=== PATIENT | female | born 2005 | race Caucasian/White ===

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

== ENCOUNTER 2024-09-05 18:15 | Outpatient (CLI) | payer BC, SELFPAY ==
[2024-09-05] VITALS (17 sets, daily range): BP systolic 106–119; BP diastolic 60–66; PULSE 81–102; TEMP 37.1; O2SAT 98–100; BMI 41.6
--- NOTE | 2024-09-05 18:15 | PC.NURSE ---
Pt arrives to unit with blurry vision, back pain, and cramping.
--- OUTSIDE RECORDS SUMMARY | 2024-09-05 18:22 | XMS_ITS | Data Portability ---
Author Organization [facility] Address [address] [place] [address] Care Team Providers Care Comic Writer Name Role Phone GISELLE GORE Primary Care Provider Assessment Encounter Date Assessment Date Assessment LastModified by Organization Details LastModified Time 08/31/2024 08/31/2024 Patient is _35__weeks . Discussed plan. Not available 08/31/2024 16:18:29 Plan of Treatment Reminders Order Date Submit Date Provider Last Modified By Organization Details Last Modified Time Details Appointments U/S OB BPP 2024 02:30P M ULTRASOUND Not available Not available Not available NST 2024 03:00P M NST SCHEDULE Not available Not available Not available OB ROUTINE 2024 03:30P M Aaron Falcon CNM Not available Not available Not available U/S OB BPP 2024 02:00P M ULTRASOUND Not available Not available Not available NST 2024 02:30P M NST SCHEDULE Not available Not available Not available OB ROUTINE 2024 03:00P M Aaron Falcon CNM Not available Not available Not available U/S OB BPP 2024 02:00P M ULTRASOUND Not available Not available Not available NST 2024 02:30P M NST SCHEDULE Not available Not available Not available OB ROUTINE 2024 03:00P M Aaron Falcon CNM Not available Not available Not available U/S OB BPP 2024 02:00P M ULTRASOUND Not available Not available Not available NST 2024 02:30P M NST SCHEDULE Not available Not available Not available OB ROUTINE 2024 03:00P M Aaron MederosgleROLANDO Not available Not available Not available Lab None recorde d. Referral None recorde d. Procedures None recorde d. Surgeries None recorde d. Imaging US, obstetr ic, biophys ical profile + non-str ess test [email or web address] [facility] [address], [place], [address], 08/26/2024 22:38:13 non-str ess test 2024 025 [email or web address] [address], [place], [address], 08/27/2024 16:22:09 non-str ess test 2024 025 [email or web address] [address], [place], [address], 09/04/2024 07:32:35 US, obstetr ic, biophys ical profile + non-str ess test 2024 025 [email or web address] [address], [place], [address], 09/01/2024 11:03:17 Medication Orders Valtrex 500 mg tablet [address]/[facility][id number], [address] [place] [address], [address], 08/31/2024 16:18:55 Patient TargetsNo targets recorded. Patient InstructionsNo instructions recorded. Reason for Referral None Reported. Results Created Date Observation Date Name Description Value Unit Range Abnormal Flag Note LastModifiedBy Organization Detail LastModifiedTime 08/08/19 25 08/08/2024 TSH TSH 1.31 uIU/m L 0.30-5 .33 Not Available [facility] (Lab) [address], [place], [address], 08/09/2024 07:53:36 08/08/1908/08/2024 T4 FREE T4, free 0.65 NG/dL 0.60-1 .40 This assay is susce ptibl e to inter feren ce from high level s of bioti n which may false ly eleva te resul ts. Pleas e corre late with clini anurag findi ngs. Not Available [facility] (Lab) [address], [place], [address], 08/09/2024 07:53:37 08/31/1908/31/2024 CULTU RE: GROUP B STREP SCREE N, REFLE X SUSCE PTIBI LITY result report SEE RESULT S BELOW Test: Cultu re: Group B Strep , Refle x Susce ptibi lity ([facility] ) Speci men Sourc e: Vagin a/Rec bassem Speci men Type: Vagin al/Re ctal Speci men Date: 025 1537 Resul t Date: 2024 1431 Resul t Statu s: Final resul t Abnor mal: No Resul ting Lab: [facility] [address] [facility] [address] Tel: CULTU RE ----- ----- ----- --- No Group B strep isola paulino at 2 days (ian ctive broth enhan cemen t) Not Available [facility] (Lab) [address], [place], [address], 09/03/2024 15:35:18 08/08/19 25 08/08/2024 US, jett tric, bioph ysica l profi le + non-s tress test No observ ation record ed. [email or web address] [place] [address], [place], [address], 08/08/2024 14:36:41 08/08/19 25 08/08/2024 US, obste tric, bioph ysica l profi le + non-s tress test No observ ation record ed. [email or web address] [address], [place], [address], 08/08/2024 20:15:22 08/13/19 25 08/13/2024 US, obste tric, follo w-up No observ ation record ed. [facility] [address] [place], [address], 08/14/2024 07:35:24 08/13/19 25 08/08/2024 non-s tress test No observ ation record ed. [email or web address] [address] [address], [place], [address], 08/13/2024 20:35:50 08/14/19 25 08/13/2024 US, obste tric, follo w-up No observ ation record ed. [email or web address] [facility] [address] [place], [address], 08/16/2024 18:33:53 08/24/19 25 08/24/2024 US, obste tric, bioph ysica l profi le + non-s tress test No observ ation record ed. [email or web address] [address] [address], [place], [address], 08/24/2024 17:38:30 08/24/19 25 08/24/2024 US, obste tric, bioph ysica l profi le + non-s tress test No observ ation record ed. [email or web address] [address], [place], [address], 08/28/2024 09:48:46 08/24/19 25 08/24/2024 non-s tress test No observ ation record ed. [email or web address] [address] [address], [place], [address], 08/24/2024 15:54:18 08/27/19 25 08/27/2024 non-s tress test No observ ation record ed. [email or web address] [address] [address], [place], [address], 08/27/2024 15:50:28 08/29/19 25 08/08/2024 US, obste tric, bioph ysica l profi le + non-s tress test No observ ation record ed. [email or web address] [address] [address], [place], [address], 08/29/2024 18:53:27 08/31/19 25 08/31/2024 US, obste tric, bioph ysica l profi le + non-s tress test No observ ation record ed. [email or web address] [place] [address], [place], [address], 08/31/2024 18:34:23 08/31/19 25 08/31/2024 US, obste tric, follo w-up No observ ation record ed. [email or web address] [address] [facility], [place], [address], 09/01/2024 13:13:42 08/31/19 25 08/31/2024 non-s tress test No observ ation record ed. [email or web address] [address] [address], [place], [address], 08/31/2024 18:39:24 08/31/19 25 08/31/2024 non-s tress test No observ ation record ed. [address], [place], [address], 08/31/2024 18:41:41 Result Notes None recorded. Problems Name Problem SNOMED Code Status Onset Date Resolution Date Notes Provider Name and Address Organization Details Recorded Time Herpes simplex 67691559 Active 2023 Maria Esther gil [facility] 4 11:55:25 Hypothyro idism 50209676 Active 2023 Maria Esther gil [facility] 4 11:55:43 Daniel thyroidit is 13329221 Active levothyrox ine 25 mcg - Per MFM, labs every 4-6 weeks until 20wks or until stable, the every 2-3 months testing to start @ 32wks Gabi gil, [facility] 4 10:09:49 Irritable bowel syndrome 04270274 Active 2023 Maria Esther gil [facility] 4 11:55:59 Bipolar disorder 54036765 Active lamotrigin e 100mg daily - MFM 05/18/24 1pm u/s & telemed MFM consult Renuka martines [facility], [facility] 4 15:26:56 83671475 Active 2023 Maria Esther gil, [facility] 4 12:01:33 Bipolar disorder 74035649 Active lamotrigin e 100mg daily - MFM 05/18/24 1pm u/s & telemed MFM consult Renuka martines [facility], [facility] 4 15:26:55 Genital herpes simplex 60079780 Active valtrex 500 gm bid Aaron Falcon CNM [address], [place], [address], [facility] 5 16:18:26 Daniel thyroidit is 62702428 Active levothyrox ine 25 mcg - Per MFM, labs every 4-6 weeks until 20wks or until stable, the every 2-3 months testing to start @ 32wks Gabi gil [facility] 10:09:49 Notes:ADHD Problem Notes None recorded. Procedures Surgical History Date Name Laterality Status Provider Name and Address Organization Details Recorded Time 02/29/2024 Date of Last Pap Smear completed Maria Esther Escobar [facility] 02/29/2024 10:15:59 Imaging Results Imaging Date Name Status LastModified by Organiz ation Details LastModified Time 08/08/2024 US, obstetric, biophysical profile + non-stress test completed [email or web address] [place] [address], [place], [address], 08/08/2024 14:36:41 08/08/2024 US, obstetric, biophysical profile + non-stress test completed [email or web address] [address], [place], [address], 08/08/2024 20:15:22 08/13/2024 US, obstetric, follow-up completed [email or web address] [facility] [address] [place] [address], [address], 08/14/2024 07:35:24 08/08/2024 non-stress test completed [email or web address] [place] [address], [place], [address], 08/13/2024 20:35:50 08/13/2024 US, obstetric, follow-up completed [email or web address] [facility] [address] [place], [address], 08/16/2024 18:33:53 08/24/2024 US, obstetric, biophysical profile + non-stress test completed [email or web address] [place] [address], [place], [address], 08/24/2024 17:38:30 08/24/2024 US, obstetric, biophysical profile + non-stress test completed [email or web address] [address], [place], [address], 08/28/2024 09:48:46 08/24/2024 non-stress test completed [email or web address] [place] [facility] [address], [place], [address], 08/24/2024 15:54:18 08/27/2024 non-stress test completed [email or web address] [place] [facility] [address], [place], [address], 08/27/2024 15:50:28 08/08/2024 US, obstetric, biophysical profile + non-stress test completed [email or web address] [place] [address] [address], [place], [address], 08/29/2024 18:53:27 08/31/2024 US, obstetric, biophysical profile + non-stress test completed [email or web address] [address] [address], [place], [address], 08/31/2024 18:34:23 08/31/2024 US, obstetric, follow-up completed [email or web address] [address], [place], [address], 09/01/2024 13:13:42 08/31/2024 non-stress test completed [place] [address], [place], [address], 08/31/2024 18:39:24 08/31/2024 non-stress test completed [email or web address] [place] [facility] [address], [place], [address], 08/31/2024 18:41:41 Procedure Notes None recorded. Medical Equipment None Reported. Allergies Allergen ID Allergen Name Allergen Category Reaction Reaction Severity Criticality Documentation Date Start Date Code Code System Note Provider Name and Address Organization Details Recorded Time 84259 sulfameth oxazole / trimethop rim medicatio n Not available Not available Not available 11/27/2020 [address] [facility] 11:36:51 Medications Name Sig Start Date Stop Date Status Note LastModified by Organization Details LastModified Time amoxicillin 500 mg capsule 12/30 completed Not Available Not Available Not Available venlafaxine ER 37.5 mg capsule,ext ended release 24 hr TAKE 1 CAPSULE BY MOUTH DAILY FOR 7 DAYS THEN STOP 04/29 completed Not Available Not Available Not Available venlafaxine ER 75 mg capsule,ext ended release 24 hr TAKE 1 CAPSULE(S ) BY MOUTH EVERY DAY BEGIN THIS DOSE IN TWO WEEKS AFTER COMPLETIN G 37.5MG 04/29 completed Not Available Not Available Not Available doxycycline hyclate 100 mg capsule TAKE 1 CAPSULE BY MOUTH TWICE A DAY FOR 7 DAYS 09/09 completed Not Available Not Available Not Available paroxetine 10 mg tablet 11/27 completed Not Available Not Available Not Available azithromyci n 250 mg tablet 12/30 completed Not Available Not Available Not Available fluconazole 150 mg tablet TAKE 1 TABLET BY MOUTH FOR 1 DOSE TODAY,THE N ONE TAB IN 3 DAYS 09/24 completed Not Available Not Available Not Available valacyclovi r 1 gram tablet Take 1 tablet every 12 hours by oral route. 07/27 completed Not Available Not Available Not Available ranitidine 300 mg tablet 12/30 completed Not Available Not Available Not Available fluconazole 200 mg tablet TAKE 1 TABLET BY MOUTH EVERY OTHER DAY X 3 DOSES. 07/27 completed Not Available Not Available Not Available metronidazo le 0.75 % (37.5 mg/5 gram) vaginal gel INSERT 1 APPLICATO RFUL EVERY DAY BY VAGINAL ROUTE WITH MEALS FOR 5 DAYS. 07/27 completed Not Available Not Available Not Available famotidine 40 mg tablet TAKE 1 TABLET BY MOUTH TWICE A DAY 07/27 completed Not Available Not Available Not Available clonazepam 0.5 mg tablet TAKE 1 TABLET(S) ORAL EVERY 12 HOURS NEEDED FOR ANXIETY 02/22 completed Not Available Not Available Not Available dexamethaso ne 6 mg tablet TAKE 1 TABLET BY MOUTH EVERY DAY 04/29 completed Not Available Not Available Not Available hydroxyzine pamoate 50 mg capsule TAKE 1 CAPSULE BY MOUTH 1 TO 2 TIMES DAILY NEEDED FOR ANXIETY 02/22 completed Not Available Not Available Not Available metronidazo le 500 mg tablet TAKE 1 TABLET BY MOUTH 3 TIMES A DAY FOR 7 DAYS, DO NOT DRINK ALCOHOL WITH THIS MEDICATIO N 07/27 completed Not Available Not Available Not Available levothyroxi ne 25 mcg tablet TAKE 1 TABLET BY MOUTH EVERY DAY DIRECTED active Not Available Not Available No t Available lamotrigine 25 mg tablet TAKE 1 TABLET BY MOUTH EVERY DAY 02/22 completed Not Available Not Available Not Available levothyroxi ne 88 mcg tablet 12/30 completed Not Available Not Available Not Available ciprofloxac in 0.3 % eye drops 05/21 completed Not Available Not Available Not Available phenazopyri dine 100 mg tablet TAKE 1 TABLET BY MOUTH 3 TIMES DAILY NEEDED FOR PAIN. 04/29 completed Not Available Not Available Not Available hyoscyamine 0.125 mg disintegrat ing tablet TAKE 1 TABLET EVERY 4 HOURS NEEDED 07/27 completed Not Available Not Available Not Available cephalexin 500 mg capsule TAKE 1 CAPSULE BY MOUTH TWICE A DAY FOR 7 DAYS 04/29 completed Not Available Not Available Not Available paroxetine 20 mg tablet 11/27 completed Not Available Not Available Not Available pantoprazol e 40 mg tablet,robel yed release TAKE 1 TABLET BY MOUTH EVERY DAY 09/09 completed Not Available Not Available Not Available buspirone 30 mg tablet TAKE 1 TABLET BY MOUTH 3 TIMES A DAY NEEDED ANXIETY 04/29 completed Not Available Not Available Not Available dexamethaso ne 4 mg tablet 12/30 completed Not Available Not Available Not Available fluoxetine 10 mg capsule TAKE 1 CAPSULE BY MOUTH EVERY DAY 09/24 completed Not Available Not Available Not Available hydrocortis one 2.5 % topical cream 12/30 completed Not Available Not Available Not Available hydroxyzine HCl 25 mg tablet TAKE 1 TABLET BY MOUTH EVERY 8 HOURS NEEDED ANXIETY, MAX 3 DAY 07/27 completed Not Available Not Available Not Available Valtrex 500 mg tablet Take 1 tablet twice a day by oral route. 2024 active Not Available Not Available Not Avai lable mupirocin 2 % topical ointment 12/30 completed Not Available Not Available Not Available methylpredn isolone 4 mg tablets in a dose pack 04/28 completed Not Available Not Available Not Available albuterol sulfate HFA 90 mcg/actuati on aerosol inhaler active Not Available Not Available Not Available ondansetron 4 mg disintegrat ing tablet TAKE 1-2 TABLET(S) BY MOUTH EVERY 6-8 HOURS NEEDED FOR NAUSEA/VO MITING 04/29 completed Not Available Not Available Not Available cefdinir 300 mg capsule TAKE 1 CAPSULE BY MOUTH EVERY 12 HOURS 04/29 completed Not Available Not Available Not Available fluoxetine 20 mg capsule TAKE 1 CAPSULE BY MOUTH EVERY DAY 07/27 completed Not Available Not Available Not Available dicyclomine 10 mg capsule 05/21 completed Not Available Not Available Not Available lamotrigine 100 mg tablet TAKE 1 TABLET BY MOUTH EVERY DAY IN THE EVENING active Not Available Not Available No t Available naproxen 500 mg tablet TAKE 1 TABLET BY MOUTH TWICE A DAY NEEDED FOR PAIN 02/28 completed Not Available Not Available Not Available amoxicillin 500 mg-potassiu m clavulanate 125 mg tablet 07/13 completed Not Available Not Available Not Available buspirone 15 mg tablet TAKE 1 TABLET(S) TWO TIMES A DAY NEEDED FOR ANXIETY 04/29 completed Not Available Not Available Not Available hydroxyzine pamoate 25 mg capsule TAKE 1 CAPSULE BY MOUTH TWICE DAILY NEEDED FOR ANXIETY 02/28 completed Not Available Not Available Not Available escitalopra m 20 mg tablet 12/30 completed Not Available Not Available Not Available cyclobenzap rine 5 mg tablet Take 1 tablet 3 times a day by oral route as needed. 07/27 completed Not Available Not Available Not Available nitrofurant oin monohydrate /macrocryst als 100 mg capsule TAKE 1 CAPSULE BY MOUTH TWICE A DAY FOR 5 DAYS 11/27 completed Not Available Not Available Not Available levothyroxi ne 25mcg 11/27 completed Not Available Not Available Not Available Vitamin D 04/28 completed Not Available Not Available Not Available pantoprazol e 11/27 completed Not Available Not Available Not Available Lo Loestrin Fe 1 mg-10 mcg (24)/10 mcg (2) tablet TAKE 1 TABLET BY MOUTH EVERY DAY 02/22 completed Not Available Not Available Not Available Afluria Qd 2018- (36 mos up)(PF)60 mcg (15 mcg x4)/0.5 mL IM syringe 12/30 completed Not Available Not Available Not Available ID NOW COVID-19 Test Kit TEST DIRECTED 05/21 completed Not Available Not Available Not Available Vitals Date Recorded Body weight Body mass index (BMI) Body height Systolic blood pressure Diastolic blood pressure Provider Name and Address Organization Details Last Updated DateTime 08/24/2024 64769.13 666 g 39.9 kg/m2 157.48 cm 123 mm[Hg] 80 mm[Hg] Maria Esther Escobar [facility] 15:53:51 Date Recorded Body height Body mass index (BMI) Body height Body mass index (BMI) Body weight Systolic blood pressure Diastolic blood pressure Systolic blood pressure Diastolic blood pressure Provider Name and Address Organization Details Last Updated DateTime 157.48 cm 40.1 kg/m2 157.48 cm 40.1 kg/m2 84587.7 3 g 114 mm[Hg] 74 mm[Hg] 114 mm[Hg] 74 mm[Hg] Maria Esther Escobar [facility] 18:37:55 Date Recorded Body weight Provider Name an d Address Organization Details Last Updated DateTime 08/31/2024 98266.09306 g Aaron Falcon CNM [address], [place], [address], [facility] 08/31/2024 16:21:07 Social History Question Answer Notes LastModified by Organizat ion Details LastModified Time Tobacco Smoking Status Never Smoker Linn gil, [facility] 12/31/2019 12:41:43 What Is Your Level Of Alcohol Consumption? None Information not available 12/31/2019 If You Are , What Was Your Level Of Alcohol Consumption Prior To ? Occasional [email or web address] Information not available 02/29/2024 Are You Blind Or Do You Have Difficulty Seeing? No Information not available 04/29/2022 What Is Your Level Of Caffeine Consumption? Occasional [email or web address] Information not available 03/21/2024 In The 14 Days Before Symptom Onset, Have You Had Close Contact With A Laboratory-confir med COVID-19 While That Case Was Ill? No [email or web address] Information not available 02/29/2024 In The 14 Days Before Symptom Onset, Have You Had Close Contact With A Person Who Is Under Investigation For COVID-19 While That Person Was Ill? No [email or web address] Information not available 02/29/2024 Have You Been To An Area Known To Be High Risk For COVID-19? No [email or web address] Information not available 02/29/2024 Are You Deaf Or Do You Have Serious Difficulty Hearing? No Information not available 04/29/2022 What Type Of Diet Are You Following? REGULAR Information not available 04/29/2022 Which Illicit Or Recreational Drugs Have You Used? Marijuana Information not available 12/31/2019 Do You Or Have You Ever Used E-cigarettes Or Vape? Current User Of Electronic Cigarettes Information not available 07/27/2022 What Is The Highest Grade Or Level Of School You Have Completed Or The Highest Degree You Have Received? 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 Yes [email or web address] Information not available 03/21/2024 Do You Use Protection During Sex? No [email or web address] Information not available 03/21/2024 Do You Use Your Seat Belt Or Car Seat Routinely? Yes Information not available 04/29/2022 Do You Have Smoke And Carbon Monoxide Detectors In Your Home? Yes Information not available 04/29/2022 Do You Or Have You Ever Used Smokeless Tobacco? Never Used Smokeless Tobacco Information not available 07/27/2022 Do You Feel Stressed (tense, Restless, Nervous, Or Anxious, Or Unable To Sleep At Night)? [id number] Information not available 04/29/2022 Do You Use Any Illicit Or Recreational Drugs? No [email or web address] Information not available 03/21/2024 Do You Use Sunscreen Routinely? No [email or web address] Information not available 03/21/2024 Have You Used IV Drugs? No [email or web address] Information not available 03/21/2024 Do You Or Have You Ever Used Any Other Forms Of Tobacco Or Nicotine? Yes Information not available 07/27/2022 Sex: Unknown Functional Status Question Answer Note LastModified by Organizat ion Details LastModified Time Do you have difficulty walking or climbing stairs? No Information not available 04/29/2022 Are you able to walk? [email or web address] Information not available 04/29/2022 Are you able to care for yourself? Yes Information not available 04/29/2022 Do you have difficulty dressing or bathing? No Information not available 04/29/2022 What is your exercise level? Occasional Information not available 12/31/2019 Mental Status None recorded. Family History Relationship Description Onset Age of this Age Resolved Age Notes LastModified by Organization Details LastModified Time Mother Anemia [email or web address] Not available 13:15:13 Mother Cyst of ovary [email or web address] Not available 2023 09:24:50 Mother Polycystic ovary syndrome [email or web address] Not available 2023 09:24:50 Mother Arthritis [email or web address] Not availab le 06/13/2024 09:24:50 Mother Sj gren's syndrome [email or web address] Not available 2023 09:24:50 Father Diabetes mellitus [email or web address] Not available 2019 13:16:08 Father Hypercholest erolemia jgumber Not available 2019 13:16:34 Father Hypertensive disorder [email or web address] Not available 2019 13:16:58 Paternal Grandmother Diabetes mellitus [email or web address] Not available 2019 13:16:08 Paternal Grandmother Family history of breast cancer [email or web address] Not available 2023 09:24:50 Paternal Grandfather Diabetes mellitus [email or web address] Not available 2019 13:16:08 Paternal Grandfather Hypercholest erolemia jgumber Not available 2019 13:16:34 Paternal Grandfather Hypertensive disorder [email or web address] Not available 2019 13:16:58 Paternal Grandfather Disorder of cardiovascul ar system [email or web address] Not available 2023 09:24:50 Maternal Grandfather Malignant tumor of lung [email or web address] Not available 2019 13:17:17 Medical History Condition Response Allergies (Food, seasonal, environmental ) N Other Y Breast Cancer N Drug/Latex Allergies/Reactions Y Blood Transfusion N Dermatologic Disorders N Lung Disease N Defects or Inherited Disease N Breast Problem N Gestational Diabetes N Hematologic disorders N Anesthesia Complications N History of STI Y Deep Vein Thrombosis N Polycystic ovary syndrome N Anxiety Disorder Y Autoimmune disease N Arthritis N Infertility N Polyps N Acid Reflux (GERD) N History of abnormal pap N Cancer N Stroke N Varicosities N Neurologic/Epilepsy Y Endometriosis N High Cholesterol N Headaches N Fibromyalgia N Kidney Disease N Heart Problems N Kidney or Bladder Problems N Thyroid Problems Y GI Problems Y Eating Disorder N Anemia N Art (IVF or FET) N Psychiatric Illness Y Ovarian Cancer N Diabetes N Pulmonary (TB, Asthma) N Hepatitis/Liver Disease N No Past Medical History N Eczema N Urinary Tract Infection Y Abuse/Domestic Violence N Asthma N Trauma/Violence N Depression/ depression Y Heart Disease N Pre-Eclampsia N Hypertension N Osteoporosis N Thrombophilias N Gynecological History Statement/Question Response Abnormal Pap N Date of Last Mammogram Date of LMP 12/27/2023 On BCP's at Conception? N N Was last menstrual period normal Y STIs/STDs Y HPV Vaccine N Duration of Flow (days) 7 Current Control Method Are cycles usually normal N Frequency of Cycle (Q days) 26 Sexually Active? Y Menses Monthly N Date of DEXA bone scan Age of first menstrual cycle 9 Date of Last Pap Smear 02/29/2024 Sexual Problems? N Desired Control Method Condoms LMP Approximate N Obstetrics History GPAL:G 1 P 0 0 0 0 Type Value Living 0 Total 1 Past Encounters Encounter ID Performer Location Encounter Start Date Encounter Closed Date Diagnosis/Indication Diagnosis SNOMED-CT Code Diagnosis ICD10 Code Diagnosis Note [id number] Mary Wright [place] [address] [address] 12/31/2019 12:28:21 12/31/2019 18:14:07 Well child visit 568026070 Z00.129 Take Calcium with Vitamin D 1200mg daily if not receiving in daily diet. It is strongly advised to have an annual flu shot and up can obtain at most pharmacies . If you have not had a TDap shot in the last 10 years you should obtain one as well. Discussed with patient & provided with informatio n regarding Gardisil vaccine to prevent the 4 strains for HPV that cause cervical cancer. Encourage safe sexual practices, to use condoms and limit partners if not already in a monogamous relationsh ip. Do monthly self breast exams. BRCA testing is now available for patients with strong genetic history of female cancer. If interested contact the office. Engage in daily exercise of low impact aerobic exercise 45-60 minutes 4-5 times weekly. Avoid tobacco, illicit drugs, and alcohol. This lifestyle behavior pattern will lead to less health conditions and longer life span. If BMI greater than 25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
--- OUTSIDE RECORDS SUMMARY | 2024-09-05 18:22 | XMS_ITS | Clinical Summary ---
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 2 04/11/2019 Active FLUoxetine 10 MG capsule Take 10 mg by mouth daily. Active levothyroxine 25 MCG tablet Take 25 mcg by mouth every morning. Active Social History Tobacco Use Types Packs/Day Years Used Date Smoking Tobacco: Never Smokeless Tobacco: Never Alcohol Use Standard Drinks/Week Comments No 0 (1 standard drink = 0.6 oz pur e alcohol) AUDIT-C Answer Date Recorded Frequency of Alcohol Consumption Never 04/23/2019 Average Number of Drinks Not on file 019 Frequency of Binge Drinking Not on file 03/27 Comments No Sex and Gender Information Value Date Recorded Sex Assigned at Not on file Legal Sex Female 9:07 PM CDT Gender Identity Not on file Sexual Orientation Not on file Last Filed Vital Signs Vital Sign Reading Time Taken Comments Blood Pressure 121/83 10/05/2022 12:49 AM CDT Pulse 98 10/05/2022 12:49 AM CDT Temperature 36.2 C (97.2 F) 10/05/2022 12:49 AM CDT Respiratory Rate 16 10/05/2022 12:49 AM CDT Oxygen Saturation 100% 10/05/2022 12:49 AM CDT Inhaled Oxygen Concentration - - Weight 72.6 kg (160 lb) 10/05/2022 12:49 AM CDT Height 154.9 cm (5' 1 ) 10/05/2022 12:49 AM CDT Body Mass Index 30.23 10/05/2022 12:49 AM CDT Plan of Treatment Health Maintenance Due Date Last Done Comments Annual Physical 2006 HPV Vaccines (2 - 2-dose series) 09/14/2017 03/14/2017 Meningococcal B Vaccine (1 of 2 - Standard) 2019 Hepatitis C 2021 DTaP, Tdap and Td Vaccines (7 - Td or Tdap) 01/25/2024 01/24/2014, 02/02/2008, 10/09/2004, Additional history exists COVID-19 Vaccine ( season) 2024 04/13/2021, 03/02/2021 Influenza Adult (#1) 2024 06/17/2019 Cervical Cancer Screening Pap Smear (Age 21 to 29) Every 3 Years 04/29/2025 04/29/2022 Cervical Cancer Screening 04/29/2025 Hepatitis B Vaccines Completed 2003, 2003, 2003 Pneumococcal Vaccine: Pediatrics (0 to 5 Years) and At-Risk Patients (6 to 64 Years) Aged Out 2003, 2003, 2003 No longer eligible based on patient's age to complete this topic Meningococcal Vaccine Completed 02/05/2020, 014 RSV Immunizations Under 20 Months Aged Out No longer eligible based on patient's age to complete this topic Insurance Care Teams Balling Head Tender Relationship Specialty Start Date End Date Princess Mancilla NP [address] [place] [address] PCP - General NURSE PRACTITIONER 11/27/21 Cheri Manzanares MD [address] [place] [address] FAMILY PRACTICE 11/27/21
--- OUTSIDE RECORDS SUMMARY | 2024-09-05 18:23 | XMS_ITS | Clinical Summary ---
Author Organization [facility] [employer] Address [address] [place] [address] Care Team Providers Care Claims Service Representative Name Role Phone Katelynn Zheng MD Unavailable Suki Romeo Primary Care Provider [phone] Source Comments [facility],non-owned Affiliates and Associated Physician Practices is amultiple site organization consisting of ambulatory clinics and hospital sitesin [place], [place], [place] and [place]. This disclosure is being madepursuant to the Care Everywhere program and may not contain all information available regarding this patient. Last updated 18.[facility] [employer] Allergies Active Allergy Reactions Criticality Noted Date Comments Sulfa Antibiotics Unknown 05/26/2015 Sulfamethoxazole W-Trimethoprim Other,Urticaria Medium 05/26/2015 Medications * Be aware that medications may not be up to date on this document. Alwaysverify current medications with the patient. Medication Sig Dispensed Refills Start Date End Date Status hydrOXYzine pamoate (Vistaril) 25 MG capsule TAKE 1 CAPSULE BY MOUTH 4 TIMES A DAY NEEDED FOR ANXIETY 07/26/2023 Active lamoTRIgine (LaMICtal) 100 MG tablet Take 1 (one) tablet by mouth every evening 07/13/2023 Active levothyroxine (Synthroid) 25 MCG tablet Take 1 (one) tablet by mouth once daily 08/11/2022 Active naproxen (Naprosyn) 500 MG tabletIndications:P olyarthritis,Psoria sis Take 1 (one) tablet by mouth 2 times daily as needed for Pain 60 tablet 08/02/2023 Active Additional Information Patient not taking.Reason: Patient adjusted, Reported on 04/18/2024 valACYclovir (Valtrex) 1 GM tablet Take 0.5 (one-half) tablet by mouth 2 times daily Active Vit-Fe Fumarate-FA ( vitamin) 28-0.8 MG tabletIndications:P regnancy Take 1 (one) tablet by mouth once daily Reasons: Active Active Problems Problem Noted Date Diagnosed Date BMI 39.0-39.9,adult 08/10/2024 Thyroid disease affecting 08/10/2024 Obesity affecting 08/10/2024 Bipolar disease during , antepartum Estimated Date of Delivery Comme nts Yes 10/02/2024 Based on last me nstrual period of 12/27/2023 Resolved Problems Problem Noted Date Diagnosed Date Resolved Date Constipation 08/08/2014 12/04/2014 Urinary tract infection 12/09/200905/26 Overview (06/01/2015): Encounters Date Type Department Care Team Description 08/13/2024 1:45 PM FORKLIFT TECHNICIAN - 08/13/2024 11:59 PM FORKLIFT TECHNICIAN Hospital Encounter [facility] [address] [place] [id number] Head, Trini Traore MD Discharge Disposition: Home or Self Care 07/13/2024 1:45 PM FORKLIFT TECHNICIAN - 07/13/2024 11:59 PM FORKLIFT TECHNICIAN Hospital Encounter [facility] [address] [place] [id number] Rony Velez MD Discharge Disposition: Home or Self Care 06/26/2024 2:20 PM FORKLIFT TECHNICIAN Office Visit [facility] - Rheumatology [address] [place] [address] Katelynn Zheng MD Polyarthritis (Primary Dx) 06/26/2024 Travel 06/15/2024 12:56 PM FORKLIFT TECHNICIAN - 06/15/2024 11:59 PM FORKLIFT TECHNICIAN Hospital Encounter [facility] [address] [place] [id number] Kaitlin Tolbert MD BOBBIN HAULER Discharge Disposition: Home or Self Care 06/15/2024 Orders Only [facility] - Rheumatology [address] [place] [address] Katelynn Zheng MD from Last 3 Months Family History Medical History Relation Name Comments Diabetes - Type 2 Father High Cholesterol Father Hypertension Father Cancer - Lung Maternal Grandfather Cholelithiasis Maternal Grandmother IBS Maternal Grandmother Ulcerative Colitis Maternal Grandmother Cholelithiasis Mother GERD - Gastroesophageal Reflux Disease Mother IBS Mother Stomach ulcers Mother Psoriasis Other 2 possible rheuma toid Cancer - Breast Paternal Grandmother Celiac Disease Neg Hx Maternal cous in Relation Name Status Comments Father Maternal Grandfather Maternal Grandmother Mother Other 1 Other 2 Paternal Grandmother Social History Tobacco Use Types Packs/Day Years Used Date Smoking Tobacco: Never Passive Smoke Exposure: Past Smokeless Tobacco: Never Tobacco Cessation:Counseling Given: Not Answered Alcohol Use Standard Drinks/Week Comments No 0 (1 standard drink = 0.6 oz pur e alcohol) PHQ-2 Answer Date Recorded Patient Health Questionnaire-2 Score 0 06/26/2024 Estimated Date of Delivery Comme nts Yes 10/02/2024 Based on last me nstrual period of 12/27/2023 Sex and Gender Information Value Date Recorded Sex Assigned at Not on file Gender Identity Not on file Sexual Orientation Not on file Last Filed Vital Signs Vital Sign Reading Time Taken Comments Blood Pressure 130/81 08/13/2024 2:56 PM FORKLIFT TECHNICIAN Pulse 113 08/13/2024 2:56 PM FORKLIFT TECHNICIAN Temperature 36.1 C (97 F) 06/26/2024 2:27 PM FORKLIFT TECHNICIAN Respiratory Rate 20 06/06/2015 12:3 0 PM FORKLIFT TECHNICIAN Oxygen Saturation 97% 06/26/2024 2:27 PM FORKLIFT TECHNICIAN Inhaled Oxygen Concentration 100% 12:00 PM FORKLIFT TECHNICIAN Weight 94.3 kg (207 lb 12.8 oz) 06/26/2024 2:27 PM FORKLIFT TECHNICIAN Height 154.9 cm (5' 1 ) 04/18/2024 1:13 PM CDT Body Mass Index 39.26 04/18/2024 1:13 PM CDT Plan of Treatment Upcoming Encounters Date Type Department Care Team (Late st Contact Info) Description 12/26/2024 2:40 PM CDT Office Visit [facility] - Rheumatology [address] [place] [address] Katelynn Zheng MD [address] [place] [id number] Health Maintenance Due Date Last Done Comments HIV SCREENING 2018 HPV VACCINE (1 - 3-dose series) 2018 CHLAMYDIA/GONORRHEA SCREENING 2019 MENINGOCOCCAL (Group B) VACCINE (1 of 2 - Standard) 2019 HEPATITIS C SCREENING 01/13/2021 DTAP/TDAP/TD VACCINES (1 - Tdap) 2022 HEPATITIS B VACCINE (1 of 3 - 19+ 3-dose series) 2022 COVID-19 VACCINE (3 - 2023-2 5 season) 2024 04/13/2021, 03/02/2021 INFLUENZA VACCINE (#1) 2024 06/17/2019 OB-ONE HOUR GLUCOSE 06/26/2024 OB-TDAP CURRENT 07/03/2024 OB-RHOGAM INJECTION 07/10/2024 OB-GROUP B STREP SCREEN 08/28/2024 PAP SMEAR 02/28/2027 02/29/2024, 02/29/2024, 09/01/2021 ZOSTER VACCINE (1 of 2) 2053 HIB VACCINE Aged Out No longer eligi ble based on patient's age to complete this topic MENINGOCOCCAL VACCINE Aged Out No anaid huy eligible based on patient's age to complete this topic PNEUMOCOCCAL VACCINE Aged Out No long er eligible based on patient's age to complete this topic Respiratory Syncytial Virus (RSV) Vaccine Pt: or over 60 yrs (No Doses Required) Completed Procedures Procedure Name Priority Date/Time Associated Diagnosis Comments SONOGRAM - COMPLETE Routine 08/13/2024 1 :59 PM FORKLIFT TECHNICIAN Encounter for supervision of normal first in second trimester (HCC) Medication exposure during first trimester of (HCC) History of Daniel thyroiditis 28 weeks gestation of (HCC) Encounter for follow-up ultrasound of anatomy (HCC) Encounter for ultrasound to assess growth (HCC) SONOGRAM - COMPLETE Routine 07/13/2024 1 :51 PM FORKLIFT TECHNICIAN Encounter for supervision of normal first in second trimester ([facility]) Medication exposure during first trimester of (HCC) History of Daniel thyroiditis 28 weeks gestation of ([facility]) Encounter for follow-up ultrasound of anatomy ([facility]) Encounter for ultrasound to assess growth ([facility]) C-REACTIVE PROTEIN 06/15/2024 2: 32 PM FORKLIFT TECHNICIAN CBC W AUTO DIFFERENTIAL 06/15/2024 2:32 PM FORKLIFT TECHNICIAN ERYTHROCYTE SEDIMENTATION RATE 06/15/2024 2:32 PM FORKLIFT TECHNICIAN HEPATIC FUNCTION PANEL 2:32 PM FORKLIFT TECHNICIAN BUN/CREATININE RATIO W/EGFR 06/15/2024 2:32 PM FORKLIFT TECHNICIAN SONOGRAM - COMPLETE Routine 06/15/2024 1 2:58 PM FORKLIFT TECHNICIAN Medication exposure during first trimester of ([facility]) History of Daniel thyroiditis Encounter for supervision of normal first in second trimester ([facility]) 24 weeks gestation of ([facility]) from Last 3 Months Results * SONOGRAM - COMPLETE (08/13/2024 1:59 PM FORKLIFT TECHNICIAN) Only the most recent of3 resultswithin the time period is included. Linked Results Indication ======== Lamotrigine exposure Obesity, Class I RF + Daniel's Disease History ====== OB History 1 Lab Tests Test Date Result NIPT Low risk Maternal Assessment = Physical Exam Height 155 cm, 5 ft 1 in. Weight 98 kg, 216 lb. Initial weight 86 kg, 189 lb. BMI 40.81 kg/m . Initial BMI 35.71 kg/m . Weight gain 12 kg, 27 lb Method ====== Transabdominal ultrasound examination. View: Sufficient ========= Stein . Number of fetuses: 1 Dating ====== Date Details Gest. age LUKE LMP 12/27/2023 32 w + 6 d 10/02/2024 Stated LUKE 32 w + 6 d 10/02/2024 Assigned dating based on the LMP, selected on 06/15/2024 32 w + 6 d 10/02/2024 General Evaluation Cardiac activity present. FHR 134 bpm. Presentation: cephalic Placenta: Placental site: anterior Amniotic Fluid Assessment ===== Amount of AF: normal MVP 4.3 cm. JOSEPH 13.7 cm. Q1 3.9 cm, Q2 1.4 cm, Q3 4.1 cm, Q4 4.3 cm Biophysical Profile 2: breathing movements 2: Gross body movements 2: tone 2: Amniotic fluid volume NST: reactive 05/03 Biophysical profile score Non Stress Test NST interpretation: reactive. Baseline FHR 130 bpm. Baseline variability: moderate. Accelerations: present Biometry BPD 80.2 mm 32w 1d 24% Hadlock HC 293.8 mm 32w 3d 9% Hadlock AC 305.8 mm 34w 4d 90% Hadlock Femur 62.1 mm 32w 1d 21% Hadlock Humerus 57.6 mm 33w 3d 76% Princess HC / AC 0.96 Weight Calculation: EFW 2,195 g 59% Hadlock EFW (lb,oz) 4 lb 13 oz EFW by Hadlock (EDR-VI-WO-FL) overall normal range, but the AC is at the 90th% Growth Overview = Exam date GA BPD (mm) HC (mm) AC (mm) FL (mm) HL (mm) EFW (g) 06/15/2024 24w 3d 61.6 65% 222 24% 204.1 60% 42.8 24% 40.9 51% 710 46% 07/13/2024 28w 3d 70.5 34% 255.4 7% 244.3 51% 52.6 23% 47.4 27% 1211 34% 08/13/2024 32w 6d 80.2 24% 293.8 9% 305.8 90% 62.1 21% 57.6 76% 2195 59% Anatomy The following structures appear normal: Abdomen Stomach. Kidneys. Bladder. Impression ========= Single, live, intrauterine at 32w 6d growth appears overall normal range, but the AC is at the 90th% Amniotic fluid volume: normal Biophysical profile: 05/03 Follow-up ======== Follow up ultrasound in 4 weeks for growth assessment is recommended Continue weekly BPP/NST at primary OB office, as scheduled Coding ====== Procedures 70013: [place] [address]: Biophysical Profile W NST L PETROLEUM PACS Anatomical Region Laterality Modality Other 08/13/2024 1:59 PM FORKLIFT TECHNICIAN Desiree Connell MD [facility] ORDERABLES * (ABNORMAL) BUN/CREATININE RATIO W/EGFR (06/15/2024 2:32 PM FORKLIFT TECHNICIAN) Pathologist [facility] BUN 9 7 - 25 mg/dL [facility] Creatinine 0.48(L) 0.50 - 0.96 mg/dL [facility] eGFR by Cystatin C 138 > OR = 60 mL/min/1.7 3m2 [facility] BUN/Creatinine Ratio 19 6 - 22 (calc) [facility] Comment: Test Performed at: [facility] [id number] [place] [address] NOHEMI BLAKELY MD 06/15/2024 2:32 PM FORKLIFT TECHNICIAN 06/15/2024 2:34 PM FORKLIFT TECHNICIAN Katelynn Zheng MD LAB - CHEMISTRY [place] [facility] [address] [place] [address] * (ABNORMAL) C-REACTIVE PROTEIN (06/15/2024 2:32 PM FORKLIFT TECHNICIAN) C-Reactive Protein 18.0(H) <8.0 mg/L [facility] Comment: Test Performed at: [facility] [id number] [place] [address] NOHEMI BLAKELY MD 06/15/2024 2:32 PM FORKLIFT TECHNICIAN 06/15/2024 2:34 PM FORKLIFT TECHNICIAN Katelynn Zheng MD LAB - CHEMISTRY ORDE RABLES Performing Organization Address [facility] de Phone Number [facility] [address] [place] [address] * (ABNORMAL) ERYTHROCYTE SEDIMENTATION RATE (06/15/2024 2:32 PM FORKLIFT TECHNICIAN) [facility] Erythrocyte Sedimentation Rate Westergren 28(H) < OR = 20 mm/h [facility] Comment: Test Performed at: [facility]) [id number] [place] [address] NOHEMI BLAKELY MD 06/15/2024 2:32 PM FORKLIFT TECHNICIAN 06/15/2024 2:34 PM FORKLIFT TECHNICIAN Katelynn Zheng MD LAB - HEMATOLOGY ORD ERABLES Performing Organization Address [facility] de Phone Number [facility] [id number] [place] [address] * CBC WITH DIFFERENTIAL (06/15/2024 2:32 PM FORKLIFT TECHNICIAN) Pathologist [facility] White Blood Cell Count 8.8 3.8 - 10.8 Thousand/u L [facility] RBC 4.22 3.80 - 5.10 Million/uL [facility] Hemoglobin 12.1 11.7 - 15.5 g/dL [facility] Hematocrit 36.1 35.0 - 45.0 % [facility] MCV 85.5 80.0 - 100.0 fL [facility] MCH 28.7 27.0 - 33.0 pg [facility] MCHC 33.5 32.0 - 36.0 g/dL [facility] Comment: For adults, a slight decrease in the calculated MCHC value (in the range of 30 to 32 g/dL) is most likely not clinically significant; however, it should be interpreted with caution in correlation with other red cell parameters and the patient's clinical condition. RDW 12.1 11.0 - 15.0 % [facility] Platelet Count 325 140 - 400 Thousand/u L [facility] MPV 9.0 7.5 - 12.5 fL [facility] Neutrophil Absolute 6996 1500 - 7800 cells/uL [facility] Lymphocytes Absolute 1241 850 - 3900 cells/uL [facility] Absolute Monocytes 475 200 - 950 cells/uL [facility] Eosinophils Absolute 70 15 - 500 cells/uL [facility] Basophils Absolute 18 0 - 200 cells/uL [facility] Granulocytes % 79.5 % [facility] Lymphocytes % 14.1 % [facility] Monocytes % 5.4 % [facility] Eosinophils % 0.8 % [facility] Basophils % 0.2 % [facility] Comment: Test Performed at: [facility] ([facility]) [id number] [place] [address] NOHEMI BLAKELY MD 06/15/2024 2:32 PM FORKLIFT TECHNICIAN 06/15/2024 2:34 PM FORKLIFT TECHNICIAN Katelynn Zheng MD LAB - HEMATOLOGY ORD ERABLES Performing Organization Address [facility] Co de Phone Number [facility] [address] [place] [address] * HEPATIC FUNCTION PANEL (06/15/2024 2:32 PM FORKLIFT TECHNICIAN) Pathologist [facility] Protein Total 6.1 6.1 - 8.1 g/dL [facility] Albumin 3.8 3.6 - 5.1 g/dL [facility] Globulin Total 2.3 1.9 - 3.7 g/dL (calc) [facility] Albumin/Globulin Ratio 1.7 1.0 - 2.5 (calc) [facility] Bilirubin Total 0.3 0.2 - 1.2 mg/dL [facility] Bilirubin Direct 0.1 < OR = 0.2 mg/dL [facility] Bilirubin Indirect 0.2 0.2 - 1.2 mg/dL (calc) [facility] Alkaline Phosphatase 80 31 - 125 U/L [facility] AST 11 10 - 30 U/L [facility] ALT 9 6 - 29 U/L [facility] Comment: Test Performed at: [facility]) [id number] [facility] [place] [address] NOHEMI BLAKELY MD 06/15/2024 2:32 PM FORKLIFT TECHNICIAN 06/15/2024 2:34 PM FORKLIFT TECHNICIAN Katelynn Zheng MD LAB - CHEMISTRY ORDE RABBLADIMIR Performing Organization Address [facility] Co de Phone Number [facility] [phone] [place] [address] from Last 3 Months Care Teams Claims Service Representative Relationship Specialty Start Date End Date Suki Romeo PA [address] [place] [address] PCP - General Physician Circular Knife Cutter Machine 06/26/24 Katelynn Zheng MD [address] [place] [address] Rheumatology 08/02/23
--- OUTSIDE RECORDS SUMMARY | 2024-09-05 18:23 | XMS_ITS | Patient Health Summary ---
Author Organization [facility] Address [address] [place] [address] Care Team Providers Care Feeder Catcher Name Role Phone Katelynn Zheng MD Unavailable Suki Romeo Primary Care Provider [phone] Note from [facility],non-owned Affiliates and Associated Physician Practices is amultiple site organization consisting of ambulatory clinics and hospital sitesin [place], [place] and [place]. This disclosure is being madepursuant to the Care Everywhere program and may not contain all information available regarding this patient. Last updated 18.[facility] Allergies * Sulfa Antibiotics(Unknown) * Sulfamethoxazole W-Trimethoprim(Other,Urticaria) -Medium Criticality Medications * Be aware that medications may not be up to date on this document. Alwaysverify current medications with the patient. * hydrOXYzine pamoate (Vistaril) 25 MG capsule(Started 07/26/2023) TAKE 1 CAPSULE BY MOUTH 4 TIMES A DAY NEEDED FOR ANXIETY * lamoTRIgine (LaMICtal) 100 MG tablet(Started 07/13/2023) Take 1 (one) tablet by mouth every evening * levothyroxine (Synthroid) 25 MCG tablet(Started 08/11/2022) Take 1 (one) tablet by mouth once daily * naproxen (Naprosyn) 500 MG tablet(Started 08/02/2023) Take 1 (one) tablet by mouth 2 times daily as needed for Pain * valACYclovir (Valtrex) 1 GM tablet Take 0.5 (one-half) tablet by mouth 2 times daily * Vit-Fe Fumarate-FA ( vitamin) 28-0.8 MG tablet Take 1 (one) tablet by mouth once daily Reasons: Active Problems Problem Noted Date Diagnosed Date BMI 39.0-39.9,adult 08/10/2024 Thyroid disease affecting 08/10/2024 Obesity affecting 08/10/2024 Bipolar disease during , antepartum Resolved Problems Problem Noted Date Diagnosed Date Resolved Date Constipation 08/08/2014 12/04/2014 Urinary tract infection 12/09/200905/26 Social History Tobacco Use Types Packs/Day Years [...] Comments Blood Pressure 130/81 08/13/2024 2:56 PM WHOLESALE LOAN PROCESSOR Pulse 113 08/13/2024 2:56 PM WHOLESALE LOAN PROCESSOR Temperature 36.1 C (97 F) 06/26/2024 2:27 PM WHOLESALE LOAN PROCESSOR Respiratory Rate 20 06/06/2015 12:3 0 PM WHOLESALE LOAN PROCESSOR Oxygen Saturation 97% 06/26/2024 2:27 PM WHOLESALE LOAN PROCESSOR Inhaled Oxygen Concentration 100% 12:00 PM WHOLESALE LOAN PROCESSOR Weight 94.3 kg (207 lb 12.8 oz) 06/26/2024 2:27 PM WHOLESALE LOAN PROCESSOR Height 154.9 cm (5' 1 ) 04/18/2024 1:13 PM CDT Body Mass Index 39.26 04/18/2024 1:13 PM CDT Procedures * SONOGRAM - COMPLETE(Performed 08/13/2024) Performed for Encounter for supervision of normal first in second trimester ([facility]), Medication exposure during first trimester of ([facility]), History of Daniel thyroiditis, 28 weeks gestation of ([facility]), Encounter for follow-up ultrasound of anatomy ([facility]), Encounter for ultrasound to assess growth ([facility]) * SONOGRAM - COMPLETE(Performed 07/13/2024) Performed for Encounter for supervision of normal first in second trimester ([facility]), Medication exposure during first trimester of ([facility]), History of Daniel thyroiditis, 28 weeks gestation of ([facility]), Encounter for follow-up ultrasound of anatomy ([facility]), Encounter for ultrasound to assess growth ([facility]) * C-REACTIVE PROTEIN(Performed 06/15/2024) * CBC W AUTO DIFFERENTIAL(Performed 06/15/2024) * ERYTHROCYTE SEDIMENTATION RATE(Performed 06/15/2024) * HEPATIC FUNCTION PANEL(Performed 06/15/2024) * BUN/CREATININE RATIO W/EGFR(Performed 06/15/2024) * SONOGRAM - COMPLETE(Performed 06/15/2024) Performed for Medication exposure during first trimester of ([facility]), History of Daniel thyroiditis, Encounter for supervision of normal first in second trimester ([facility]), 24 weeks gestation of ([facility]) * SONOGRAM - COMPLETE(Performed 05/18/2024) Performed for Medication exposure during first trimester of ([facility]), Encounter for supervision of normal first in second trimester ([facility]), History of Daniel thyroiditis, 20 weeks gestation of ([facility]), Encounter for anatomic survey ([facility]) * HERPES SIMPLEX 1+2 AB IGG SPEC(Performed 04/18/2024) * SONOGRAM - COMPLETE(Performed 04/18/2024) Performed for Medication exposure during first trimester of ([facility]), Encounter for supervision of normal first in second trimester ([facility]), History of Daniel thyroiditis, Bipolar affective disorder, remission status unspecified ([facility]), Cyst of ovary, unspecified laterality, Encounter for ultrasound ([facility]) * RHEUMATOID FACTOR BLOOD QUANTITATIVE(Performed 08/02/2023) Performed for Polyarthritis, Psoriasis * ERYTHROCYTE SEDIMENTATION RATE(Performed 08/02/2023) Performed for Polyarthritis, Psoriasis * CYCLIC CITRUL PEPTIDE ANTIBODY IGG/IGA (CCP)(Performed 08/02/2023) Performed for Polyarthritis, Psoriasis * C-REACTIVE PROTEIN(Performed 08/02/2023) Performed for Polyarthritis, Psoriasis * RHEUMATOID ARTHRITIS 14-3-3 ETA(Performed 08/02/2023) Performed for Polyarthritis, Psoriasis * HLA TYPING B27(Performed 08/02/2023) Performed for Polyarthritis, Psoriasis * COMPREHENSIVE METABOLIC PANEL(Performed 08/02/2023) Performed for Polyarthritis, Psoriasis * COMPLEMENT C3 C4 PANEL(Performed 08/02/2023) Performed for Polyarthritis, Psoriasis * CBC W AUTO DIFFERENTIAL(Performed 08/02/2023) Performed for Polyarthritis, Psoriasis * BOBBY COMPREHENSIVE PLUS PROFILE(Performed 08/02/2023) Performed for Polyarthritis, Psoriasis * BOBBY BLOOD SCREEN W/REFLEX TITER(Performed 08/02/2023) Performed for Polyarthritis, Psoriasis * SKIN TEST PPD - POINT OF CARE(Performed 08/06/2019) Performed for PPD screening test * EEG AWAKE AND ASLEEP(Performed 2017) Performed for Syncope, convulsive * LAB RESULTS ORDER(Performed 06/27/2015) * HELICOBACTER PYLORI UREASE (STL)(Performed 06/06/2015) Performed for Abdominal pain, generalized * ESOPHAGOGASTRODUODENOSCOPY (EGD) BIOPSY(Performed 06/06/2015) Performed for Abdominal pain, unspecified abdominal location * COLONOSCOPY BIOPSY (ANY METHOD)(Performed 06/06/2015) Performed for Abdominal pain, unspecified abdominal location * PATHOLOGY TISSUE EXAM (STL)(Performed 06/06/2015) Performed for Abdominal pain, unspecified abdominal location * HCG URINE QUALITATIVE - POCT (IP) BEAKER(Performed 06/06/2015) * ENDOSCOPY, COLON, DIAGNOSTIC(Performed 06/06/2015) Performed for Abdominal pain, generalized, Diarrhea * EGD(Performed 06/06/2015) Performed for Abdominal pain, generalized, Diarrhea * US PELVIS W DOPPLER OVARIES(Performed 06/02/2015) Performed for Abdominal pain, generalized * US ABDOMEN COMPLETE(Performed 06/02/2015) Performed for Abdominal pain, generalized * LAB RESULTS ORDER(Performed 08/19/2014) * URINALYSIS REFLEX TO MICROSCOPIC NO CULTURE(Performed 09/26/2009) Performed for Urinary Tract Infection, Site Not Specified * CULTURE URINE(Performed 09/26/2009) Performed for Urinary Tract Infection, Site Not Specified Results * SONOGRAM - COMPLETE (08/13/2024 1:59 PM WHOLESALE LOAN PROCESSOR) Only the most recent of5 resultswithin the time period is included. Linked [...] tone 2: Amniotic fluid volume NST: reactive /10 Biophysical profile score Non Stress Test NST [...] 4 lb 13 oz EFW by Hadlock ([id number]) overall normal range, but the AC is [...] OB office, as scheduled Coding ====== Procedures 92704: [place] [address]: Biophysical Profile W NST [employer] PACS Anatomical Region Laterality Modality Other 08/13/2024 1:59 PM WHOLESALE LOAN PROCESSOR R Drew Connell MD [facility] ORDERABLES * (ABNORMAL) BUN/CREATININE RATIO W/EGFR (06/15/2024 2:32 PM WHOLESALE LOAN PROCESSOR) BUN 9 7 - 25 mg/dL [facility] Creatinine 0.48(L) 0.50 - 0.96 mg/dL [facility] eGFR by Cystatin C 138 > OR = 60 mL/min/1.7 3m2 [facility] BUN/Creatinine Ratio 19 6 - 22 (calc) [facility] Comment: Test Performed at: [facility] [address] [employer], [place] [id number] NOHEMI BLAKELY MD 06/15/2024 2:32 PM WHOLESALE LOAN PROCESSOR 06/15/2024 2:34 PM WHOLESALE LOAN PROCESSOR Katelynn Zheng MD LAB - CHEMISTRY ORDAshutosh TINSLEY Performing Organization Address [facility] [place] [address] * (ABNORMAL) C-REACTIVE PROTEIN (06/15/2024 2:32 PM WHOLESALE LOAN PROCESSOR) Only the most recent of2 resultswithin the time period is included. C-Reactive Protein 18.0(H) <8.0 mg/L [facility] Comment: Test Performed at: [employer], [place] [address] NOHEMI BLAKELY MD 06/15/2024 2:32 PM WHOLESALE LOAN PROCESSOR 06/15/2024 2:34 PM WHOLESALE LOAN PROCESSOR Kaetlynn Zheng MD LAB - CHEMISTRY TANG TINSLEY Performing Organization Address [facility] [place] [address] * (ABNORMAL) ERYTHROCYTE SEDIMENTATION RATE (06/15/2024 2:32 PM WHOLESALE LOAN PROCESSOR) Only the most recent of2 resultswithin the time period is included. Erythrocyte Sedimentation Rate Westergren 28(H) < OR = 20 mm/h [facility] Comment: Test Performed at: [employer], [place] [phone] NOHEMI BLAKELY MD 06/15/2024 2:32 PM WHOLESALE LOAN PROCESSOR 06/15/2024 2:34 PM WHOLESALE LOAN PROCESSOR Katelynn Zheng MD LAB - HEMATOLOGY ORD ERABLES Performing Organization Address [facility] Co de Phone Number [address] [address] * CBC WITH DIFFERENTIAL (06/15/2024 2:32 PM WHOLESALE LOAN PROCESSOR) Only the most recent of2 resultswithin the time period is included. Pathologist [facility] White Blood Cell Count 8.8 3.8 - [...] 0.2 % [facility] Comment: Test Performed at: [employer] [facility] [address] [place] [address] NOHEMI BLAKELY MD 06/15/2024 2:32 PM WHOLESALE LOAN PROCESSOR 06/15/2024 2:34 PM WHOLESALE LOAN PROCESSOR Katelynn Zheng MD LAB - HEMATOLOGY ORD ERABLES [facility] [address] [place] [address] * HEPATIC FUNCTION PANEL (06/15/2024 2:32 PM WHOLESALE LOAN PROCESSOR) Pathologist [facility] Protein Total 6.1 6.1 - 8.1 g/dL [...] 29 U/L [facility] Comment: Test Performed at: [place] [address] NOHEMI BLAKELY MD 06/15/2024 2:32 PM WHOLESALE LOAN PROCESSOR 06/15/2024 2:34 PM WHOLESALE LOAN PROCESSOR Katelynn Zheng MD LAB - CHEMISTRY TANG TINSLEY [facility] [address] [place] [address] * (ABNORMAL) HERPES SIMPLEX 1+2 AB IGG SPEC (04/18/2024 2:39 PM CDT) Pathologist [facility] Herpes Simplex Virus Type 1 52.20(H) index [facility] Herpes Simplex Virus Type 2 <0.90 index [facility] Comment: Index Interpretation ----- <0.90 Negative 0.90-1.09 Equivocal >1.09 Positive This assay utilizes recombinant type-specific antigens to differentiate HSV-1 from HSV-2 infections. A positive result cannot distinguish between recent and past infection. If recent HSV infection is suspected but the results are negative or equivocal, the assay should be repeated in 4-6 weeks. The performance characteristics of the assay have not been established for pediatric populations, immunocompromised patients, or screening. For additional information, please refer to http://education.[employer].AllTrails/faq/FWS490 (This link is being provided for informational/ educational purposes only.) Test Performed at: [employer] [facility] [place] [address] NOHEMI BLAKELY MD 04/18/2024 2:39 PM CDT 04/18/2024 2:40 PM CDT Alla Edward MD LAB - SEROLOGY ORDER CHEYANNE [facility] [address] [place] [address] * RHEUMATOID ARTHRITIS 14-3-3 ETA (08/02/2023 2:28 PM WHOLESALE LOAN PROCESSOR) 14.3.3 eta Protein <0.20 ng/mL [facility] INSURANCE BILL Comment: Reference Range: < 0.20 Comments: 14-3-3 eta protein is a joint-derived, proinflammatory project manager senior that is implicated in the joint erosion process and pathogenesis of RA. Serum 14-3-3 eta is elevated in both early and established RA. - Diagnostic value: 14-3-3 eta is highly specific for RA. Serum 14-3-3 eta may be especially helpful in identifying patients with early RA where it provides a 15% incremental benefit to the diagnostic sensitivity of markers, Rheumatoid Arthritis (RA) Factor and Cyclic Citrullinated Peptide (CCP) Antibodies, i.e. An additional 15% of early RA patients may be detected by 14-3-3 eta (1). - Correlation with radiographic evidence of joint damage. Positive serum 14-3-3 eta levels are associated with higher rates of joint damage as measured by radiographic assessments (Sharp/van griffin Heijde Score) (2). - Serum 14-3-3 eta levels above a threshold of 0.50 ng/ml identify RA patients who will have more rapid radiographic progression, even those who may be in SDAI remission (1). References: 1. Louis N, et al. Serum levels of 14-3-3 eta protein supplement C-reactive protein and rheumatoid arthritis- associated antibodies to predict clinical and radiographic outcomes in a prospective cohort of patients with recent-onset inflammatory polyarthritis. Arthritis Res Ther 2016;18:37 2. Karthik DALAL, et al. 14-3-3 eta is a novel project manager senior associated with the pathogenesis of rheumatoid arthritis and joint damage. Arthritis Res Ther 2014;16:R99. This test was developed and its performance characteristics determined by [facility]. It has not been cleared or approved by the Food and Drug Administration. Blood BLOOD SPECIMEN / Unknown 08/02/2023 2:28 PM WHOLESALE LOAN PROCESSOR 08/02/2023 Narrative Resulting Agency Comment Lab Testing performed at: [facility] [address] [place] [phone] Katelynn Zheng MD LAB - CHEMISTRY TANG TINSLEY [facility] INSURANCE BILL [address] [place] [address] * BOBBY COMPREHENSIVE PLUS PROFILE (08/02/2023 2:28 PM WHOLESALE LOAN PROCESSOR) Anti-dsDNA Quantitative <1 0 - 9 IU/mL [facility] INSURANCE BILL Comment: Negative <5 Equivocal 5 - 9 Positive >9 SURVEYOR CHAIN HELPER Antibody <0.2 0.0 - 0.9 AI [facility] INSURANCE BILL Brody (LISE) Antibody <0.2 0.0 - 0.9 AI [facility] INSURANCE BILL Brody/SURVEYOR CHAIN HELPER Antibodies <0.2 0.0 - 0.9 AI [facility] INSURANCE BILL Antiscleroderma-70 Antibody <0.2 0.0 - 0.9 AI [facility] INSURANCE BILL Sjogren's Antibodies (SSA) <0.2 0.0 - 0.9 AI [facility] INSURANCE BILL Sjogren's Antibodies (SSB) <0.2 0.0 - 0.9 AI [facility] INSURANCE BILL Antichromatin Antibodies <0.2 0.0 - 0.9 AI [facility] INSURANCE BILL Antiribosomal P Antibody <0.2 0.0 - 0.9 AI [facility] INSURANCE BILL Marianne-1 Antibody <0.2 0.0 - 0.9 AI [facility] INSURANCE BILL Centromere B Antibody <0.2 0.0 - 0.9 AI [facility] INSURANCE BILL See Below [facility] INSURANCE BILL Comment: Autoantibody Disease Association Condition Frequency Antinuclear Antibody, SLE, mixed connective Direct (BOBBY-D) tissue diseases dsDNA SLE 40 - 60% Chromatin Drug induced SLE 90% SLE 48 - 97% SSA (Ro) SLE 25 - 35% Sjogren's Syndrome 40 - 70% Lupus 100% SSB (La) SLE 10% Sjogren's Syndrome 30% Sm (anti-Brody) SLE 15 - 30% SURVEYOR CHAIN HELPER Mixed Connective Tissue Disease 95% (U1 nRNP, SLE 30 - 50% anti-ribonucleoprotein) Polymyositis and/or Dermatomyositis 20% Scl-70 (antiDNA Scleroderma (diffuse) 20 - 35% topoisomerase) Crest 13% Marianne-1 Polymyositis and/or Dermatomyositis 20 - 40% Centromere B Scleroderma - Crest variant 80% Ribosomal P SLE 10 - 20% Blood BLOOD SPECIMEN / Unknown 08/02/2023 2:28 PM WHOLESALE LOAN PROCESSOR 08/02/2023 Narrative Resulting Agency Comment Lab Testing performed at: [employer] [place] [employer] [facility] [phone] Katelynn Zheng MD LAB - CHEMISTRY ORDE RABLES Performing Organization Address City/[facility]/ZIP Co de Phone Number [facility] INSURANCE BILL [address] [place] [address] * CYCLIC CITRUL PEPTIDE ANTIBODY IGG/IGA (CCP) (08/02/2023 2:28 PM WHOLESALE LOAN PROCESSOR) CCP Antibodies IgG/IgA 4 0 - 19 units [facility] INSURANCE BILL Comment: Negative <20 Weak positive 20 - 39 Moderate positive 40 - 59 Strong positive >59 Blood BLOOD SPECIMEN / Unknown 08/02/2023 2:28 PM WHOLESALE LOAN PROCESSOR 08/02/2023 Narrative Resulting Agency Comment Lab Testing performed at: [employer] [place] [address] [facility] [phone] Katelynn Zheng MD LAB - SEROLOGY ORDER CHEYANNE [facility] INSURANCE BILL [address] [place] [address] * (ABNORMAL) RHEUMATOID FACTOR BLOOD QUANTITATIVE (08/02/2023 2:28 PM WHOLESALE LOAN PROCESSOR) Rheumatoid Factor 27.2(H) <14.0 IU/mL [facility] INSURANCE BILL Blood BLOOD SPECIMEN / Unknown 08/02/2023 2:28 PM WHOLESALE LOAN PROCESSOR 08/02/2023 Narrative Resulting Agency Comment Lab Testing performed at: [facility] [address] [facility] [phone] Katelynn Zheng MD LAB - CHEMISTRY TANG TINSLEY Performing Organization Address [facility] de Phone Number [facility] INSURANCE BILL [address] [place] [address] * BOBBY BLOOD SCREEN W/REFLEX TITER (08/02/2023 2:28 PM WHOLESALE LOAN PROCESSOR) BOBBY Negative [facility] INSURANCE BILL Comment: Negative <1:80 Borderline 1:80 Positive >1:80 ICAP nomenclature: AC-0 For more information about Hep-2 cell patterns use ANApatterns.org, the official website for the International Consensus on Antinuclear Antibody (BOBBY) Patterns (ICAP). Blood BLOOD SPECIMEN / Unknown 08/02/2023 2:28 PM WHOLESALE LOAN PROCESSOR 08/02/2023 Narrative Resulting Agency Comment Lab Testing performed at: [address] [phone] Katelynn Zheng MD LAB - CHEMISTRY TANG TINSLEY Performing Organization Address [facility] de Phone Number [facility] INSURANCE BILL [address] [place] [address] * HLA TYPING B27 (08/02/2023 2:28 PM WHOLESALE LOAN PROCESSOR) HLA-B27 Negative [facility] INSURANCE BILL Comment: HLA-B*27 Negative B27 allele interpretation for all loci based on IMGT/HLA database version 3.51.0 This test was developed and its performance characteristics determined by [facility]. It has not been cleared or approved by the Food and Drug Administration. [facility] CLIA ID Number [id number] THis test was performed using Polymerase Chain Reaction (PCR) and Sequence Specific Oligonucleotide Probes (SSOP) technique. Sequence Based Typing (SBT) may be used as a supplemental method when necessary. If you have questions, please call [facility] customer service at or email at [email or web address]. Blood BLOOD SPECIMEN / Unknown 08/02/2023 2:28 PM WHOLESALE LOAN PROCESSOR 08/02/2023 Narrative Resulting Agency Comment Lab Testing performed at: [facility] [address] [facility] [phone] Katelynn Zheng MD LAB - CHEMISTRY TANG TINSLEY [facility] INSURANCE BILL [address] [place] [address] * COMPREHENSIVE METABOLIC PANEL (08/02/2023 2:28 PM WHOLESALE LOAN PROCESSOR) Glucose 86 70 - 99 mg/dL [facility] INSURANCE BILL BUN 7 6 - 20 mg/dL [facility] INSURANCE BILL Creatinine 0.71 0.57 - 1.00 mg/dL [facility] INSURANCE BILL eGFR by CKD-EPI 125 >59 mL/min/1.7 3 [facility] INSURANCE BILL BUN/Creatinine Ratio 10 9 - 23 [facility] INSURANCE BILL Sodium 139 134 - 144 mmol/L [facility] INSURANCE BILL Potassium 4.0 3.5 - 5.2 mmol/L [facility] INSURANCE BILL Chloride 99 96 - 106 mmol/L [facility] INSURANCE BILL CO2 24 20 - 29 mmol/L [facility] INSURANCE BILL Calcium 9.7 8.7 - 10.2 mg/dL [facility] INSURANCE BILL Protein Total 6.9 6.0 - 8.5 g/dL [facility] INSURANCE BILL Albumin 4.5 4.0 - 5.0 g/dL [facility] INSURANCE BILL Globulin Total 2.4 1.5 - 4.5 g/dL [facility] INSURANCE BILL Albumin/Globulin Ratio 1.9 1.2 - 2.2 [facility] INSURANCE BILL Bilirubin Total 0.3 0.0 - 1.2 mg/dL [facility] INSURANCE BILL Alkaline Phosphatase 97 42 - 106 IU/L [facility] INSURANCE BILL AST 17 0 - 40 IU/L [facility] INSURANCE BILL ALT 11 0 - 32 IU/L [facility] INSURANCE BILL Blood BLOOD SPECIMEN / Unknown 08/02/2023 2:28 PM WHOLESALE LOAN PROCESSOR 08/02/2023 Narrative Resulting Agency Comment [facility] performed [facility]: [facility] [address] [facility] [phone] Katelynn Zheng MD LAB - CHEMISTRY TANG TINSLEY [facility] INSURANCE BILL [address] [place] [address] * COMPLEMENT C3 C4 PANEL (08/02/2023 2:28 PM WHOLESALE LOAN PROCESSOR) Complement C3 131 82 - 167 mg/dL [facility] INSURANCE BILL Complement C4 20 12 - 38 mg/dL [facility] INSURANCE BILL Blood BLOOD SPECIMEN / Unknown 08/02/2023 2:28 PM WHOLESALE LOAN PROCESSOR 08/02/2023 Narrative Resulting Agency Comment Lab Testing performed at: [facility] [address] [facility] [phone] Katelynn Zheng MD LAB - CHEMISTRY TANG TINSLEY Performing Organization Address [facility]/ZIP Co de Phone Number [facility] INSURANCE BILL [address] [place] [address] * (ABNORMAL) SKIN TEST PPD - POINT OF CARE (08/06/2019) PPD 0mm(Negati ve) Comment:negative pdd read Other MISCELLANEOUS SAMPLE S / Unknown 08/06/2019 Simon Burns APRN-OIL FIELD PIPELINE SUPERVISOR LAB - POINT OF CA RE ORDERABLES * EEG AWAKE AND ASLEEP (2017 11:39 AM CDT) Narrative [facility] - 2017 11:39 AM CDT Elizabeth Mcdonnell MD 2017 11:[address] [address] CLINICAL NEUROPHYSIOLOGY NAME: Hector Traore Olafjohnny :2005 AD[address]ESS:[address] [place] [id number] [facility] #: [id number] DATE OF TEST:01/17/2017 Requesting Physician :Gretta Alan MD DIRECTOR ACUTE: Elizabeth Mcdonnell MD MEDICAL HISTORY: 12 years old female with spell concerning for seizures Vs syncope MEDICATIONS: Zoloft EEG DESCRIPTION: A routine EEG with scalp electrodes was performed during clinical wakefulness and drowsiness using 51edj monitoring system to record EEG data digitally on this 12 y.o. 0 m.o. patient. The standard 10/20 electrode placement system was used. A variety of referential and bipolar montages were utilized to analyze the data. The duration of study was 42 minutes. The study began at 1.55 PM on 01/17/2017 and ended at 2.37 PM on the same day. EEG FINDINGS: During awake state with eyes closed background activity included evidence of posterior dominant rhythm of 10 Hzs. No significant asymmetry of background activity occurred. During periods of drowsiness posterior dominant rhythm waxed and weaned and there were periods of slowing. No stage 2 sleep noted during this study. Hyperventilation was performed and did not show any epileptiform activity.Photic stimulation using stepwise progression of photic frequency did not elicit any epileptiform abnormality. There were no focal abnormalities, no interictal epileptiform abnormalities occurred. No clinical or electrographic seizures were seen. INTERPRETATION: This routine extended awake and drowsy EEG is normal for patient's age. No pattern with specific correlation with seizure occurred. No focal abnormalities were present. Elizabeth Mcdonnell MD 2017 11:19 AM Lauri Osborne MD NEUROLOGY ORDERABLES [facility] * LAB RESULTS ORDER (06/27/2015 10:50 PM WHOLESALE LOAN PROCESSOR) Only the most recent of2 resultswithin the time period is included. Narrative 06/27/2015 10:50 PM WHOLESALE LOAN PROCESSOR Ordered by an unspecified provider. Scanned Document LAB - THERAPEUTIC DR PAL MONITORING ORDERABLES * HELICOBACTER PYLORI UREASE (STL) (06/06/2015 11:30 AM WHOLESALE LOAN PROCESSOR) Helicobacter pylori Urease Initial Negative Negative 06/07/2015 1:27 PM WHOLESALE LOAN PROCESSOR [facility] Helicobacter pylori Urease Final Negative Negative 06/07/2015 1:27 PM WHOLESALE LOAN PROCESSOR [facility] Microbiology GASTRIC ANTRAL BIOPSY SPECIMEN / Unknown 06/06/2015 11:30 AM WHOLESALE LOAN PROCESSOR 06/06/2015 11:55 AM WHOLESALE LOAN PROCESSOR Edwige Velez MD LAB - MICROBIOLOGY O RDERABLES [place] [facility] [place] [address] * GROSS + MICRO EXAM (STL) (06/06/2015 11:00 AM WHOLESALE LOAN PROCESSOR) Case Report Surgical Pathology Report Case: [id number] Authorizing Provider: Edwige Velez MD Collected: 06/06/2015 11:00 AM Ordering Location: ENDOSCOPY SERVICES Received: 06/06/2015 12:52 PM Pathologist: Brent Lennon MD Specimens: A) - Duodenal Biopsy B) - Stomach Biopsy C) - Esophageal Biopsy, DISTAL D) - Esophageal Biopsy, MID E) - Ileum Terminal F) - Colon Biopsy 06/10/2015 8:46 AM [facility] Final Diagnosis A. DUODENUM, BIOPSY: -NO PATHOLOGIC DIAGNOSIS. B. STOMACH, BIOPSY: -NO PATHOLOGIC DIAGNOSIS. C. DISTAL ESOPHAGUS, BIOPSY: -MILD REACTIVE ALTERATIONS. D. MID ESOPHAGUS, BIOPSY: -NO PATHOLOGIC DIAGNOSIS. E. TERMINAL ILEUM, BIOPSY: -NO PATHOLOGIC DIAGNOSIS. F. COLON, BIOPSY: -NO PATHOLOGIC DIAGNOSIS. 06/10/2015 8:46 AM [facility] Clinical History The patient is a 10-year-old girl who underwent upper endoscopy and colonscopy which were found to be normal. 06/10/2015 8:46 AM [facility] Gross Description The specimens are received fixed in formalin in six containers for gross and microscopic examination. All containers are labeled with the patient's name, Hector Sainz. Specimen A, duodenal biopsy, consists of two soft, yellow-robles tissue fragments, each measuring 0.2 cm in greatest dimension. The specimen is submitted in toto as A1. Specimen B, stomach biopsy, consists of one soft, yellow-robles tissue fragment, 0.4 cm in greatest dimension. The specimen is submitted in toto as B1. Specimen C, distal esophageal biopsy, consists of one 0.3 cm soft, butler-pink tissue fragment submitted in toto as C1. Specimen D, mid esophageal biopsy, consists of two soft, butler-pink tissue fragments, each measuring 0.3 cm in greatest dimension. The specimen is submitted in toto as D1. Specimen E, terminal ileum, consists of one 0.5 cm soft, yellow tissue fragment submitted in toto as E1. Specimen F, colon biopsy, consists of five soft, yellow-robles tissue fragments, 0.2 cm to 0.4 cm in greatest dimension. The specimen is submitted in toto as F1. (/arm) 06/10/2015 8:46 AM [facility] Microscopic Description A. Duodenum, biopsy: Three sections H&E. Pieces of duodenal mucosa are well oriented. The villi are preserved and there is no inflammation. No organisms are seen. B. Stomach, biopsy: Three H&E. Fundic type gastric mucosa contains an appropriate complement of lymphocytes and plasma cells. No acute inflammation is present. C. Distal esophagus, biopsy: Three H&E. A scant squamous mucosa shows mild reactive alterations including increased thickness of the basal layer and spongiosis. No eosinophils or inflammation is identified. D. Mid esophagus, biopsy: Three sections H&E. Sections contain two pieces of normal squamous mucosa and one piece of superficial gastric mucosa without abnormality. E. Terminal ileum, biopsy: Three H&E. Pieces of small intestinal mucosa are normal. F. Colon, biopsy: Three H&E. Pieces of colonic mucosa are normal. (HR/scs) 06/10/2015 8:46 AM [facility] Pathology/Cytology DUODENAL BIOPSY SPECIMEN / Unknown 06/06/2015 11:00 AM WHOLESALE LOAN PROCESSOR 06/06/2015 12:52 PM WHOLESALE LOAN PROCESSOR Miscellaneous samples (specimen) BIOPSY OF STOMACH / Unknown 06/06/2015 11:00 AM [facility] 06/06/2015 12:52 PM WHOLESALE LOAN PROCESSOR Miscellaneous samples (specimen) ESOPHAGEAL BIOPSY SPECIMEN / Unknown 06/06/2015 11:00 AM WHOLESALE LOAN PROCESSOR 06/06/2015 12:52 PM WHOLESALE LOAN PROCESSOR Miscellaneous samples (specimen) ESOPHAGEAL BIOPSY SPECIMEN / Unknown 06/06/2015 11:34 AM WHOLESALE LOAN PROCESSOR 06/06/2015 12:52 PM WHOLESALE LOAN PROCESSOR Miscellaneous samples (specimen) TERMINAL ILEUM RESECTION SPECIMEN / Unknown 06/06/2015 11:37 AM WHOLESALE LOAN PROCESSOR 06/06/2015 12:52 PM WHOLESALE LOAN PROCESSOR Miscellaneous samples (specimen) COLONIC BIOPSY SPECIMEN / Unknown 06/06/2015 11:48 AM WHOLESALE LOAN PROCESSOR 06/06/2015 12:52 PM WHOLESALE LOAN PROCESSOR Edwige Velez MD LAB - PATHOLOGY/CYTO LOGY ORDERABLES Performing Organization Address [facility] Co de Phone Number [facility] [address] [place] [address] * HCG URINE QUALITATIVE - POCT (IP) BEAKER (06/06/2015 9:02 AM WHOLESALE LOAN PROCESSOR) HCG Qual Urine Negative Negative [facility] POCT TESTING QC Verified Yes Yes [facility] PO CT TESTING Urine specimen (specimen) URINE / Unknown 06/06/2015 9:02 AM WHOLESALE LOAN PROCESSOR Edwige Velez MD LAB - POINT OF CARE ORDERABLES Performing Organization Address [facility] de Phone Number [facility] POCT TESTING [address] [phone] * ENDOSCOPY, COLON, DIAGNOSTIC (06/06/2015 5:59 AM WHOLESALE LOAN PROCESSOR) Report Endoscopy POC _ Patient Name: Hector Sainz Gender: Female Date of : 2005 Age: 10 Admit Type: Outpatient Attending MD: Edwige Velez, Order #: [id number] _ Procedure: Colonoscopy Indications: Generalized abdominal pain, Chronic diarrhea Providers: Edwige Velez Referring MD: Gretta Hernandez MD Medicines: General Anesthesia Complications: No immediate complications. _ Procedure: After I obtained informed consent, the scope was passed under direct vision. Throughout the procedure, the patient's blood pressure, pulse, and oxygen saturations were monitored continuously. The Colonoscope was introduced through the anus and advanced to the terminal ileum. The colonoscopy was performed without difficulty. The patient tolerated the procedure well. The quality of the bowel preparation was fair. Findings: The perianal and digital rectal examinations were normal. Normal mucosa was found in the entire colon. Biopsies were taken with a cold forceps for histology. Estimated blood loss was minimal. The terminal ileum appeared normal. Biopsies were taken with a cold forceps for histology. Estimated blood loss was minimal. Impression: - Normal mucosa in the entire examined colon. Biopsied. - The examined portion of the ileum was normal. Biopsied. Recommendation: - Discharge patient to home (with parent). Procedure Code(s): --- Professional --- 39752, Colonoscopy, flexible; with biopsy, single or multiple --- Technical --- 45264, Colonoscopy, flexible; with biopsy, single or multiple Diagnosis Code(s): --- Professional --- R10.84, Generalized abdominal pain K52.9, Noninfective gastroenteritis and colitis, unspecified --- Technical --- R10.84, Generalized abdominal pain K52.9, Noninfective gastroenteritis and colitis, unspecified CPT copyright 2014 [employer]. All rights reserved. The codes documented in this report are preliminary and upon door furring installer review may be revised to meet current compliance requirements. Dr. Edwieg Velez Edwige Velez, 06/06/2015 11:57 AM This report has been signed electronically. Number of Addenda: 0 Note Initiated On: 06/06/2015 5:59 AM Procedure Date: 06/06/2015 5:59:06 AM This report has been signed electronically. [facility] 06/06/2015 5:59 AM WHOLESALE LOAN PROCESSOR Edwige Velez MD GI PROCEDURE ORDERAB LES [facility] [address] [facility] [place] [address] * EGD (06/06/2015 5:58 AM WHOLESALE LOAN PROCESSOR) Report Endoscopy POC _ Patient Name: Hector Sainz Gender: Female Date of : 2005 Age: 10 Admit Type: Outpatient Attending MD: Edwige Velez, Order #: [id number] _ Procedure: Upper GI endoscopy Indications: Generalized abdominal pain, Diarrhea Providers: Edwige Velez Referring MD: Gretta Hernandez MD Medicines: General Anesthesia Complications: No immediate complications. _ Procedure: After obtaining informed consent, the endoscope was passed under direct vision. Throughout the procedure, the patient's blood pressure, pulse, and oxygen saturations were monitored continuously. The scope was introduced through the mouth, and advanced to the second part of duodenum. The upper GI endoscopy was accomplished without difficulty. The patient tolerated the procedure well. Findings: No gross lesions were noted in the entire esophagus. Biopsies were taken with a cold forceps for histology. Estimated blood loss was minimal. No gross lesions were noted in the entire examined stomach. Biopsies were taken with a cold forceps for histology. Estimated blood loss was minimal. No gross lesions were noted in the entire examined duodenum. Biopsies were taken with a cold forceps for histology. Estimated blood loss was minimal. Impression: - No gross lesions in esophagus. Biopsied. - No gross lesions in the stomach. Biopsied. - No gross lesions in duodenum. Biopsied. Recommendation: - Discharge patient to home (with parent). - Await pathology results. Procedure Code(s): --- Professional --- 23954, Esophagogastrodu odenoscopy, flexible, transoral; with biopsy, single or multiple --- Technical --- 70922, Esophagogastrodu odenoscopy, flexible, transoral; with biopsy, single or multiple Diagnosis Code(s): --- Professional --- R10.84, Generalized abdominal pain R19.7, Diarrhea, unspecified --- Technical --- R10.84, Generalized abdominal pain R19.7, Diarrhea, unspecified CPT copyright 2014 [employer]. All rights reserved. The codes documented in this report are preliminary and upon door furring installer review may be revised to meet current compliance requirements. Dr. Edwige Velez Edwige Velez, 06/06/2015 11:37 AM This report has been signed electronically. Number of Addenda: 0 Note Initiated On: 06/06/2015 5:58 AM Procedure Date: 06/06/2015 5:58:29 AM This report has been signed electronically. [facility] 06/06/2015 5:58 AM WHOLESALE LOAN PROCESSOR Edwige Velez MD GI PROCEDURE ORDERAB LES [facility] [address] [facility] [place] [address] * US PELVIS W DOPPLER UTERUS OVARIES (06/02/2015 10:36 AM WHOLESALE LOAN PROCESSOR) Anatomical Region Laterality Modality Ultrasound 06/02/2015 10:5 6 AM WHOLESALE LOAN PROCESSOR Impressions 06/02/2015 10:57 AM WHOLESALE LOAN PROCESSOR Normal pelvic sonogram. Normal pelvic Doppler. Narrative 06/02/2015 10:57 AM WHOLESALE LOAN PROCESSOR Pelvic sonogram transabdominal with Doppler History: Abdominal pain. Right ovary: 3.8 x 1.7 x 1.2 cm = 3.9 mL Left ovary: 2.4 x 1.9 x 1.4 cm = 3.2 mL Uterus: 7.4 x 3.4 x 3.8 cm A small amount of fluid is present in the cul-de-sac. The uterus and ovaries are normal. No masses are present in the adnexa. The endometrial stripe is 1.0 cm. Color Doppler and spectral analysis were performed and show arterial and venous flow in each ovary. Procedure Note Shannon Peters MD - 06/02/2015 Pelvic sonogram transabdominal with Doppler History: Abdominal pain. Right ovary: 3.8 x 1.7 x 1.2 cm = 3.9 mL Left ovary: 2.4 x 1.9 x 1.4 cm = 3.2 mL Uterus: 7.4 x 3.4 x 3.8 cm A small amount of fluid is present in the cul-de-sac. The uterus and ovaries are normal. No masses are present in the adnexa. The endometrial stripe is 1.0 cm. Color Doppler and spectral analysis were performed and show arterial and venous flow in each ovary. IMPRESSION Normal pelvic sonogram. Normal pelvic Doppler. Edwige Velez MD US ORDERABLES * US ABDOMEN COMPLETE (06/02/2015 9:35 AM WHOLESALE LOAN PROCESSOR) Anatomical Region Laterality Modality Abdomen Ultrasound 06/02/2015 9:53 AM WHOLESALE LOAN PROCESSOR Impressions 06/02/2015 9:54 AM WHOLESALE LOAN PROCESSOR Normal abdominal sonogram. Narrative 06/02/2015 9:54 AM WHOLESALE LOAN PROCESSOR Abdominal sonogram History: Abdominal pain. The hepatobiliary system, spleen, kidneys, pancreas, and visible retroperitoneal great vessels are normal. Procedure Note Shannon Peters MD - 06/02/2015 Abdominal sonogram History: Abdominal pain. The hepatobiliary system, spleen, kidneys, pancreas, and visible retroperitoneal great vessels are normal. IMPRESSION Normal abdominal sonogram. Edwige Velez MD US ORDERABLES * URINALYSIS ROUTINE AUTO (09/26/2009 3:20 PM WHOLESALE LOAN PROCESSOR) Color UA YELLOW [facility] Character UA CLEAR [facility] Specific [place] UA 1.010 1.003 - 1.030 [facility] pH UA 6.5 5.0 - 8.0 [facility] Protein UA NEGATIVE Negative [facility] Glucose UA NEGATIVE Negative gm/dl [facility] Ketone UA NEGATIVE Negative [facility] Blood UA TRACE-INTACT Negative [facility] Bilirubin UA NEGATIVE Negative [facility] Reducing Substances UA NEGATIVE Negative % [facility] Epithelial Cell UA rare /HPF [facility] Crystals UA Small Amorphous [facility] Leukocyte UA NEGATIVE [facility] Nitrite UA NEGATIVE [facility] Urobilinogen UA 0.2 <=1.0 EU/dl [facility] URINE / Unknown 09/26/2009 3 :20 PM WHOLESALE LOAN PROCESSOR Sandro Heaton MD LAB - URINALYSIS OR DERABLES [facility] * CULTURE URINE (09/26/2009 3:20 PM WHOLESALE LOAN PROCESSOR) Report [facility] Comment: Final - GRAM STAIN No organisms seen CULTURE NO GROWTH (<1000 CFU/ml) URINE SPECIMEN OBTAINED BY CLEAN CATCH PROCEDURE / Unknown 09/26/2009 3:20 PM WHOLESALE LOAN PROCESSOR Sandro Heaton MD LAB - MICROBIOLOGY ORDERABLES [facility] Care Teams Feeder Catcher Relationship Specialty Start Date End Date Suki Romeo PA [address] [place] [address] PCP - General Physician Project Controls Scheduler 06/26/24 Katelynn Zheng MD [address] [place] [id number] Rheumatology 08/02/23
--- OUTSIDE RECORDS SUMMARY | 2024-09-05 18:23 | XMS_ITS | Referral Summary ---
Author Organization [facility] Address [address] [place] [address] Care Team Providers Care Radiological Engineer Name Role Phone Katelynn Zheng MD Unavailable Suki Romeo Primary Care Provider Source Comments [facility],non-owned Affiliates and Associated Physician Practices is amultiple site organization consisting of ambulatory clinics and hospital sitesin [place], [place], [place] and [place]. This disclosure is being madepursuant to the Care Everywhere program and may not contain all information available regarding this patient. Last updated 18.[facility] Encounters Date Type Department Care Team Description 08/13/2024 1:45 PM LUBE TECHNICIAN - 08/13/2024 11:59 PM LUBE TECHNICIAN Hospital Encounter [facility] [address] [place] [id number] Head, Trini Traore MD Discharge Disposition: Home or Self Care 07/13/2024 1:45 PM LUBE TECHNICIAN - 07/13/2024 11:59 PM LUBE TECHNICIAN Hospital Encounter [facility] [address] [place] [address] Rony Velez MD Discharge Disposition: Home or Self Care 06/26/2024 Travel 06/26/2024 2:20 PM LUBE TECHNICIAN Office Visit [facility] Medical [facility] - Rheumatology [address] [facility] [address] [place] [address] Katelynn Zheng MD Polyarthritis (Primary Dx) 06/15/2024 Orders Only [facility] - Rheumatology [address] [facility] [address] [place] [address] Katelynn Zheng MD 06/15/2024 12:56 PM LUBE TECHNICIAN - 06/15/2024 11:59 PM LUBE TECHNICIAN Hospital Encounter [facility]'s [facility] Maternal & Care [address] [place], [place] [id number] Kaitlin Tolbert MD SUPERVISOR COOK ROOM Discharge Disposition: Home or Self Care from Last 3 Months Allergies Active Allergy Reactions Criticality Noted Date [...] 12/04/2014 Urinary tract infection 12/09/200905/26 Overview (06/01/2015): Social History Tobacco Use Types Packs/Day Years [...] Comments Blood Pressure 130/81 08/13/2024 2:56 PM LUBE TECHNICIAN Pulse 113 08/13/2024 2:56 PM LUBE TECHNICIAN Temperature 36.1 C (97 F) 06/26/2024 2:27 PM LUBE TECHNICIAN Respiratory Rate 20 06/06/2015 12:3 0 PM LUBE TECHNICIAN Oxygen Saturation 97% 06/26/2024 2:27 PM LUBE TECHNICIAN Inhaled Oxygen Concentration 100% 12:00 PM LUBE TECHNICIAN Weight 94.3 kg (207 lb 12.8 oz) 06/26/2024 2:27 PM LUBE TECHNICIAN Height 154.9 cm (5' 1 ) 04/18/2024 1:13 PM CDT Body Mass Index 39.26 04/18/2024 1:13 PM CDT Functional Status Functional Status Response Date of Assess ment Is person deaf or have serious hearing difficult y? No 06/06/2015 Is person blind or have serious difficulty seein g? No 06/06/2015 Does person have serious dif ficulty walking/climbing stairs? No 06/06/2015 Does person have difficulty dressing/bathing? No 06/06/2015 Does person have difficulty doing errands alone? No 06/06/2015 Cognitive Status Response Date of Assessm ent Does person have difficulty concentrating/remembering/making decisions? No 06/06/2015 Plan of Treatment Upcoming Encounters Date Type Department Care Team (Late st Contact Info) Description 12/26/2024 2:40 PM CDT Office Visit [facility] - Rheumatology [address] [place] [address] Katelynn Zheng MD [address] [place] [phone] Procedures Procedure Name Priority Date/Time Associated Diagnosis Comments SONOGRAM - COMPLETE Routine 08/13/2024 1 :59 PM LUBE TECHNICIAN Encounter for supervision of normal first in second trimester (HCC) Medication exposure during first trimester of (HCC) History of Daniel thyroiditis 28 weeks gestation of (HCC) Encounter for follow-up ultrasound of anatomy (HCC) Encounter for ultrasound to assess growth (HCC) SONOGRAM - COMPLETE Routine 07/13/2024 1 :51 PM LUBE TECHNICIAN Encounter for supervision of normal first in second trimester (HCC) Medication exposure during first trimester of (HCC) History of Daniel thyroiditis 28 weeks gestation of (HCC) Encounter for follow-up ultrasound of anatomy (HCC) Encounter for ultrasound to assess growth (HCC) C-REACTIVE PROTEIN 06/15/2024 2: 32 PM LUBE TECHNICIAN CBC W AUTO DIFFERENTIAL 06/15/2024 2:32 PM LUBE TECHNICIAN ERYTHROCYTE SEDIMENTATION RATE 06/15/2024 2:32 PM LUBE TECHNICIAN HEPATIC FUNCTION PANEL 2:32 PM LUBE TECHNICIAN BUN/CREATININE RATIO W/EGFR 06/15/2024 2:32 PM LUBE TECHNICIAN SONOGRAM - COMPLETE Routine 06/15/2024 1 2:58 PM LUBE TECHNICIAN Medication exposure during first trimester of (HCC) History of Daniel thyroiditis Encounter for supervision of normal first in second trimester (HCC) 24 weeks gestation of (HCC) from Last 3 Months Results * SONOGRAM - COMPLETE (08/13/2024 1:59 PM LUBE TECHNICIAN) Only the most recent of3 resultswithin [...] ====== Transabdominal ultrasound examination. View: Sufficient ========= Steni . Number of fetuses: 1 Dating ====== [...] 4 lb 13 oz EFW by Hadlock ([id number]) overall normal range, but the AC is [...] OB office, as scheduled Coding ====== Procedures 81710: [place] [address]: Biophysical Profile W NST [employer] PACS Anatomical Region Laterality Modality Other 08/13/2024 1:59 PM LUBE TECHNICIAN R Drew Connell MD [facility] ORDERABLES * (ABNORMAL) BUN/CREATININE RATIO W/EGFR (06/15/2024 2:32 PM LUBE TECHNICIAN) BUN 9 7 - 25 mg/dL [facility] Creatinine 0.48(L) 0.50 - 0.96 mg/dL [facility] eGFR by Cystatin C 138 > OR = 60 mL/min/1.7 3m2 [facility] BUN/Creatinine Ratio 19 6 - 22 (calc) [facility] Comment: Test Performed at: [place] [address] NOHEMI BLAKELY MD 06/15/2024 2:32 PM LUBE TECHNICIAN 06/15/2024 2:34 PM LUBE TECHNICIAN Katelynn Zheng MD LAB - CHEMISTRY ORDAshutosh TINSLEY Performing Organization Address [facility] Co de Phone Number [facility] [phone] [place] [address] * (ABNORMAL) C-REACTIVE PROTEIN (06/15/2024 2:32 PM LUBE TECHNICIAN) C-Reactive Protein 18.0(H) <8.0 mg/L [facility] Comment: Test Performed at: [place] [address] NOHEMI BLAKELY MD 06/15/2024 2:32 PM LUBE TECHNICIAN 06/15/2024 2:34 PM LUBE TECHNICIAN Katelynn Zheng MD LAB - CHEMISTRY TANG TINSLEY Performing Organization Address [facility] Co de Phone Number [facility] [address] [place] [address] * (ABNORMAL) ERYTHROCYTE SEDIMENTATION RATE (06/15/2024 2:32 PM LUBE TECHNICIAN) Erythrocyte Sedimentation Rate Westergren 28(H) < OR = 20 mm/h [facility] Comment: Test Performed at: [employer] [place] [address] NOHEMI BLAKELY MD 06/15/2024 2:32 PM LUBE TECHNICIAN 06/15/2024 2:34 PM LUBE TECHNICIAN Katelynn Zheng MD LAB - HEMATOLOGY ORD ERAKWAN Performing Organization Address [facility] Co de Phone Number [facility] [address] [place] [address] * CBC WITH DIFFERENTIAL (06/15/2024 2:32 PM LUBE TECHNICIAN) [facility] White Blood Cell Count 8.8 3.8 - [...] 0.2 % [facility] Comment: Test Performed at: [facility] [address] [place] [address] NOHEMI BLAKELY MD 06/15/2024 2:32 PM LUBE TECHNICIAN 06/15/2024 2:34 PM LUBE TECHNICIAN Katelynn Zheng MD LAB - HEMATOLOGY ORD ERABLES [facility] [address] [place] [address] * HEPATIC FUNCTION PANEL (06/15/2024 2:32 PM LUBE TECHNICIAN) [facility] Protein Total 6.1 6.1 - 8.1 g/dL [...] 29 U/L [facility] Comment: Test Performed at: [employer] [place] [address] [place] [address] NOHEMI BLAKELY MD 06/15/2024 2:32 PM LUBE TECHNICIAN 06/15/2024 2:34 PM LUBE TECHNICIAN Katelynn Zheng MD LAB - CHEMISTRY TANG TINSLEY [facility] ([place], [place]) Organization Address City/State/ZIP Co de Phone Number [facility] [address] [place] [address] from Last 3 Months Administered Medications Care Teams Radiological Engineer Relationship Specialty Start Date End Date Suki Romeo PA [address] [place] [address] PCP - General Physician Nutrition Professor 06/26/24 Katelynn Zheng MD [address] [place] [phone] Rheumatology 08/02/23
[2024-09-05 19:08] LABS: Basophils Percent Auto 0.4 % (0.2-1.2); Eosinophils Absolute Auto 0.1 K/mm3 (0-0.3); Eosinophils Percent Auto 1.1 % (0-4.4); Hematocrit 33.6 % (37.0-47.0); Hemoglobin 11.2 g/dL (12.0-15.0); Immature Granulocyte Absolute 0.04 K/mm3 (0.00-0.031); Immature Granulocyte Percent A 0.5 % (0-0.5); Lymphocytes Percent Auto 17.9 % (18.3-44.2); Mean Corpuscular HGB Conc 33.3 g/dl (32-36); Mean Corpuscular Hemoglobin 26.4 pg (26-34); Mean Corpuscular Volume 79.2 fl (80-100); Mean Platelet Volume 8.7 fl (7.4-10.4); Monocytes Absolute Auto 0.7 K/mm3 (0.1-0.6); Monocytes Percent Auto 8.7 % (2.6-8.5); Neutrophils Percent Auto 71.4 % (45.5-73.1); Platelet Count Result 277 k/mm3 (150-375); Red Blood Count 4.24 M/mm3 (4.2-5.4); Red Cell Distribution Width 12.8 % (11.5-14.5); White Blood Count 8.4 K/mm3 (4.5-10.0)
[2024-09-05 19:20] LABS: Alanine Aminotransferase 13 U/L (6-35); Albumin Level 3.3 g/dL (3.5-5.1); Alkaline Phosphatase 125 U/L (38-126); Anion Gap 10 mmol/L (4-12); Aspartate Amino Transferase 21 U/L (14-36); Bilirubin,Total 0.4 mg/dL (0.2-1.3); Blood Urea Nitrogen 4 mg/dL (7-17); Calcium 9.6 mg/dL (8.4-10.2); Carbon Dioxide 20 mmol/L (22-30); Chloride 106 mmol/L (98-107); Estimated CRCL calculation 167 ml/min; Estimated Glomerular Filt Rate > 60; Glucose 89 mg/dL (65-110); Potassium 3.8 mmol/L (3.4-5.0); Sodium 136 mmol/L (137-145); Uric Acid 3.7 mg/dL (2.5-7.5)
[2024-09-05 19:31] LABS: Creatinine Urine 42.9 mg/dL; Total Protein Urine Random 21 mg/dL; Ur Ttl Prot Creatinine Ratio 0.49 mg/mg (0-0.20)
[2024-09-05 19:39] LABS: Add Urine Microscopic? YES; Appearance Urine Clear (Clear); Bacteria Urine None Seen /hpf; Bilirubin Urine Negative (Negative); Blood Urine Negative (Negative); Color Urine Yellow (Yellow); Glucose Urine UA Negative (Negative); Ketones Urine Negative (Negative); Leukocyte Esterase Ur Trace LEU/UL (Negative); Nitrate Urine Negative (Negative); Non Pathogenic Casts 0-2; Protein Urine Negative (Negative); RBC Urine 0-2 /hpf (0-2); Specific Grav Ur 1.009 (1.001-1.035); Squamous Epithelial Cell Urine Few /hpf (Few); Urobilinogen Urine 0.2 mg/dL (<2.0); WBC Urine 0-5 /hpf (0-3)
--- NOTE | 2024-09-05 20:04 | PC.NURSE ---
Called Shyla Falcon CNM, update on pt, blurry vision, swelling, nausea, cramping, blood pressure, labs, and tracing. Orders received to discharge pt with instructions to rest, hydrate, keep next scheduled appointment, and when to return to the unit.
--- NOTE | 2024-09-05 20:19 | PC.NURSE ---
Called Shyla Falcon CNM, update on tailbone and back pain. Orders received to use a wedge when sitting, discharge orders remain.
--- NOTE | 2024-09-05 20:27 | PC.NURSE ---
Pt discharged with instructions to rest, hydrate, work release for two days, use a wedge when sitting, keep next scheduled appointment, and when to return to the unit, pt verbalizes understanding.
== END 2024-09-05 20:27 | disposition home or self-care (01) ==
LOC: ANHOBOP 18:20 → ANHOBPP 20:21
PROVIDERS: PCP Physician Assistant Medical; Visit Provider Advanced Practice Midwife
DX: O13.9 Gestational [pregnancy-induced] hypertension without significant proteinuria, unspecified trimester (principal); Z3A.00 Weeks of gestation of pregnancy not specified
CPT/HCPCS: 36415; 59025; 80053; 81001; 82570; 84156; 84550; 85025; 99199

== ENCOUNTER 2024-09-06 12:22 | Outpatient (CLI) | payer BC, SELFPAY ==
--- NOTE | ~2024-09-06 | US_ITS ---
EXAMINATION: US venous doppler [facility] DATE: 09/06/2024 13:38 INDICATION: Right lower limb swelling. TECHNIQUE: Grayscale ultrasound images without and with compression and Doppler ultrasound images of the bilateral lower extremity veins were obtained. COMPARISON: None. FINDINGS: The visualized portions of right common femoral vein, profunda (deep) femoral vein, femoral vein, pop liteal vein, peroneal veins, posterior tibial veins, and greater saphenous vein outflow are patent. The visualized portions of left common femoral vein, profunda femoral vein, femoral vein, popliteal v ein, peroneal veins, posterior tibial veins, and greater saphenous vein outflow are patent. IMPRESSION: 1. No deep venous thrombosis. Reviewed, dictated and finalized at location A. ING CAREGIVER
--- OUTSIDE RECORDS SUMMARY | 2024-09-06 12:30 | XMS_ITS | Clinical Summary ---
Author Organization [facility] Address [address] [place] [address] Care Team Providers Care It Sales Consultant Name Role Phone Princess Mancilla NP Primary Care Provider [phone] Cheri Manzanares MD Unavailable Allergies Active Allergy Reactions Criticality Noted Date [...] to complete this topic Insurance Care Teams It Sales Consultant Relationship Specialty Start Date End Date Princess Mancilla NP [address] [place] [address] PCP - General NURSE PRACTITIONER 11/27/21 Cheri Manzanares MD [address] [place] [address] FAMILY PRACTICE 11/27/21
--- OUTSIDE RECORDS SUMMARY | 2024-09-06 12:31 | XMS_ITS | Referral Summary ---
Author Organization [facility] Address [address] [place] [address] Care Team Providers Care Cement Tile Maker Name Role Phone Katelynn Zheng MD Unavailable Suki Romeo Primary Care Provider Source Comments [facility],non-owned Affiliates and Associated Physician Practices is amultiple site organization consisting of ambulatory clinics and hospital sitesin [place], [place], [place]. This disclosure is being madepursuant to the Care Everywhere program and may not contain all information available regarding this patient. Last updated 18.[facility] Encounters Date Type Department Care Team Description 08/13/2024 1:45 PM PROJECT SYSTEMS ENGINEER - 08/13/2024 11:59 PM PROJECT SYSTEMS ENGINEER Hospital Encounter [facility] [address] [place] [address] Head, Trini Traore MD Discharge Disposition: Home or Self Care 07/13/2024 1:45 PM PROJECT SYSTEMS ENGINEER - 07/13/2024 11:59 PM PROJECT SYSTEMS ENGINEER Hospital Encounter [facility] [address] [place] [address] Rony Velez MD Discharge Disposition: Home or Self Care 06/26/2024 Travel 06/26/2024 2:20 PM PROJECT SYSTEMS ENGINEER Office Visit [facility] - Rheumatology [address] [facility] [address] [place] [address] Katelynn Zheng MD Polyarthritis (Primary Dx) 06/15/2024 Orders Only [facility] - Rheumatology [address] [facility] [address] [place] [address] Katelynn Zheng MD 06/15/2024 12:56 PM PROJECT SYSTEMS ENGINEER - 06/15/2024 11:59 PM PROJECT SYSTEMS ENGINEER Hospital Encounter [facility] [address] [place], [place] [id number] Kaitlin Tolbert MD DIRECTOR BEHAVIORAL HEALTH Discharge Disposition: Home or Self Care from [...] Comments Blood Pressure 130/81 08/13/2024 2:56 PM PROJECT SYSTEMS ENGINEER Pulse 113 08/13/2024 2:56 PM PROJECT SYSTEMS ENGINEER Temperature 36.1 C (97 F) 06/26/2024 2:27 PM PROJECT SYSTEMS ENGINEER Respiratory Rate 20 06/06/2015 12:3 0 PM PROJECT SYSTEMS ENGINEER Oxygen Saturation 97% 06/26/2024 2:27 PM PROJECT SYSTEMS ENGINEER Inhaled Oxygen Concentration 100% 12:00 PM PROJECT SYSTEMS ENGINEER Weight 94.3 kg (207 lb 12.8 oz) 06/26/2024 2:27 PM PROJECT SYSTEMS ENGINEER Height 154.9 cm (5' 1 ) 04/18/2024 [...] PM CDT Office Visit [facility] - Rheumatology [address] [place] [address] Katelynn Zheng MD [address] [place] [phone] Procedures Procedure Name Priority Date/Time Associated Diagnosis Comments SONOGRAM - COMPLETE Routine 08/13/2024 1 :59 PM PROJECT SYSTEMS ENGINEER Encounter for supervision of normal first in second trimester (HCC) Medication exposure during first trimester of (HCC) History of Daniel thyroiditis 28 weeks gestation of (HCC) Encounter for follow-up ultrasound of anatomy (HCC) Encounter for ultrasound to assess growth (HCC) SONOGRAM - COMPLETE Routine 07/13/2024 1 :51 PM PROJECT SYSTEMS ENGINEER Encounter for supervision of normal first in second trimester (HCC) Medication exposure during first trimester of (HCC) History of Daniel thyroiditis 28 weeks gestation of (HCC) Encounter for follow-up ultrasound of anatomy (HCC) Encounter for ultrasound to assess growth (HCC) C-REACTIVE PROTEIN 06/15/2024 2: 32 PM PROJECT SYSTEMS ENGINEER CBC W AUTO DIFFERENTIAL 06/15/2024 2:32 PM PROJECT SYSTEMS ENGINEER ERYTHROCYTE SEDIMENTATION RATE 06/15/2024 2:32 PM PROJECT SYSTEMS ENGINEER HEPATIC FUNCTION PANEL 2:32 PM PROJECT SYSTEMS ENGINEER BUN/CREATININE RATIO W/EGFR 06/15/2024 2:32 PM PROJECT SYSTEMS ENGINEER SONOGRAM - COMPLETE Routine 06/15/2024 1 2:58 PM PROJECT SYSTEMS ENGINEER Medication exposure during first trimester of (HCC) History of Daniel thyroiditis Encounter for supervision of normal first in second trimester (HCC) 24 weeks gestation of (HCC) from Last 3 Months Results * SONOGRAM - COMPLETE (08/13/2024 1:59 PM PROJECT SYSTEMS ENGINEER) Only the most recent of3 resultswithin the [...] 4 lb 13 oz EFW by Hadlock ([id number]) overall normal range, but the AC is [...] OB office, as scheduled Coding ====== Procedures 70282: [place] [address]: Biophysical Profile W NST artandseek PACS Anatomical Region Laterality Modality Other 08/13/2024 1:59 PM PROJECT SYSTEMS ENGINEER R Drew Connell MD [facility] ORDERABLES * (ABNORMAL) BUN/CREATININE RATIO W/EGFR (06/15/2024 2:32 PM PROJECT SYSTEMS ENGINEER) BUN 9 7 - 25 mg/dL [facility] Creatinine 0.48(L) 0.50 - 0.96 mg/dL [facility] eGFR by Cystatin C 138 > OR = 60 mL/min/1.7 3m2 [facility] BUN/Creatinine Ratio 19 6 - 22 (calc) [facility] Comment: Test Performed at: [employer] [place] [address] NOHEMI BLAKELY MD 06/15/2024 2:32 PM PROJECT SYSTEMS ENGINEER 06/15/2024 2:34 PM PROJECT SYSTEMS ENGINEER Katelynn Zheng MD LAB - CHEMISTRY ORDAshutosh TINSLEY Performing Organization Address [facility] Co de Phone Number [facility] [phone] [place] [address] * (ABNORMAL) C-REACTIVE PROTEIN (06/15/2024 2:32 PM PROJECT SYSTEMS ENGINEER) C-Reactive Protein 18.0(H) <8.0 mg/L [facility] Comment: Test Performed at: [place] [place] [address] NOHEMI BLAKELY MD 06/15/2024 2:32 PM PROJECT SYSTEMS ENGINEER 06/15/2024 2:34 PM PROJECT SYSTEMS ENGINEER Katelynn Zheng MD LAB - CHEMISTRY TANG TINSLEY Performing Organization Address [facility] Co de Phone Number [facility] [address] [place] [address] * (ABNORMAL) ERYTHROCYTE SEDIMENTATION RATE (06/15/2024 2:32 PM PROJECT SYSTEMS ENGINEER) Erythrocyte Sedimentation Rate Westergren 28(H) < OR = 20 mm/h [facility] Comment: Test Performed at: [employer] [place] [address] NOHEMI BLAKELY MD 06/15/2024 2:32 PM PROJECT SYSTEMS ENGINEER 06/15/2024 2:34 PM PROJECT SYSTEMS ENGINEER Katelynn Zheng MD LAB - HEMATOLOGY ORD ERAKWAN Performing Organization Address [facility] Co de Phone Number [facility] [address] [place] [address] * CBC WITH DIFFERENTIAL (06/15/2024 2:32 PM PROJECT SYSTEMS ENGINEER) [facility] White Blood Cell Count 8.8 3.8 - [...] 0.2 % [facility] Comment: Test Performed at: [employer] [address] [place] [address] NOHEMI BLAKELY MD 06/15/2024 2:32 PM PROJECT SYSTEMS ENGINEER 06/15/2024 2:34 PM PROJECT SYSTEMS ENGINEER Katelynn Zheng MD LAB - HEMATOLOGY ORD ERABLES [facility] [address] [place] [address] * HEPATIC FUNCTION PANEL (06/15/2024 2:32 PM PROJECT SYSTEMS ENGINEER) [facility] Protein Total 6.1 6.1 - 8.1 g/dL [...] 29 U/L [facility] Comment: Test Performed at: [employer] [place] [address] [place] [address] NOHEMI BLAKELY MD 06/15/2024 2:32 PM PROJECT SYSTEMS ENGINEER 06/15/2024 2:34 PM PROJECT SYSTEMS ENGINEER Katelynn Zheng MD LAB - CHEMISTRY TANG TINSLEY [facility] Organization Address City/State/ZIP Co de Phone Number [facility] [address] [place] [address] from Last 3 Months Administered Medications Care Teams Cement Tile Maker Relationship Specialty Start Date End Date Suki Romeo PA [address] [place] [address] PCP - General Physician Dye Tub Operator 06/26/24 Katelynn Zheng MD [address] [place] [phone] Rheumatology 08/02/23
--- OUTSIDE RECORDS SUMMARY | 2024-09-06 12:31 | XMS_ITS | Clinical Summary ---
Author Organization [facility] [employer] Address [address] [place] [address] Care Team Providers Care Entertainer & Comic Name Role Phone Katelynn Zheng MD Unavailable Suki Romeo Primary Care Provider [phone] Source Comments [facility],non-owned Affiliates and Associated Physician Practices is amultiple site organization consisting of ambulatory clinics and hospital sitesin [place], [place], [place] and [place]. This disclosure is being madepursuant to the Care Everywhere program and may not contain all information available regarding this patient. Last updated 18.[facility] [employer] Allergies Active Allergy Reactions Criticality Noted Date [...] Department Care Team Description 08/13/2024 1:45 PM WEB MERCHANDISER - 08/13/2024 11:59 PM WEB MERCHANDISER Hospital Encounter [facility] [address] [place] [phone] Head, Trini Traore MD Discharge Disposition: Home or Self Care 07/13/2024 1:45 PM WEB MERCHANDISER - 07/13/2024 11:59 PM WEB MERCHANDISER Hospital Encounter [facility] [address] [place] [id number] Rony Velez MD Discharge Disposition: Home or Self Care 06/26/2024 2:20 PM WEB MERCHANDISER Office Visit [facility] - Rheumatology [address] [facility] [address] [place] [address] Katelynn Zheng MD Polyarthritis (Primary Dx) 06/26/2024 Travel 06/15/2024 12:56 PM WEB MERCHANDISER - 06/15/2024 11:59 PM WEB MERCHANDISER Hospital Encounter [facility] [address] [place] [phone] Kaitlin Tolbert MD BILINGUAL TRAINER Discharge Disposition: Home or Self Care 06/15/2024 Orders Only [facility] - Rheumatology [address] [place] [address] Katelynn Zheng MD from Last 3 Months [...] Comments Blood Pressure 130/81 08/13/2024 2:56 PM WEB MERCHANDISER Pulse 113 08/13/2024 2:56 PM WEB MERCHANDISER Temperature 36.1 C (97 F) 06/26/2024 2:27 PM WEB MERCHANDISER Respiratory Rate 20 06/06/2015 12:3 0 PM WEB MERCHANDISER Oxygen Saturation 97% 06/26/2024 2:27 PM WEB MERCHANDISER Inhaled Oxygen Concentration 100% 12:00 PM WEB MERCHANDISER Weight 94.3 kg (207 lb 12.8 oz) 06/26/2024 2:27 PM WEB MERCHANDISER Height 154.9 cm (5' 1 ) 04/18/2024 1:13 PM CDT Body Mass Index 39.26 04/18/2024 1:13 PM CDT Plan of Treatment Upcoming Encounters Date Type Department Care Team (Late st Contact Info) Description 12/26/2024 2:40 PM CDT Office Visit [facility] - Rheumatology [address] [place] [address] Katelynn Zheng MD [address] [place] [phone] Health Maintenance Due Date Last Done Comments [...] - COMPLETE Routine 08/13/2024 1 :59 PM WEB MERCHANDISER Encounter for supervision of normal first in second trimester (HCC) Medication exposure during first trimester of (HCC) History of Daniel thyroiditis 28 weeks gestation of (HCC) Encounter for follow-up ultrasound of anatomy (HCC) Encounter for ultrasound to assess growth (HCC) SONOGRAM - COMPLETE Routine 07/13/2024 1 :51 PM WEB MERCHANDISER Encounter for supervision of normal first in second trimester ([facility]) Medication exposure during first trimester of (HCC) History of Daniel thyroiditis 28 weeks gestation of ([facility]) Encounter for follow-up ultrasound of anatomy ([facility]) Encounter for ultrasound to assess growth ([facility]) C-REACTIVE PROTEIN 06/15/2024 2: 32 PM WEB MERCHANDISER CBC W AUTO DIFFERENTIAL 06/15/2024 2:32 PM WEB MERCHANDISER ERYTHROCYTE SEDIMENTATION RATE 06/15/2024 2:32 PM WEB MERCHANDISER HEPATIC FUNCTION PANEL 2:32 PM WEB MERCHANDISER BUN/CREATININE RATIO W/EGFR 06/15/2024 2:32 PM WEB MERCHANDISER SONOGRAM - COMPLETE Routine 06/15/2024 1 2:58 PM WEB MERCHANDISER Medication exposure during first trimester of ([facility]) History of Daniel thyroiditis Encounter for supervision of normal first in second trimester ([facility]) 24 weeks gestation of ([facility]) from Last 3 Months Results * SONOGRAM - COMPLETE (08/13/2024 1:59 PM WEB MERCHANDISER) Only the most recent of3 resultswithin the [...] 4 lb 13 oz EFW by Hadlock ([id number]) overall normal range, but the AC is [...] OB office, as scheduled Coding ====== Procedures 59476: [place] [address]: Biophysical Profile W NST FiFully PACS Anatomical Region Laterality Modality Other 08/13/2024 1:59 PM WEB MERCHANDISER Desiree Connell MD [facility] ORDERABLES * (ABNORMAL) BUN/CREATININE RATIO W/EGFR (06/15/2024 2:32 PM WEB MERCHANDISER) Pathologist [facility] BUN 9 7 - 25 mg/dL [facility] Creatinine 0.48(L) 0.50 - 0.96 mg/dL [facility] eGFR by Cystatin C 138 > OR = 60 mL/min/1.7 3m2 [facility] BUN/Creatinine Ratio 19 6 - 22 (calc) [facility] Comment: Test Performed at: [facility] [address] [place] [address] NOHEMI BLAKELY MD 06/15/2024 2:32 PM WEB MERCHANDISER 06/15/2024 2:34 PM WEB MERCHANDISER Katelynn Zheng MD LAB - CHEMISTRY TANG TINSLEY [facility] [address] [place] [address] * (ABNORMAL) C-REACTIVE PROTEIN (06/15/2024 2:32 PM WEB MERCHANDISER) C-Reactive Protein 18.0(H) <8.0 mg/L [facility] Comment: Test Performed at: [facility] [address] [place] [address] NOHEIM BLAKELY MD 06/15/2024 2:32 PM WEB MERCHANDISER 06/15/2024 2:34 PM WEB MERCHANDISER Katelynn Zheng MD LAB - CHEMISTRY ORDE RABLES Performing Organization Address [facility] de Phone Number [facility] [address] [place] [address] * (ABNORMAL) ERYTHROCYTE SEDIMENTATION RATE (06/15/2024 2:32 PM WEB MERCHANDISER) [facility] Erythrocyte Sedimentation Rate Westergren 28(H) < OR = 20 mm/h [facility] Comment: Test Performed at: [facility] [address] [place] [address] NOHEMI BLAKELY MD 06/15/2024 2:32 PM WEB MERCHANDISER 06/15/2024 2:34 PM WEB MERCHANDISER Katelynn Zheng MD LAB - HEMATOLOGY ORD ERABLES Performing Organization Address [facility] de Phone Number [facility] [phone] [place] [address] * CBC WITH DIFFERENTIAL (06/15/2024 2:32 PM WEB MERCHANDISER) Pathologist [facility] [...] 0.2 % [facility] Comment: Test Performed at: [facility] [address] [place] [address] NOHEMI BLAKELY MD 06/15/2024 2:32 PM WEB MERCHANDISER 06/15/2024 2:34 PM WEB MERCHANDISER Katelynn Zheng MD LAB - HEMATOLOGY ORD ERABLES Performing Organization Address [facility] Co de Phone Number [facility] [address] [place] [address] * HEPATIC FUNCTION PANEL (06/15/2024 2:32 PM WEB MERCHANDISER) Pathologist [facility] [...] 29 U/L [facility] Comment: Test Performed at: [facility] [address] [facility] [place] [place] [address] NOHEMI BLAKELY MD 06/15/2024 2:32 PM WEB MERCHANDISER 06/15/2024 2:34 PM WEB MERCHANDISER Katelynn Zheng MD LAB - CHEMISTRY ORDE RABBLADIMIR Performing Organization Address City/[facility] Co de Phone Number [facility] [address] [place] [address] from Last 3 Months Care Teams Entertainer & Comic Relationship Specialty Start Date End Date Suki Romeo PA [address] [place] [address] PCP - General Physician Oriental Medicine Practitioner 06/26/24 Katelynn Zheng MD [address] [facility] [address] [place] [address] Rheumatology 08/02/23
--- OUTSIDE RECORDS SUMMARY | 2024-09-06 12:31 | XMS_ITS | Patient Health Summary ---
Author Organization [facility] Address [address] [place] [address] Care Team Providers Care Project Internship Name Role Phone Katelynn Zheng MD Unavailable Suki Romeo Primary Care Provider [phone] Note from [facility] [place]non-owned Affiliates and Associated Physician Practices is amultiple site organization consisting of ambulatory clinics and hospital sitesin [place], [place], [place] and [place]. This disclosure is being madepursuant to the Care Everywhere program and may not contain all information available regarding this patient. Last updated 18.[facility] Allergies * Sulfa Antibiotics(Unknown) * Sulfamethoxazole W-Trimethoprim(Other,Urticaria) [...] Comments Blood Pressure 130/81 08/13/2024 2:56 PM DRYING MACHINE BACK TENDER Pulse 113 08/13/2024 2:56 PM DRYING MACHINE BACK TENDER Temperature 36.1 C (97 F) 06/26/2024 2:27 PM DRYING MACHINE BACK TENDER Respiratory Rate 20 06/06/2015 12:3 0 PM DRYING MACHINE BACK TENDER Oxygen Saturation 97% 06/26/2024 2:27 PM DRYING MACHINE BACK TENDER Inhaled Oxygen Concentration 100% 12:00 PM DRYING MACHINE BACK TENDER Weight 94.3 kg (207 lb 12.8 oz) 06/26/2024 2:27 PM DRYING MACHINE BACK TENDER Height 154.9 cm (5' 1 ) 04/18/2024 1:13 PM CDT Body Mass Index 39.26 04/18/2024 1:13 PM CDT Procedures * SONOGRAM - COMPLETE(Performed 08/13/2024) Performed for Encounter for supervision of normal first in second trimester ([facility]), Medication exposure during first trimester of ([facility]), History of Daniel thyroiditis, 28 weeks gestation of ([facility]), Encounter for follow-up ultrasound of anatomy ([facility]), Encounter for ultrasound to assess growth ([facility]) * SONOGRAM - COMPLETE(Performed 07/13/2024) Performed for Encounter for supervision of normal first in second trimester ([facility]), Medication exposure during first trimester of ([facility]), History of Daniel thyroiditis, 28 weeks gestation of ([facility]), Encounter for follow-up ultrasound of anatomy ([facility]), Encounter for ultrasound to assess growth ([facility]) * C-REACTIVE PROTEIN(Performed 06/15/2024) * CBC W AUTO DIFFERENTIAL(Performed 06/15/2024) * ERYTHROCYTE SEDIMENTATION RATE(Performed 06/15/2024) * HEPATIC FUNCTION PANEL(Performed 06/15/2024) * BUN/CREATININE RATIO W/EGFR(Performed 06/15/2024) * SONOGRAM - COMPLETE(Performed 06/15/2024) Performed for Medication exposure during first trimester of ([facility]), History of Daniel thyroiditis, Encounter for supervision of normal first in second trimester ([facility]), 24 weeks gestation of ([facility]) * SONOGRAM - COMPLETE(Performed 05/18/2024) Performed for Medication exposure during first trimester of ([facility]), Encounter for supervision of normal first in second trimester ([facility]), History of Daniel thyroiditis, 20 weeks gestation of ([facility]), Encounter for anatomic survey ([facility]) * HERPES SIMPLEX 1+2 AB IGG SPEC(Performed 04/18/2024) * SONOGRAM - COMPLETE(Performed 04/18/2024) Performed for Medication exposure during first trimester of ([facility]), Encounter for supervision of normal first in second trimester ([facility]), History of Daniel thyroiditis, Bipolar affective disorder, remission status unspecified ([facility]), Cyst of ovary, unspecified laterality, Encounter for ultrasound ([facility]) * RHEUMATOID FACTOR BLOOD QUANTITATIVE(Performed 08/02/2023) Performed [...] * SONOGRAM - COMPLETE (08/13/2024 1:59 PM DRYING MACHINE BACK TENDER) Only the most recent of5 resultswithin the [...] 4 lb 13 oz EFW by Hadlock (INC-DK-QE-FL) overall normal range, but the AC is [...] OB office, as scheduled Coding ====== Procedures 38166: [place] [address]: Biophysical Profile W NST Ubooly PACS Anatomical Region Laterality Modality Other 08/13/2024 1:59 PM DRYING MACHINE BACK TENDER R Drew Connell MD [facility] ORDERABLES * (ABNORMAL) BUN/CREATININE RATIO W/EGFR (06/15/2024 2:32 PM DRYING MACHINE BACK TENDER) BUN 9 7 - 25 mg/dL [facility] Creatinine 0.48(L) 0.50 - 0.96 mg/dL [facility] eGFR by Cystatin C 138 > OR = 60 mL/min/1.7 3m2 [facility] BUN/Creatinine Ratio 19 6 - 22 (calc) [facility] Comment: Test Performed at: [employer] [address] [address] [email or web address], [employer] [phone] NOHEMI BLAKELY MD 06/15/2024 2:32 PM DRYING MACHINE BACK TENDER 06/15/2024 2:34 PM DRYING MACHINE BACK TENDER Katelynn Zheng MD LAB - CHEMISTRY ORDAshutosh TINSLEY Performing Organization Address [facility] [place] [address] * (ABNORMAL) C-REACTIVE PROTEIN (06/15/2024 2:32 PM DRYING MACHINE BACK TENDER) Only the most recent of2 resultswithin the time period is included. C-Reactive Protein 18.0(H) <8.0 mg/L [facility] Comment: Test Performed at: [email or web address], [employer] [id number] NOHEMI BLAKELY MD 06/15/2024 2:32 PM DRYING MACHINE BACK TENDER 06/15/2024 2:34 PM DRYING MACHINE BACK TENDER Katelynn Zheng MD LAB - CHEMISTRY TANG TINSLEY Performing Organization Address [facility] [place] [address] * (ABNORMAL) ERYTHROCYTE SEDIMENTATION RATE (06/15/2024 2:32 PM DRYING MACHINE BACK TENDER) Only the most recent of2 resultswithin the time period is included. Erythrocyte Sedimentation Rate Westergren 28(H) < OR = 20 mm/h [facility] Comment: Test Performed at: [email or web address], [employer] [id number] NOHEMI BLAKELY MD 06/15/2024 2:32 PM DRYING MACHINE BACK TENDER 06/15/2024 2:34 PM DRYING MACHINE BACK TENDER Katelynn Zheng MD LAB - HEMATOLOGY ORD ERABLES Performing Organization Address [facility] Co de Phone Number [address] [address] * CBC WITH DIFFERENTIAL (06/15/2024 2:32 PM DRYING MACHINE BACK TENDER) Only the most recent of2 resultswithin the time period is included. Pathologist [facility] White Blood Cell Count 8.8 3.8 - [...] 0.2 % [facility] Comment: Test Performed at: [employer] [address] [place] [address] NOHEMI BLAKELY MD 06/15/2024 2:32 PM DRYING MACHINE BACK TENDER 06/15/2024 2:34 PM DRYING MACHINE BACK TENDER Katelynn Zheng MD LAB - HEMATOLOGY ORD ERABLES [facility] [address] [place] [address] * HEPATIC FUNCTION PANEL (06/15/2024 2:32 PM DRYING MACHINE BACK TENDER) Pathologist [facility] Protein Total 6.1 6.1 - 8.1 g/dL [...] 29 U/L [facility] Comment: Test Performed at: [place] [address] NOHEMI BLAKELY MD 06/15/2024 2:32 PM DRYING MACHINE BACK TENDER 06/15/2024 2:34 PM DRYING MACHINE BACK TENDER Katelynn Zheng MD LAB - CHEMISTRY TANG TINSLEY [facility] [address] [place] [address] * (ABNORMAL) HERPES SIMPLEX 1+2 AB IGG SPEC (04/18/2024 2:39 PM CDT) Pathologist [facility] Herpes Simplex Virus Type 1 52.20(H) index [...] screening. For additional information, please refer to http://[email or web address].saperatec/faq/OZJ264 (This link is being provided for informational/ educational purposes only.) Test Performed at: [employer] [facility] [place] [place] [address] NOHEMI BLAKELY MD 04/18/2024 2:39 PM CDT 04/18/2024 2:40 PM CDT Alla Edward MD LAB - SEROLOGY ORDER CHEYANNE [facility] [address] [place] [address] * RHEUMATOID ARTHRITIS 14-3-3 ETA (08/02/2023 2:28 PM DRYING MACHINE BACK TENDER) 14.3.3 eta Protein <0.20 ng/mL [facility] INSURANCE BILL Comment: Reference Range: < 0.20 Comments: 14-3-3 eta protein is a joint-derived, proinflammatory guide delegate that is implicated in the joint erosion [...] et al. 14-3-3 eta is a novel guide delegate associated with the pathogenesis of rheumatoid arthritis and joint damage. Arthritis Res Ther 2014;16:R99. This test was developed and its performance characteristics determined by [employer] It has not been cleared or approved by the Food and Drug Administration. Blood BLOOD SPECIMEN / Unknown 08/02/2023 2:28 PM DRYING MACHINE BACK TENDER 08/02/2023 Narrative Resulting Agency Comment Lab Testing performed at: [employer] [address] [place] [phone] Katelynn Zheng MD LAB - CHEMISTRY TANG TINSLEY [facility] INSURANCE BILL [address] [place] [address] * BOBBY COMPREHENSIVE PLUS PROFILE (08/02/2023 2:28 PM DRYING MACHINE BACK TENDER) Anti-dsDNA Quantitative <1 0 - 9 IU/mL [facility] INSURANCE BILL Comment: Negative <5 Equivocal 5 - 9 Positive >9 WEATHER STRIP INSTALLER Antibody <0.2 0.0 - 0.9 AI [facility] INSURANCE BILL Brody (LISE) Antibody <0.2 0.0 - 0.9 AI [facility] INSURANCE BILL Brody/WEATHER STRIP INSTALLER Antibodies <0.2 0.0 - 0.9 AI [facility] [...] 30% Sm (anti-Brody) SLE 15 - 30% WEATHER STRIP INSTALLER Mixed Connective Tissue Disease 95% (U1 nRNP, SLE 30 - 50% anti-ribonucleoprotein) Polymyositis and/or Dermatomyositis 20% Scl-70 (antiDNA Scleroderma (diffuse) 20 - 35% topoisomerase) Crest 13% Marianne-1 Polymyositis and/or Dermatomyositis 20 - 40% Centromere B Scleroderma - Crest variant 80% Ribosomal P SLE 10 - 20% Blood BLOOD SPECIMEN / Unknown 08/02/2023 2:28 PM DRYING MACHINE BACK TENDER 08/02/2023 Narrative Resulting Agency Comment Lab Testing performed at: [employer] [place] [employer] [facility] [phone] Katelynn Zheng MD LAB - CHEMISTRY ORDE RABLES Performing Organization Address City/[facility]/ZIP Co de Phone Number [facility] INSURANCE BILL [address] [place] [address] * CYCLIC CITRUL PEPTIDE ANTIBODY IGG/IGA (CCP) (08/02/2023 2:28 PM DRYING MACHINE BACK TENDER) CCP Antibodies IgG/IgA 4 0 - 19 units [facility] INSURANCE BILL Comment: Negative <20 Weak positive 20 - 39 Moderate positive 40 - 59 Strong positive >59 Blood BLOOD SPECIMEN / Unknown 08/02/2023 2:28 PM DRYING MACHINE BACK TENDER 08/02/2023 Narrative Resulting Agency Comment Lab Testing performed at: [employer] [place] [address] [facility] [phone] Katelynn Zheng MD LAB - SEROLOGY ORDER CHEYANNE [facility] INSURANCE BILL [address] [place] [address] * (ABNORMAL) RHEUMATOID FACTOR BLOOD QUANTITATIVE (08/02/2023 2:28 PM DRYING MACHINE BACK TENDER) Rheumatoid Factor 27.2(H) <14.0 IU/mL [facility] INSURANCE BILL Blood BLOOD SPECIMEN / Unknown 08/02/2023 2:28 PM DRYING MACHINE BACK TENDER 08/02/2023 Narrative Resulting Agency Comment Lab Testing performed at: [facility] [address] [facility] [phone] Katelynn Zheng MD LAB - CHEMISTRY TANG TINSLEY Performing Organization Address [facility] de Phone Number [facility] INSURANCE BILL [address] [place] [address] * BOBBY BLOOD SCREEN W/REFLEX TITER (08/02/2023 2:28 PM DRYING MACHINE BACK TENDER) BOBBY Negative [facility] INSURANCE BILL Comment: Negative <1:80 Borderline 1:80 Positive >1:80 ICAP nomenclature: AC-0 For more information about Hep-2 cell patterns use ANApatterns.org, the official website for the International Consensus on Antinuclear Antibody (BOBBY) Patterns (ICAP). Blood BLOOD SPECIMEN / Unknown 08/02/2023 2:28 PM DRYING MACHINE BACK TENDER 08/02/2023 Narrative Resulting Agency Comment Lab Testing performed at: [address] [id number] Katelynn Zheng MD LAB - CHEMISTRY TANG TINSLEY Performing Organization Address [facility] de Phone Number [facility] INSURANCE BILL [address] [place] [address] * HLA TYPING B27 (08/02/2023 2:28 PM DRYING MACHINE BACK TENDER) HLA-B27 Negative [facility] INSURANCE BILL Comment: HLA-B*27 Negative B27 allele interpretation for all loci based on IMGT/HLA database version 3.51.0 This test was developed and its performance characteristics determined by [employer] It has not been cleared or approved by the Food and Drug Administration. [facility] CLIA ID Number [id number] THis test was performed using Polymerase Chain Reaction (PCR) and Sequence Specific Oligonucleotide Probes (SSOP) technique. Sequence Based Typing (SBT) may be used as a supplemental method when necessary. If you have questions, please call [facility] customer service at or email at [email or web address]. Blood BLOOD SPECIMEN / Unknown 08/02/2023 2:28 PM DRYING MACHINE BACK TENDER 08/02/2023 Narrative Resulting Agency Comment Lab Testing performed at: [facility] [address] [facility] [phone] Katelynn Zheng MD LAB - CHEMISTRY TANG TINSLEY [facility] INSURANCE BILL [address] [place] [address] * COMPREHENSIVE METABOLIC PANEL (08/02/2023 2:28 PM DRYING MACHINE BACK TENDER) Glucose 86 70 - 99 mg/dL [facility] [...] BLOOD SPECIMEN / Unknown 08/02/2023 2:28 PM DRYING MACHINE BACK TENDER 08/02/2023 Narrative Resulting Agency Comment Lab Testing performed at: [facility] [address] [facility] [id number] Katelynn Zheng MD LAB - CHEMISTRY TANG TINSLEY [facility] INSURANCE BILL [address] [place] [address] * COMPLEMENT C3 C4 PANEL (08/02/2023 2:28 PM DRYING MACHINE BACK TENDER) Complement C3 131 82 - 167 mg/dL [facility] INSURANCE BILL Complement C4 20 12 - 38 mg/dL [facility] INSURANCE BILL Blood BLOOD SPECIMEN / Unknown 08/02/2023 2:28 PM DRYING MACHINE BACK TENDER 08/02/2023 Narrative Resulting Agency Comment Lab Testing performed at: [facility] [address] [facility] [phone] Katelynn Zheng MD LAB - CHEMISTRY TANG TINSLEY Performing Organization Address [facility]/ZIP Co de Phone Number [facility] INSURANCE BILL [address] [place] [address] * (ABNORMAL) SKIN TEST PPD - POINT OF CARE (08/06/2019) PPD 0mm(Negati ve) Comment:negative pdd read Other MISCELLANEOUS SAMPLE S / Unknown 08/06/2019 Simon Burns APRN-[employer]INEER[employer] LAB - POINT OF CA RE ORDERABLES * EEG AWAKE AND ASLEEP (2017 11:39 AM CDT) Narrative [facility] - 2017 11:39 AM CDT Elizabeth Mcdonnell MD 2017 11:[address] [address] CLINICAL NEUROPHYSIOLOGY NAME: Hector Traore Olafjohnny :2005 AD[address]ESS:[address] [place] [phone] [facility] #: [id number] DATE OF TEST:01/17/2017 Requesting Physician :Gretta Alan MD CHICKEN BUYER: Elizabeth Mcdonnell MD MEDICAL HISTORY: 12 years old female with spell concerning for seizures Vs syncope MEDICATIONS: Zoloft EEG DESCRIPTION: A routine EEG with scalp electrodes was performed during clinical wakefulness and drowsiness using OneWire monitoring system to record EEG data digitally [...] 11:19 AM Lauri Osborne MD NEUROLOGY ORDERABLES [facility] * LAB RESULTS ORDER (06/27/2015 10:50 PM DRYING MACHINE BACK TENDER) Only the most recent of2 resultswithin the time period is included. Narrative 06/27/2015 10:50 PM DRYING MACHINE BACK TENDER Ordered by an unspecified provider. Scanned Document LAB - THERAPEUTIC DR PAL MONITORING ORDERABLES * HELICOBACTER PYLORI UREASE (STL) (06/06/2015 11:30 AM DRYING MACHINE BACK TENDER) Helicobacter pylori Urease Initial Negative Negative 06/07/2015 1:27 PM DRYING MACHINE BACK TENDER [facility] Helicobacter pylori Urease Final Negative Negative 06/07/2015 1:27 PM DRYING MACHINE BACK TENDER [facility] Microbiology GASTRIC ANTRAL BIOPSY SPECIMEN / Unknown 06/06/2015 11:30 AM DRYING MACHINE BACK TENDER 06/06/2015 11:55 AM DRYING MACHINE BACK TENDER Edwige Velez MD LAB - MICROBIOLOGY O RDERABLES [facility] [place] [address] * GROSS + MICRO EXAM (STL) (06/06/2015 11:00 AM DRYING MACHINE BACK TENDER) Case Report Surgical Pathology Report Case: [id number] Authorizing Provider: Edwige Velez MD Collected: 06/06/2015 11:00 AM Ordering Location: ENDOSCOPY SERVICES Received: 06/06/2015 12:52 PM Pathologist: Brent Lennon MD Specimens: A) - Duodenal Biopsy B) - Stomach Biopsy C) - Esophageal Biopsy, DISTAL D) - Esophageal Biopsy, MID E) - Ileum Terminal F) - Colon Biopsy 06/10/2015 8:46 AM [facility] Final Diagnosis A. DUODENUM, BIOPSY: -NO PATHOLOGIC DIAGNOSIS. B. STOMACH, BIOPSY: -NO PATHOLOGIC DIAGNOSIS. C. DISTAL ESOPHAGUS, BIOPSY: -MILD REACTIVE ALTERATIONS. D. MID ESOPHAGUS, BIOPSY: -NO PATHOLOGIC DIAGNOSIS. E. TERMINAL ILEUM, BIOPSY: -NO PATHOLOGIC DIAGNOSIS. F. COLON, BIOPSY: -NO PATHOLOGIC DIAGNOSIS. 06/10/2015 8:46 AM [facility] Clinical History The patient is a 10-year-old girl who underwent upper endoscopy and colonscopy which were found to be normal. 06/10/2015 8:46 AM [facility] Gross Description The specimens are received [...] toto as F1. (/arm) 06/10/2015 8:46 AM [facility] Microscopic Description A. Duodenum, biopsy: Three [...] mucosa are normal. (HR/scs) 06/10/2015 8:46 AM [facility] Pathology/Cytology DUODENAL BIOPSY SPECIMEN / Unknown 06/06/2015 11:00 AM DRYING MACHINE BACK TENDER 06/06/2015 12:52 PM DRYING MACHINE BACK TENDER Miscellaneous samples (specimen) BIOPSY OF STOMACH / Unknown 06/06/2015 11:00 AM [facility] 06/06/2015 12:52 PM DRYING MACHINE BACK TENDER Miscellaneous samples (specimen) ESOPHAGEAL BIOPSY SPECIMEN / Unknown 06/06/2015 11:00 AM DRYING MACHINE BACK TENDER 06/06/2015 12:52 PM DRYING MACHINE BACK TENDER Miscellaneous samples (specimen) ESOPHAGEAL BIOPSY SPECIMEN / Unknown 06/06/2015 11:34 AM DRYING MACHINE BACK TENDER 06/06/2015 12:52 PM DRYING MACHINE BACK TENDER Miscellaneous samples (specimen) TERMINAL ILEUM RESECTION SPECIMEN / Unknown 06/06/2015 11:37 AM DRYING MACHINE BACK TENDER 06/06/2015 12:52 PM DRYING MACHINE BACK TENDER Miscellaneous samples (specimen) COLONIC BIOPSY SPECIMEN / Unknown 06/06/2015 11:48 AM DRYING MACHINE BACK TENDER 06/06/2015 12:52 PM DRYING MACHINE BACK TENDER Edwige Velez MD LAB - PATHOLOGY/CYTO LOGY ORDERABLES Performing Organization Address [facility] Co de Phone Number [facility] [address] [place] [address] * HCG URINE QUALITATIVE - POCT (IP) BEAKER (06/06/2015 9:02 AM DRYING MACHINE BACK TENDER) HCG Qual Urine Negative Negative [facility] QC Verified Yes Yes [facility] PO CT TESTING Urine specimen (specimen) URINE / Unknown 06/06/2015 9:02 AM DRYING MACHINE BACK TENDER Edwige Velez MD LAB - POINT OF CARE ORDERABLES Performing Organization Address [facility] de Phone Number [facility] [address] [phone] * ENDOSCOPY, COLON, DIAGNOSTIC (06/06/2015 5:59 AM DRYING MACHINE BACK TENDER) Report Endoscopy POC _ Patient Name: Hector Sainz Gender: Female Date of : 2005 Age: 10 Admit Type: Outpatient Attending MD: Edwige Velez, Order #: [id number] _ Procedure: Colonoscopy Indications: Generalized abdominal pain, [...] (with parent). Procedure Code(s): --- Professional --- 45808, Colonoscopy, flexible; with biopsy, single or multiple --- Technical --- 56932, Colonoscopy, flexible; with biopsy, single or multiple Diagnosis Code(s): --- Professional --- R10.84, Generalized abdominal pain K52.9, Noninfective gastroenteritis and colitis, unspecified --- Technical --- R10.84, Generalized abdominal pain K52.9, Noninfective gastroenteritis and colitis, unspecified CPT copyright 2014 [employer]. All rights reserved. The codes documented in this report are preliminary and upon health information coder review may be revised to meet current compliance requirements. Dr. Edwige Velez Edwige Velez, 06/06/2015 11:57 AM This report has been signed electronically. Number of Addenda: 0 Note Initiated On: 06/06/2015 5:59 AM Procedure Date: 06/06/2015 5:59:06 AM This report has been signed electronically. [facility] 06/06/2015 5:59 AM DRYING MACHINE BACK TENDER Edwige Velez MD GI PROCEDURE ORDERAB LES [facility] [address] [facility] [place] [address] * EGD (06/06/2015 5:58 AM DRYING MACHINE BACK TENDER) Report Endoscopy POC _ Patient Name: Hector Sainz Gender: Female Date of : 2005 Age: 10 Admit Type: Outpatient Attending MD: Edwige Velez, Order #: [id number] _ Procedure: Upper GI endoscopy Indications: Generalized abdominal pain, Diarrhea Providers: Edwige Velez Referring MD: Gretta Heranndez MD Medicines: General Anesthesia Complications: No immediate [...] pathology results. Procedure Code(s): --- Professional --- 81405, Esophagogastrodu odenoscopy, flexible, transoral; with biopsy, single or multiple --- Technical --- 13418, Esophagogastrodu odenoscopy, flexible, transoral; with biopsy, single or multiple Diagnosis Code(s): --- Professional --- R10.84, Generalized abdominal pain R19.7, Diarrhea, unspecified --- Technical --- R10.84, Generalized abdominal pain R19.7, Diarrhea, unspecified CPT copyright 2014 [employer]. All rights reserved. The codes documented in this report are preliminary and upon health information coder review may be revised to meet current compliance requirements. Dr. Edwige Velez Edwgie Velez, 06/06/2015 11:37 AM This report has been signed electronically. Number of Addenda: 0 Note Initiated On: 06/06/2015 5:58 AM Procedure Date: 06/06/2015 5:58:29 AM This report has been signed electronically. [facility] 06/06/2015 5:58 AM DRYING MACHINE BACK TENDER Edwige Velez MD GI PROCEDURE ORDERAB LES [facility] [address] [facility] [place] [address] * US PELVIS W DOPPLER UTERUS OVARIES (06/02/2015 10:36 AM DRYING MACHINE BACK TENDER) Anatomical Region Laterality Modality Ultrasound 06/02/2015 10:5 6 AM DRYING MACHINE BACK TENDER Impressions 06/02/2015 10:57 AM DRYING MACHINE BACK TENDER Normal pelvic sonogram. Normal pelvic Doppler. Narrative 06/02/2015 10:57 AM DRYING MACHINE BACK TENDER Pelvic sonogram transabdominal with Doppler History: Abdominal [...] * US ABDOMEN COMPLETE (06/02/2015 9:35 AM DRYING MACHINE BACK TENDER) Anatomical Region Laterality Modality Abdomen Ultrasound 06/02/2015 9:53 AM DRYING MACHINE BACK TENDER Impressions 06/02/2015 9:54 AM DRYING MACHINE BACK TENDER Normal abdominal sonogram. Narrative 06/02/2015 9:54 AM DRYING MACHINE BACK TENDER Abdominal sonogram History: Abdominal pain. The hepatobiliary system, spleen, kidneys, pancreas, and visible retroperitoneal great vessels are normal. Procedure Note Shannon Peters MD - 06/02/2015 Abdominal sonogram History: Abdominal pain. The hepatobiliary system, spleen, kidneys, pancreas, and visible retroperitoneal great vessels are normal. IMPRESSION Normal abdominal sonogram. Edwige Velez MD US ORDERABLES * URINALYSIS ROUTINE AUTO (09/26/2009 3:20 PM DRYING MACHINE BACK TENDER) Color UA YELLOW [facility] Character UA CLEAR [facility] Specific [place] UA 1.010 1.003 - 1.030 [facility] pH UA 6.5 5.0 - 8.0 [facility] Protein UA NEGATIVE Negative [facility] Glucose UA NEGATIVE Negative gm/dl [facility] Ketone UA NEGATIVE Negative [facility] Blood UA TRACE-INTACT Negative [facility] Bilirubin UA NEGATIVE Negative [facility] Reducing Substances UA NEGATIVE Negative % [facility] Epithelial Cell UA rare /HPF [facility] Crystals UA Small Amorphous [facility] Leukocyte UA NEGATIVE [facility] Nitrite UA NEGATIVE [facility] Urobilinogen UA 0.2 <=1.0 EU/dl [facility] URINE / Unknown 09/26/2009 3 :20 PM [employer]YING [employer]ACH[employer] BACK TENDER Sandro Heaton MD LAB - URINALYSIS OR DERABLES [facility] * CULTURE URINE (09/26/2009 3:20 PM DRYING MACHINE BACK TENDER) Report [facility] Comment: Final - GRAM STAIN No organisms seen CULTURE NO GROWTH (<1000 CFU/ml) URINE SPECIMEN OBTAINED BY CLEAN CATCH PROCEDURE / Unknown 09/26/2009 3:20 PM DRYING MACHINE BACK TENDER Sandro Heaton MD LAB - MICROBIOLOGY ORDERABLES [facility] Care Teams Project Internship Relationship Specialty Start Date End Date Suki Romeo PA [address] [place] [id number] PCP - General Physician Interpersonal Communications Professor 06/26/24 Katelynn Zheng MD [address] [place] [id number] Rheumatology 08/02/23
[2024-09-06 12:44] VITALS: BP 126/80; PULSE 103
--- NOTE | 2024-09-06 12:45 | PC.NURSE ---
Pt reports coming in yesterday for swelling in her legs and floaters last night. Pt denies having floaters or blurred vision at this time. Pt has visibility tighter and shinny skin on her right leg over her left. No redness or warmth noted.
[2024-09-06 12:46] VITALS: BP 127/73; PULSE 88
--- NOTE | 2024-09-06 12:46 | PC.NURSE ---
Shyla Falcon updated on pt arrive to the unit. CNM updated with pt having increased swelling in right leg. CNM ordered bilateral LE dopplers
[2024-09-06 13:01] VITALS: BP 128/75; PULSE 104
[2024-09-06 13:23] VITALS: BP 127/73; PULSE 88
--- NOTE | 2024-09-06 13:54 | PC.NURSE ---
Pinky updated with results. CNM okay with pt to go home and see her tomorrow in the office for her regular appointment.
== END 2024-09-06 13:43 | disposition home or self-care (01) ==
LOC: ANHOBOP 12:28 → ANHOBPP 12:31
PROVIDERS: PCP Physician Assistant Medical; Visit Provider Advanced Practice Midwife
DX: R22.41 Localized swelling, mass and lump, right lower limb (principal)
CPT/HCPCS: 59025; 93970; 99199

== ENCOUNTER 2024-09-25 16:02 | Inpatient (IN) | payer BC, SELFPAY ==
[2024-09-25] VITALS (103 sets, daily range): BP systolic 88–146; BP diastolic 39–93; PULSE 81–280; RESP 14–18; TEMP 36.6–37.2; O2SAT 81–100; BMI 42.5
--- NOTE | ~2024-09-25 | XR_ITS ---
Exam: Abdomen 1V HISTORY: EMERGENCY CSECTION INSTRUMENT COUNT COMPARISON: None. TECHNIQUE: Supine images of the abdomen FINDINGS: No radiopaque foreign body is visualized on the submitted image. IMPRESSION: No radiopaque foreign body is visualized on the submitted image Reviewed, dictated and finalized at location A. S CLERK SUPERVISOR
[2024-09-25 18:01] LABS: Basophils Percent Auto 0.2 % (0.2-1.2); Eosinophils Absolute Auto 0.1 K/mm3 (0-0.3); Eosinophils Percent Auto 0.6 % (0-4.4); Hematocrit 34.3 % (37.0-47.0); Hemoglobin 11.4 g/dL (12.0-15.0); Immature Granulocyte Absolute 0.07 K/mm3 (0.00-0.031); Immature Granulocyte Percent A 0.6 % (0-0.5); Lymphocytes Absolute Auto 1.34 K/mm3 (0.9-3.2); Lymphocytes Percent Auto 11.1 % (18.3-44.2); Mean Corpuscular HGB Conc 33.2 g/dl (32-36); Mean Corpuscular Hemoglobin 26.1 pg (26-34); Mean Corpuscular Volume 78.7 fl (80-100); Mean Platelet Volume 8.9 fl (7.4-10.4); Monocytes Absolute Auto 0.8 K/mm3 (0.1-0.6); Monocytes Percent Auto 6.6 % (2.6-8.5); Neutrophils Absolute Auto 9.8 K/mm3 (1.3-6.7); Neutrophils Percent Auto 80.9 % (45.5-73.1); Platelet Count Result 297 k/mm3 (150-375); Red Blood Count 4.36 M/mm3 (4.2-5.4); Red Cell Distribution Width 13.8 % (11.5-14.5); White Blood Count 12.1 K/mm3 (4.5-10.0)
--- NOTE | 2024-09-25 18:10 | LDADM ---
This patient, Hector Sainz, was admitted to Labor/Delivery/Recovery 108 on 09/25/24 at 16:02. Plans for labor, pain management and were discussed with patient. Patient/family oriented to hospital policies and general routines including ID bracelet, bed and alarms, visiting hours, pain management, procedures, bathroom and other care routines, personal items, smoking policy, room service/diet and guest tray routines, infant security routines, and visiting hours. Patient/Family are encouraged to report perceived risks to care and to ask questions if they do not understand what they are told or what they should do. See OBIX for further documentation.
--- OUTSIDE RECORDS SUMMARY | 2024-09-25 18:10 | XMS_ITS | Clinical Summary ---
Author Organization [facility] Address [address] [place] [address] Care Team Providers Care Postal Service Clerk Name Role Phone Princess Mancilla NP Primary Care Provider [phone] Cheri Manzanares MD Unavailable Allergies Active Allergy [...] to complete this topic Insurance Care Teams Postal Service Clerk Relationship Specialty Start Date End Date Princess Mancilla NP [address] [place] [address] PCP - General NURSE PRACTITIONER 11/27/21 Cheri Manzanares MD [address] [place] [address] FAMILY PRACTICE 11/27/21
--- OUTSIDE RECORDS SUMMARY | 2024-09-25 18:10 | XMS_ITS | Data Portability ---
Author Organization [facility] Address [address] [place] [address] [place] [address] Care Team Providers Care Case Supervisor Name Role Phone SOFÍA GISELLE Primary Care Provider Assessment Encounter Date Assessment Date Assessment LastModified by Organization Details LastModified Time 09/21/2024 09/21/2024 Patient is _38__weeks . Discussed plan. Not available 09/21/2024 16:40:11 Plan of Treatment Reminders Order Date Submit Date Provider Last Modified By Organization Details Last Modified Time Details Appointments INDUCTI ON 2024 04:00P M Aaron Falcon CNM Not available Not available Not available U/S OB BPP 2024 02:00P M ULTRASOUND Not available Not available Not available NST 2024 02:30P M NST SCHEDULE Not available Not available Not available OB ROUTINE 2024 03:00P M Aaron Falcon CNM Not available Not available Not available Lab None recorde d. Referral None recorde d. Procedures None recorde d. Surgeries None recorde d. Imaging non-str ess test 2024 025 [address], [place], [address], 09/24/2024 14:56:45 US, obstetr ic, biophys ical profile + non-str ess test 2024 025 [email or web address] [address], [address], [place], [address], 09/22/2024 00:58:34 US, obstetr ic, biophys ical profile + non-str ess test 2024 025 [email or web address] [address], [place], [address], 09/14/2024 18:02:25 Medication Orders None recorde d. Patient TargetsNo targets recorded. Patient InstructionsNo instructions recorded. Reason for Referral None Reported. Results Created Date Observation Date Name Description Value Unit Range Abnormal Flag Note LastModifiedBy Organization Detail LastModifiedTime 08/31/1908/31/2024 CULTU RE: GROUP B STREP SCREE N, REFLE X SUSCE PTIBI LITY result report SEE RESULT S BELOW Test: Cultu re: Group B Strep , Refle x Susce ptibi lity ([facility]/ [facility] ) Speci men Sourc e: Vagin a/Rec bassem Speci men Type: Vagin al/Re ctal Speci men Date: 025 1537 Resul t Date: 2024 1431 Resul t Statu s: Final resul t Abnor mal: No Resul ting Lab: [facility] [address] [facility] [address] Tel: CULTU RE ----- ----- ----- --- No Group B strep isola paulino at 2 days (ian ctive broth enhan cemen t) Not Available [facility] (Lab) [address] [facility], [place], [address], 09/03/2024 15:35:18 09/10/19 25 09/10/2024 CMP/C BC/UR IC ACID WBC 12.2 10'3/ uL 3.5-10 .5 high Not Available [facility] (Lab) [address], [place], [address], 09/11/2024 03:42:43 09/10/19 25 09/10/2024 CMP/C BC/UR IC ACID RBC 4.37 10'6/ uL (based on docume nted legal sex) 3.80-5 .20 Not Available [facility] (Lab) [address] [place], [address], 09/11/2024 03:42:43 09/10/19 25 09/10/2024 CMP/C BC/UR IC ACID HGB 11.3 g/dL (based on docume nted legal sex) 11.6-1 5.4 low Not Available [facility] (Lab) [address], [place], [address], 09/11/2024 03:42:43 09/10/19 25 09/10/2024 CMP/C BC/UR IC ACID HCT 35.0 % (based on docume nted legal sex) 34.0-4 5.0 Not Available [facility] (Lab) [address] [place], [address], 09/11/2024 03:42:43 09/10/19 25 09/10/2024 CMP/C BC/UR IC ACID MCV 80.1 fL 80.0-9 9.0 Not Available [facility] (Lab) [address] [place], [address], 09/11/2024 03:42:43 09/10/19 25 09/10/2024 CMP/C BC/UR IC ACID MCH 25.9 pg 27.0-3 4.0 low Not Available [facility] (Lab) [address] [place], [address], 09/11/2024 03:42:43 09/10/19 25 09/10/2024 CMP/C BC/UR IC ACID MCHC 32.3 g/dL 32.0-3 5.5 Not Available [facility] (Lab) [address] [place], [address], 09/11/2024 03:42:43 09/10/19 25 09/10/2024 CMP/C BC/UR IC ACID RDW 13.0 % 11.0-1 5.0 Not Available [facility] (Lab) [address], [place], [address], 09/11/2024 03:42:43 09/10/19 25 09/10/2024 CMP/C BC/UR IC ACID plt 305 10'3/ uL 150-40 0 Not Available [facility] (Lab) [address], [place], [address], 09/11/2024 03:42:43 09/10/19 25 09/10/2024 CMP/C BC/UR IC ACID MPV 9.2 fL 8.8-12 .1 Not Available [facility] (Lab) [address], [place], [address], 09/11/2024 03:42:43 09/10/19 25 09/10/2024 CMP/C BC/UR IC ACID neutrophils 80.5 % 34.0-7 3.0 high Not Available [facility] (Lab) [address] [place], [address], 09/11/2024 03:42:43 09/10/19 25 09/10/2024 CMP/C BC/UR IC ACID lymphocytes 11.1 % 15.0-5 0.0 low Not Available [facility] (Lab) [address] [place], [address], 09/11/2024 03:42:43 09/10/19 25 09/10/2024 CMP/C BC/UR IC ACID monocytes 7.2 % 1.0-15 .0 Not Available [facility] (Lab) [address] [place], [address], 09/11/2024 03:42:43 09/10/19 25 09/10/2024 CMP/C BC/UR IC ACID eosinophils 0.6 % 0.0-8. 0 Not Available [facility] (Lab) [address] [place], [address], 09/11/2024 03:42:43 09/10/19 25 09/10/2024 CMP/C BC/UR IC ACID basophils 0.2 % 0.0-2. 0 Not Available [facility] (Lab) [address], [place], [address], 09/11/2024 03:42:43 09/10/19 25 09/10/2024 CMP/C BC/UR IC ACID immature granulocytes 0.4 % no define d refere nce range Immat ure Granu locyt es (IG) repre sents autom ated enume ratio n of Metam yeloc ytes, Myelo cytes and Promy elocy gilberto when IG is < 5%. Blast s are not inclu ded in IG and repor paulino separ ately if prese nt. Not Available [facility] (Lab) [address], [place], [address], 09/11/2024 03:42:43 09/10/19 25 09/10/2024 CMP/C BC/UR IC ACID absolute neutrophils 9.9 10'3/ uL 1.5-8. 0 high Not Available [facility] (Lab) [address], [place], [address], 09/11/2024 03:42:43 09/10/19 25 09/10/2024 CMP/C BC/UR IC ACID absolute lymphocytes 1.4 10'3/ uL 1.0-4. 0 Not Available [facility] (Lab) [address], [place], [address], 09/11/2024 03:42:43 09/10/19 25 09/10/2024 CMP/C BC/UR IC ACID absolute monocytes 0.9 10'3/ uL 0.2-1. 0 Not Available [facility] (Lab) [address], [place], [address], 09/11/2024 03:42:43 09/10/19 25 09/10/2024 CMP/C BC/UR IC ACID absolute eosinophils 0.1 10'3/ uL 0.0-0. 6 Not Available [facility] (Lab) [address], [place], [address], 09/11/2024 03:42:43 09/10/19 25 09/10/2024 CMP/C BC/UR IC ACID absolute basophils 0.0 10'3/ uL 0.0-0. 3 Not Available [facility] (Lab) [address], [place], [address], 09/11/2024 03:42:43 09/10/19 25 09/10/2024 CMP/C BC/UR IC ACID absolute immature granulocytes 0.1 10'3/ uL 0.00-0 .10 Refer ence range s for nonbi nary/ inter sex or unspe cifie d gende r patie nts have not been estab lishe d. Pleas e refer [facility] for range s estab lishe d for cisge nder patie nts and evalu ate in the clini anurag sakshi xt of the indiv idual patie nt: https ://gucci araiza book. nm.or g/gen derx Not Available [facility] (Lab) [address], [place], [address], 09/11/2024 03:42:43 09/10/19 25 09/10/2024 CMP/C BC/UR IC ACID uric acid 3.6 mg/dL 2.3-6. 6 Not Available [facility] (Lab) [address] [place], [address], 09/11/2024 03:42:43 09/10/19 25 09/10/2024 CMP/C BC/UR IC ACID sodium 135 mmol/ L 133-14 6 Not Available [facility] (Lab) [address] [place], [address], 09/11/2024 03:42:43 09/10/19 25 09/10/2024 CMP/C BC/UR IC ACID potassium 4.1 mmol/ L 3.5-5. 1 Not Available [facility] (Lab) [address], [place], [address], 09/11/2024 03:42:43 09/10/19 25 09/10/2024 CMP/C BC/UR IC ACID chloride 105 mmol/ L 98-107 Not Available [facility] (Lab) [address], [place], [address], 09/11/2024 03:42:43 09/10/19 25 09/10/2024 CMP/C BC/UR IC ACID carbon dioxide 25 mmol/ L 21-31 Not Available [facility] (Lab) [address], [place], [address], 09/11/2024 03:42:43 09/10/19 25 09/10/2024 CMP/C BC/UR IC ACID anion gap 5 mmol/ L 4-13 Not Available [facility] (Lab) [address], [place], [address], 09/11/2024 03:42:43 09/10/19 25 09/10/2024 CMP/C BC/UR IC ACID blood urea nitrogen 7 mg/dL 7-25 Not Available [facility] (Lab) [address], [place], [address], 09/11/2024 03:42:43 09/10/19 25 09/10/2024 CMP/C BC/UR IC ACID creatinine 0.48 mg/dL 0.60-1 .30 low Not Available [facility] (Lab) [address], [place], [address], 09/11/2024 03:42:43 09/10/19 25 09/10/2024 CMP/C BC/UR IC ACID egfrcr (CKD-epi 2020) >90 mL/mi n/1.7 3_m2 >=60 Not Available [facility] (Lab) [address], [place], [address], 09/11/2024 03:42:43 09/10/19 25 09/10/2024 CMP/C BC/UR IC ACID calcium 9.0 mg/dL 8.3-10 .5 Not Available [facility] (Lab) [address], [place], [address], 09/11/2024 03:42:43 09/10/19 25 09/10/2024 CMP/C BC/UR IC ACID glucose 71 mg/dL 70-100 Not Available [facility] (Lab) [address] [place], [address], 09/11/2024 03:42:43 09/10/19 25 09/10/2024 CMP/C BC/UR IC ACID protein, total 5.9 g/dL 6.4-8. 3 low Not Available [facility] (Lab) [address], [place], [address], 09/11/2024 03:42:43 09/10/19 25 09/10/2024 CMP/C BC/UR IC ACID albumin 3.4 g/dL 3.5-5. 0 low Not Available [facility] (Lab) [address], [place], [address], 09/11/2024 03:42:43 09/10/19 25 09/10/2024 CMP/C BC/UR IC ACID ALT 9 units /L 9-43 Not Available [facility] (Lab) [address] [place], [address], 09/11/2024 03:42:43 09/10/19 25 09/10/2024 CMP/C BC/UR IC ACID alkaline phosphatase 121 units /L 34-104 high Not Available [facility] (Lab) [address] [place], [address], 09/11/2024 03:42:43 09/10/19 25 09/10/2024 CMP/C BC/UR IC ACID AST 13 units /L 13-39 Not Available [facility] (Lab) [address] [place], [address], 09/11/2024 03:42:43 09/10/19 25 09/10/2024 CMP/C BC/UR IC ACID bilirubin, total 0.3 mg/dL 0.2-1. 2 Not Available [facility] (Lab) [address], [place], [address], 09/11/2024 03:42:43 08/14/19 25 08/13/2024 US, obste tric, follo w-up No observ ation record ed. [email or web address] [facility] [address] [place], [address], 08/16/2024 18:33:53 08/24/19 25 08/24/2024 US, obste tric, bioph ysica l profi le + non-s tress test No observ ation record ed. [email or web address] [address], [place], [address], 08/24/2024 17:38:30 08/24/19 25 08/24/2024 US, obste tric, bioph ysica l profi le + non-s tress test No observ ation record ed. [email or web address] [address] [facility], [place], [address], 08/28/2024 09:48:46 08/24/19 25 08/24/2024 non-s tress test No observ ation record ed. [email or web address] [address], [place], [address], 08/24/2024 15:54:18 08/27/19 25 08/27/2024 non-s tress test No observ ation record ed. [email or web address] [address], [place], [address], 08/27/2024 15:50:28 08/29/19 25 08/08/2024 US, obste tric, bioph ysica l profi le + non-s tress test No observ ation record ed. [email or web address] [address], [place], [address], 08/29/2024 18:53:27 08/31/19 25 08/31/2024 US, obste tric, bioph ysica l profi le + non-s tress test No observ ation record ed. [facility] [address], [place], [address], 08/31/2024 18:34:23 08/31/19 25 08/31/2024 US, obste tric, follo w-up No observ ation record ed. [email or web address] [facility], [place], [address], 09/01/2024 13:13:42 08/31/19 25 08/31/2024 non-s tress test No observ ation record ed. [email or web address] [address], [place], [address], 08/31/2024 18:39:24 08/31/19 25 08/31/2024 non-s tress test No observ ation record ed. [email or web address] [address], [place], [address], 08/31/2024 18:41:41 09/06/19 25 09/06/2024 US, doppl er, venou s No observ ation record ed. [email or web address] [facility] [address], [place], [address], 09/11/2024 15:47:15 09/07/19 25 09/07/2024 US, obste tric, follo w-up No observ ation record ed. [facility] [address], [place], [address], 09/07/2024 17:11:10 09/07/19 25 09/07/2024 US, obste tric, bioph ysica l profi le + non-s tress test No observ ation record ed. [email or web address] [address], [place], [address], 09/07/2024 17:11:21 09/07/19 25 09/07/2024 US, jett tric, follo w-up No observ ation record ed. LUCY [address], [place], [address], 09/11/2024 19:14:05 09/07/19 25 09/07/2024 non-s tress test No observ ation record ed. [email or web address] [address], [place], [address], 09/07/2024 16:55:13 09/14/19 25 09/14/2024 US, jett tric, bioph ysica l profi le No observ ation record ed. [email or web address] [address], [place], [address], 09/25/2024 13:57:16 09/14/19 25 09/14/2024 non-s tress test No observ ation record ed. [email or web address] [address] [address], [place], [address], 09/14/2024 18:39:58 09/14/19 25 09/14/2024 US, jett tric, bioph ysica l profi le + non-s tress test No observ ation record ed. [email or web address] [address], [place], [address], 09/14/2024 17:56:50 09/14/19 25 09/14/2024 non-s tress test No observ ation record ed. [email or web address] [address] [address], [place], [address], 09/14/2024 18:26:54 09/21/19 25 09/21/2024 US, obste tric, bioph ysica l profi le + non-s tress test No observ ation record ed. [email or web address] [place] [address], [place], [address], 09/21/2024 18:38:38 09/21/19 25 09/21/2024 US, obste tric, bioph ysica l profi le + non-s tress test No observ ation record ed. [email or web address] [address], [place], [address], 09/21/2024 16:38:04 09/21/19 25 09/21/2024 US, obste tric, follo w-up No observ ation record ed. [email or web address] [address], [place], [address], 09/25/2024 13:57:16 09/21/19 25 09/21/2024 non-s tress test No observ ation record ed. [email or web address] [address] [address], [place], [address], 09/21/2024 17:53:22 09/21/1909/21/2024 non-s tress test No observ ation record ed. [email or web address] [address] [address], [place], [address], 09/21/2024 18:21:01 Result Notes None recorded. Problems Name Problem SNOMED Code Status Onset Date Resolution Date Notes Provider Name and Address Organization Details Recorded Time Herpes simplex 76628553 Active 2023 Maria Esther Escobar [facility] 11:55:25 Hypothyro idism 73656309 Active 2023 Maria Esther Escobar [facility], [facility] 4 11:55:43 Daniel thyroidit is 27431777 Active levothyro xine 25 mcg - Per MFM, labs every 4-6 weeks until 20wks or until stable, the every 2-3 months testing to start @ 32wks Gabi Amaya [facility], [facility] 4 10:09:49 Irritable bowel syndrome 68187491 Active 2023 Maria Esther Escobar [facility], [facility] 4 11:55:59 Bipolar disorder 27324941 Active lamotrigi ne 100mg daily - MFM 05/18/24 1pm u/s & telemed MFM consult Renuka martines [facility] 4 15:26:56 03308111 Active 2023 Maria Esther Escobar [facility], [facility] 4 12:01:33 Bipolar disorder 93649673 Active lamotrigi ne 100mg daily - MFM 05/18/24 1pm u/s & telemed MFM consult Renuka martines [facility], [facility] 4 15:26:55 Genital herpes simplex 48677509 Active valtrex 500 gm bid Aaron Falcon, [address], [place], [address], [facility] 5 16:18:26 Daniel thyroidit is 58908035 Active levothyro xine 25 mcg - Per MFM, labs every 4-6 weeks until 20wks or until stable, the every 2-3 months testing to start @ 32wks Gabi Amaya [facility], [facility] 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 23:08:03 Notes:ADHD Problem Notes None recorded. Procedures Surgical History Date Name Laterality Status Provider Name and Address Organization Details Recorded Time 02/29/2024 Date of Last Pap Smear completed Maria Esther Escobar [facility] 02/29/2024 10:15:59 Imaging Results Imaging Date Name Status LastModified by Organiz ation Details LastModified Time 08/13/2024 US, obstetric, follow-up completed [email or web address] [facility] [address] [place], [address], 08/16/2024 18:33:53 08/24/2024 US, obstetric, biophysical profile + non-stress test completed [place] [address], [place], [address], 08/24/2024 17:38:30 08/24/2024 US, obstetric, biophysical profile + non-stress test completed [email or web address] [address], [place], [address], 08/28/2024 09:48:46 08/24/2024 non-stress test completed emma [address], [place], [address], 08/24/2024 15:54:18 08/27/2024 non-stress test completed [address] [place], [address], 08/27/2024 15:50:28 08/08/2024 US, obstetric, biophysical profile + non-stress test completed [email or web address] [place] [address], [place], [address], 08/29/2024 18:53:27 08/31/2024 US, obstetric, biophysical profile + non-stress test completed [email or web address] [address] [address], [place], [address], 08/31/2024 18:34:23 08/31/2024 US, obstetric, follow-up completed [email or web address] [address], [place], [address], 09/01/2024 13:13:42 08/31/2024 non-stress test completed [address], [place], [address], 08/31/2024 18:39:24 08/31/2024 non-stress test completed [address], [place], [address], 08/31/2024 18:41:41 09/06/2024 US, doppler, venous completed [id number] [facility] [address], [place], [address], 09/11/2024 15:47:15 09/07/2024 US, obstetric, follow-up completed [facility] [address], [place], [address], 09/07/2024 17:11:10 09/07/2024 US, obstetric, biophysical profile + non-stress test completed [facility] [address], [place], [address], 09/07/2024 17:11:21 09/07/2024 US, obstetric, follow-up completed LUCY [address], [place], [address], 09/11/2024 19:14:05 09/07/2024 non-stress test completed [address], [place], [address], 09/07/2024 16:55:13 09/14/2024 US, obstetric, biophysical profile completed [email or web address] [address], [place], [address], 09/25/2024 13:57:16 09/14/2024 non-stress test completed [email or web address] [place] [address] [address], [place], [address], 09/14/2024 18:39:58 09/14/2024 US, obstetric, biophysical profile + non-stress test completed [email or web address] [place] [address], [place], [address], 09/14/2024 17:56:50 09/14/2024 non-stress test completed [email or web address], [place], [address], 09/14/2024 18:26:54 09/21/2024 US, obstetric, biophysical profile + non-stress test completed [email or web address] [address], [place], [address], 09/21/2024 18:38:38 09/21/2024 US, obstetric, biophysical profile + non-stress test completed [email or web address] [address], [place], [address], 09/21/2024 16:38:04 09/21/2024 US, obstetric, follow-up completed zonia [address], [place], [address], 09/25/2024 13:57:16 09/21/2024 non-stress test completed [email or web address] [place] [address] [address], [place], [address], 09/21/2024 17:53:22 09/21/2024 non-stress test completed [email or web address] [place] [address], [place], [address], 09/21/2024 18:21:01 Procedure Notes None recorded. Medical Equipment None Reported. Allergies Allergen ID Allergen Name Allergen Category Reaction Reaction Severity Criticality Documentation Date Start Date Code Code System Note Provider Name and Address Organization Details Recorded Time 07808 sulfameth oxazole / trimethop rim medicatio n Not available Not available Not available 11/27/2020 79394 RxNorm Any Franks [facility] 11:36:51 Medications Name Sig Start [...] Available Not Available Not Available valacyclovi r 500 mg tablet TAKE 1 TABLET BY MOUTH TWICE A DAY active Not Available Not Available No t Available levothyroxi ne 25 mcg tablet TAKE [...] completed Not Available Not Available Not Available mupirocin 2 % topical ointment 12/30 completed [...] Available Not Available Not Available Afluria Qd 2019-20 (36 mos up)(PF)60 mcg (15 mcg x4)/0.5 mL IM syringe 12/30 completed Not Available Not Available Not Available ID NOW COVID-19 Test Kit TEST DIRECTED 05/21 completed Not Available Not Available Not Available Vitals Date Recorded Body height Body mass index (BMI) Body weight Systolic blood pressure Diastolic blood pressure Provider Name and Address Organization Details Last Updated DateTime 09/14/2024 157.48 cm 40.5 kg/m2 074087.6 3 g 121 mm[Hg] 81 mm[Hg] OSCAR Vargas [facility] 5 16:16:12 Date Recorded Body weight Body mass index (BMI) Body height Systolic blood pressure Diastolic blood pressure Provider Name and Address Organization Details Last Updated DateTime 09/14/2024 597524.9 1377 g 40.4 kg/m2 157.48 cm 121 mm[Hg] 81 mm[Hg] Maria Esther Escobar [facility] 5 16:44:38 Date Recorded Body weight Body mass index (BMI) Body height Body height Body mass index (BMI) Body weight Systolic blood pressure Diastolic blood pressure Systolic blood pressure Diastolic blood pressure Provider Name and Address Organization Details Last Updated DateTime 5 796273. 41988 g 41.2 kg/m2 157.48 cm 157.48 cm 41.2 kg/m2 936586. 28 g 122 mm[Hg] 75 mm[Hg] 122 mm[Hg] 75 mm[Hg] Maria Esther Escobar [facility] 5 17:51:55 Social History Question Answer Notes LastModified by Organizat ion Details LastModified Time Tobacco Smoking Status Never Smoker Linn gil, [facility] 12/31/2019 12:41:43 What Is Your Level Of Alcohol Consumption? None Information not available 12/31/2019 If You Are , What Was Your Level Of Alcohol Consumption Prior To ? Occasional [email or web address] Information not available 02/29/2024 Are You Blind Or Do You Have Difficulty Seeing? No Information not available 04/29/2022 What Is Your Level Of Caffeine Consumption? Occasional [email or web address] Information not available 03/21/2024 In The 14 Days Before Symptom Onset, Have You Had Close Contact With A Laboratory-confir med COVID-19 While That Case Was Ill? No [id number] Information not available 02/29/2024 In The 14 Days Before Symptom Onset, Have You Had Close Contact With A Person Who Is Under Investigation For COVID-19 While That Person Was Ill? No [email or web address] Information not available 02/29/2024 Have You Been To An Area Known To Be High Risk For COVID-19? No [email or web address] Information not available 02/29/2024 Are You Deaf [...] Or The Highest Degree You Have Received? [id number] [email or web address] Information not available 03/21/2024 What Is Your Occupation? [employer] [email or web address] Information not available 03/21/2024 Are There Any Guns Present In Your Home? Yes [email or web address] Information not available 03/21/2024 Do You Use Protection During Sex? No [email or web address] Information not available 03/21/2024 Do You Use [...] Anxious, Or Unable To Sleep At Night)? [id number] Information not available 04/29/2022 Do You Use Any Illicit Or Recreational Drugs? No [email or web address] Information not available 03/21/2024 Do You Use Sunscreen Routinely? No [email or web address] Information not available 03/21/2024 Have You Used IV Drugs? No [email or web address] Information not available 03/21/2024 Do You Or [...] Not available 13:15:13 Mother Cyst of ovary [email or web address] Not available 2023 09:24:50 Mother Polycystic ovary syndrome [email or web address] Not available 2023 09:24:50 Mother Arthritis [email or web address] Not availab le 06/13/2024 09:24:50 Mother Sj gren's syndrome [email or web address] Not available 2023 09:24:50 Father Diabetes mellitus [email or web address] Not available 2019 13:16:08 Father Hypercholest erolemia jgumber Not available 2019 13:16:34 Father Hypertensive disorder [email or web address] Not available 2019 13:16:58 Paternal Grandmother Diabetes mellitus [email or web address] Not available 2019 13:16:08 Paternal Grandmother Family history of breast cancer [email or web address] Not available 2023 09:24:50 Paternal Grandfather Diabetes mellitus [email or web address] Not available 2019 13:16:08 Paternal Grandfather Hypercholest erolemia jgumber Not available 2019 13:16:34 Paternal Grandfather Hypertensive disorder [email or web address] Not available 2019 13:16:58 Paternal Grandfather Disorder of cardiovascul ar system [email or web address] Not available 2023 09:24:50 Maternal Grandfather Malignant tumor of lung [email or web address] Not available 2019 13:17:17 Medical History Condition Response Allergies (Food, seasonal, environmental ) N Other Y Drug/Latex Allergies/Reactions Y Blood Transfusion N Breast Cancer N Dermatologic Disorders N Lung Disease N Defects or Inherited Disease N Breast Problem N Gestational Diabetes N Hematologic disorders N Anesthesia Complications N History of STI Y Deep Vein Thrombosis N Polycystic ovary syndrome N Anxiety Disorder Y Autoimmune disease N Arthritis N Polyps N Infertility N Acid Reflux (GERD) N History of abnormal pap N Cancer N Varicosities N Stroke N Neurologic/Epilepsy Y Endometriosis N High Cholesterol N Fibromyalgia N Headaches N Kidney Disease N Heart Problems N Thyroid Problems Y Kidney or Bladder Problems N GI Problems Y Eating Disorder N Anemia [...] ICD10 Code Diagnosis Note [id number] Mary Wright [place] [address] [address] 12/31/2019 12:28:21 12/31/2019 18:14:07 Well child visit [id number] Z00.129 Take Calcium with Vitamin D 1200mg [...] paper copy of today's plan if desired. [id number] Mary Wright [place] [address] [address] 02/06/2020 15:12:53 03/02/2020 14:53:53 Venereal disease screening 918108708 Z11.3 Pt had protected intercours e 1 [...] about it. Sexually t ransmitted infectious disease 0028737 A64 [id number] Mary Ramosmarysol [place] [address] [address] 04/28/2020 11:44:08 04/29/2020 16:50:11 Sexually transmitted infectious disease 9057606 A64 Pt here for repeat bloodwork. Gynecologi c examination 48907162 Z01.419 Take Calcium with Vitamin D 1200mg [...] if desired. Surveillan ce of oral contraception 993464217 Z30.41 Pt happy with ocp. Cycles very light. Consent read and signed. [id number] Mary Wright [place] [address] [address] 11/27/2020 11:05:47 11/28/2020 15:33:33 History of urinary tract infection [id number] 107 Z87.440 Symptoms have resolved and urine dip is normal. Pt to call us if any return of symptoms. Instructed to increase water and decrease caffeine. [id number] Mary Wright [place] [address] [address] 05/21/2021 15:19:23 05/22/2021 23:53:46 Gynecologic examination 88550965 Z01.419 Z11.3 Z11.8 Take Calcium with Vitamin [...] paper copy of today's plan if desired. [id number] Mary Wright [place] [address] [address] 09/09/2021 09:58:01 09/10/2021 16:46:15 Lesion of vulva 193647315 N90.89 A little suspicious for hsv. Wound and HSV cultures collected. Will start valacyclov ir. I did explain that it is hard to know for sure but based on her discomfort it is possible. Discussed other posibiliti es. 30 minutes with patient discussing concerns. Missed period 07680535 N 92.5 Will address further at follow up visit. Cyst of ovary 09148525 N 83.209 Ultrasound scheduled to follow up on ovarian cyst found in the ER. [id number] Paty Jennifer [place] [address] [address] 09/16/2021 09:26:50 09/16/2021 10:10:13 Cyst of left ovary [id number] N83.202 [id number] Mary Wright [place] [address],[place] [address] 09/24/2021 15:06:24 09/25/2021 17:23:26 Lesion of vulva 012251642 N90.89 Completely resolved. Pt will call if any future lesions. Cyst of ovary 20787355 N 83.209 No pain or tenderness . Discussed precaution s with patient. Will plan to return in 4 weeks for follow up ultrasound . Will schedule reminder as pt is not able to schedule today. [id number] Hilary Deleon [place] [address],[place] [address] 10/27/2021 14:20:16 10/27/2021 15:19:16 Cyst of left ovary [id number] N83.292 [id number] Daisy Solano [facility] [address],[place] [address] 04/29/2022 10:40:46 04/29/2022 17:32:21 Vaginitis 21397995 N76.0 Suspect BV/Yeast on examRx sent Counseled on medication R/B's, Most common side effects, & use. All questions were answered to patient satisfacti on. Time spent in visit is a total of 15 mins with at least 50% of visit consisting of counseling and review of plan of care. 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 [id number] [facility] [address],[place] [address] 02/29/2024 09:24:11 02/29/2024 09:51:32 [id number] [facility] [address],[place] [address] 02/29/2024 09:24:32 02/29/2024 10:29:15 Amenorrhea 96257870 N91.2 Gynecologi c examination 51902760 Z01.419 Z11.3 Z11.8 [id number] [facility] [address],[place] [address] 03/21/2024 10:46:36 03/21/2024 11:31:38 screening 834027195 Z36.82 Z3A.12 [id number] Aaron Falcon [facility] [address],[place] [address] 03/21/2024 10:47:50 03/21/2024 14:34:20 Gestation period, 12 weeks 69386069 Z3A.12 continue vitamiblab s today Daniel thyroiditis 21 912455 E06.3 Routine an tenatal care 676716621 Z34.90 Anxiety 43001781 F41.9 [id number] [facility] [place] [address] 04/18/2024 09:46:03 04/18/2024 11:10:35 Routine care 658932177 Z34.90 [id number] [facility] [address] [place] [address] 05/16/2024 09:26:53 05/16/2024 09:54:41 Gestation period, 20 weeks 65613933 Z3A.20 [id number] Aaron Falcon [facility] [place] [address] 06/13/2024 09:24:38 06/13/2024 10:01:47 Gestation period, 24 weeks 127968542 Z3A.24 [id number] [facility] [address] [place] [address] 07/13/2024 09:25:02 07/13/2024 10:17:09 Urinary symptoms 277626042 R39.9 Gestation period, 28 weeks 40410331 Z3A.28 Lesion of vulva 89215614 6 N90.89 [id number] [facility] [place] [address] 07/27/2024 09:39:35 07/27/2024 10:17:24 Gestation period, 30 weeks 38911508 Z3A.30 [id number] Hilary [facility] [address],[place] [address] 08/08/2024 13:51:46 08/08/2024 14:53:00 Hypothyroidism in 612238345 O99.283 Z3A.32 [id number] Maria Esther Escobar [place] [address],[place] [address] 08/08/2024 14:00:37 08/14/2024 03:51:31 Daniel thyroiditis 35466497 E06.3 [id number] [facility] [address],[place] [address] 08/08/2024 14:01:15 08/08/2024 15:29:07 Routine care 501869788 Z34.90 Hypothyroidism 27313524 E03.9 [id number] [facility] [address],[place] [address] 08/24/2024 14:20:48 08/24/2024 15:17:09 Hypothyroidism in 764441588 O99.283 O99.210 Z3A.34 [id number] OSCAR [facility] [address],[place] [address] 08/24/2024 14:21:03 08/24/2024 15:56:55 Daniel thyroiditis 09499440 E06.3 [id number] Aaron Falcon [facility] [address],[place] [address] 08/24/2024 14:23:31 08/27/2024 05:58:11 Gestation period, 34 weeks 52684861 Z3A.34 [id number] OSCAR [facility] [address],[place] [address] 08/27/2024 13:50:24 08/27/2024 16:22:09 Daniel thyroiditis 74145504 E06.3 [id number] [facility] [address],[place] [address] 1 08/31/2024 14:48:06 08/31/2024 15:38:05 Hypothyroidism in 327236363 O99.283 O99.210 Z3A.35 [id number] Maria Esther Shawn [place] [address],[place] [address] 08/31/2024 14:48:27 09/03/2024 11:42:05 Daniel thyroiditis 78183196 E06.3 [id number] Aaron Falcon [facility] [address],[place] [address] 1 08/31/2024 14:48:53 08/31/2024 16:56:12 Gestation period, 35 weeks 35630394 Z3A.35 Herpes simplex 95513636 B00.9 [id number] [facility] [address],[place] [address] 09/07/2024 15:24:32 09/07/2024 16:26:25 Hypothyroidism in 753914291 O99.283 O99.210 Z3A.36 [id number] OSCAR Vargas [place] [address],[place] [address] 09/07/2024 15:24:54 09/07/2024 17:04:43 Maternal obesity complicating , childbirth and the puerperium, antepartum 4652802197 07 O99.210 [id number] Aaron Falcon [facility] [address],[place] [address] 09/07/2024 15:25:11 09/10/2024 09:30:40 Gestation period, 36 weeks 58097657 Z3A.36 [id number] DALE VIZCAINO MD [place] [address],[place] [address] 09/10/2024 13:51:02 09/13/2024 02:29:56 Headache 33717795 R51.9 Gestation period, 37 weeks 19937643 Z3A.37 [id number] [facility] [address],[place] [address] 09/14/2024 14:51:09 09/19/2024 10:07:43 Hypothyroidism in 474971640 O99.283 O99.210 Z3A.37 [id number] Maria Esther Escobar [place] [address],[place] [address] 09/14/2024 14:51:21 09/14/2024 17:01:09 Daniel thyroiditis 92745572 E06.3 [id number] Aaron Falcon [facility] [address],[place] [address] 09/14/2024 14:51:51 09/17/2024 03:52:58 Gestation period, 37 weeks 44853089 Z3A.37 [id number] [facility] [address],[place] [address] 09/21/2024 14:50:36 09/21/2024 15:55:28 Hypothyroidism in 624780402 O99.283 O99.210 Z3A.38 [id number] [facility] [address],[place] [address] 09/21/2024 14:50:55 09/24/2024 14:56:45 Daniel thyroiditis 47859745 E06.3 [id number] Aaron Falcon [facility] [address],[place] [address] 09/21/2024 14:51:58 09/24/2024 02:14:56 Gestation period, 38 weeks 12145420 Z3A.38 Health Concerns Section Related Observation LastModified by Organization Detai ls LastModified Time None Recorded Concern Status LastModified by Organization Details LastModified Time None Recorded Advance Directives Directive None Recorded Payers Encounter Date Sequence Insurance Name Policy Number Policy Trevino Covered Member ID Trevino Member ID Guarantor Name 09/14/2024 1 [place] [id number] Nayana Adair [id number] Nayana Adair 09/21/2024 1 [place] [id number] Nayana Adair [id number] Nayana Adair 09/21/2024 1 [place] [id number] Nayana Adair [id number] Nayana Adair 09/21/2024 1 [place] [id number] Nayana Adair [id number] Nayana Adari OBGyn Episode Ob Episode Information Episode Created Date Number of Fetuses Patient Bloodtype Patient rh Status Prepregnancy Weight lbs Domestic Partner Domestic Partner Phone Father Name Horizontal [employer] Set Up Operator Status 03/21/20 1 O Positive 188 [address] [place] OPEN Fetus Data First Name Last Name Admitted to NICU Weight (g) Sex Living Outcome Pediatric Complications Fetus ID Race Codes Race Delivery Type [id number] Problems Problem Notes 06/15/24 1:00pm u/s only, 1:45pm u/s only, 08/13/24 1345 NST & BPP Problem Name Start Date End Date Resolution Snomed Code Not e Daniel thyroiditis [id number] levothyroxine 2 5 mcg - Per MFM, labs every 4-6 weeks until 20wks or until stable, the every 2-3 monthsAntenatal testing to start @ 32wks Genital herpes simplex 61764655 valtrex 500 gm bid Dilatation of renal pelvis Bipolar disorder 98020179 lawler otrigine 100mg daily - MFM 05/18/24 1pm u/s [...] Weight in lbs Pre/Post Dialysis Refused Weight 189.258951304980 BP Diastolic BP Location Tested BP Systolic [...] Type Weight in lbs Pre/Post Dialysis Refused 190.068278802362 BP Diastolic BP Location Tested BP Systolic [...] Type Weight in lbs Pre/Post Dialysis Refused 196.270156298920 BP Diastolic BP Location Tested BP Systolic [...] Type Weight in lbs Pre/Post Dialysis Refused 202.357693061467 BP Diastolic BP Location Tested BP Systolic [...] Type Weight in lbs Pre/Post Dialysis Refused 209.271530835677 BP Diastolic BP Location Tested BP Systolic BP Type 78 141 Fetus Heart Rate Present Fetus Movement A Yes Comments Patient is having some vagin al pain and pain with urination. cultures collected will call out valtrex and flagyl, may stop valtrex if culture negative. gct today rheumatology nataliya labs will send to us, plan to send to [facility] precautions and education Flowsheet Date 07/27/2024 Linton Score Blood Edema Fundus Height Fundus Units Glucose Ketones Leukocytes Nitrite Labor Signs Protein Cervic Dilation Cervic Effacement Cervic Station Type Weight in lbs Pre/Post Dialysis Refused 214.969787973346 BP Diastolic BP Location Tested BP Systolic [...] Weight in lbs Pre/Post Dialysis Refused Weight 215.277515512966 BP Diastolic BP Location Tested BP Systolic BP Type 81 127 Fetus Heart Rate Present Fetus Movement Comments Flowsheet Date 08/08/2024 Linton Score Blood Edema Fundus Height Fundus Units Glucose Ketones Leukocytes Nitrite Labor Signs Protein Cervic Dilation Cervic Effacement Cervic Station neg none Type Weight in lbs Pre/Post Dialysis Refused 215.945767940350 BP Diastolic BP Location Tested BP Systolic [...] Type Weight in lbs Pre/Post Dialysis Refused 218.758671544561 BP Diastolic BP Location Tested BP Systolic BP Type 80 123 Fetus Heart Rate Present Fetus Movement A Yes Comments Patient is having contractio ns, pressure, dizziness, swelling and nausea. reviewed precautions and education, uterine irritability on nst, soft to palpation, increase fluids over the weekend, cervix closed/long precautions reviewed nst on tuesday discussed with dr. parada +FM bpp 05/03 Flowsheet Date 08/27/2024 Linton Score Blood Edema Fundus Height Fundus [...] Weight in lbs Pre/Post Dialysis Refused Weight 219.993368272981 BP Diastolic BP Location Tested BP Systolic BP Type 74 114 Fetus Heart Rate Present Fetus Movement Comments Flowsheet Date 08/31/2024 Linton Score Blood Edema Fundus Height Fundus Units Glucose Ketones Leukocytes Nitrite Labor Signs Protein Cervic Dilation Cervic Effacement Cervic Station neg trace Type Weight in lbs Pre/Post Dialysis Refused Weight 219.159350465023 BP Diastolic BP Location Tested BP Systolic BP Type 74 114 Fetus Heart Rate Present Fetus Movement A Yes Comments Patient states that is havin g burning in rib area, cramping in back , contractions, pressure with urination, swelling and nausea. reviewed precautions and education +FM BPP 05/03 gbs collected Flowsheet Date 09/07/2024 Linton Score Blood Edema Fundus Height Fundus Units Glucose Ketones Leukocytes Nitrite Labor Signs Protein Cervic Dilation Cervic Effacement Cervic Station Type Weight in lbs Pre/Post Dialysis Refused BP Diastolic BP Location Tested BP Systolic BP Type Fetus Heart Rate Present Fetus Movement Comments Flowsheet Date 09/07/2024 Linton Score Blood Edema Fundus Height Fundus Units Glucose Ketones Leukocytes Nitrite Labor Signs Protein Cervic Dilation Cervic Effacement Cervic Station Type Weight in lbs Pre/Post Dialysis Refused BP Diastolic BP Location Tested BP Systolic BP Type Fetus Heart Rate Present Fetus Movement Comments Flowsheet Date 09/07/2024 Linton Score Blood Edema Fundus Height Fundus Units Glucose Ketones Leukocytes Nitrite Labor Signs Protein Cervic Dilation Cervic Effacement Cervic Station neg trace Type Weight in lbs Pre/Post Dialysis Refused 222.16729541591 BP Diastolic BP Location Tested BP Systolic BP Type 80 136 Fetus Heart Rate Present Fetus Movement A Yes Comments Patient is having contractio ns, swelling, vision, changes, and nausea. labs were wnl at hospital, bp normotensive, discussed 1/2 days at work, if sxs remain will d/c work until after delivery, +FM, education and precautions nst R Flowsheet Date 09/10/2024 Linton Score Blood Edema Fundus Height Fundus Units Glucose Ketones Leukocytes Nitrite Labor Signs Protein Cervic Dilation Cervic Effacement Cervic Station neg trace Type Weight in lbs Pre/Post Dialysis Refused Weight 221.414520856819 BP Diastolic BP Location Tested BP Systolic BP Type 73 L arm 115 sitting Fetus Heart Rate Present A Present Fetus Movement A Yes Comments Patient presents for OB prob rose; report tylenol mildly improved. Had elevated BP at home however has been normotensive throughout . No vision changes, chest pain, dyspnea RUQ pain or epigastric pain. Will order labs today due to previously unverified elevated BP and new symptoms; patient to bring cuff to office on Tuesday to verify acccuracy. Warning signs reviewed. Flowsheet Date 09/14/2024 Linton Score Blood Edema Fundus Height Fundus Units Glucose Ketones Leukocytes Nitrite Labor Signs Protein Cervic Dilation Cervic Effacement Cervic Station Type Weight in lbs Pre/Post Dialysis Refused BP Diastolic BP Location Tested BP Systolic BP Type Fetus Heart Rate Present Fetus Movement Comments Flowsheet Date 09/14/2024 Linton Score Blood Edema Fundus Height Fundus Units Glucose Ketones Leukocytes Nitrite Labor Signs Protein Cervic Dilation Cervic Effacement Cervic Station Type Weight in lbs Pre/Post Dialysis Refused Weight 221.411544945749 BP Diastolic BP Location Tested BP Systolic BP Type 81 L arm 121 sitting Fetus Heart Rate Present Fetus Movement Comments Flowsheet Date 09/14/2024 Linton Score Blood Edema Fundus Height Fundus Units Glucose Ketones Leukocytes Nitrite Labor Signs Protein Cervic Dilation Cervic Effacement Cervic Station neg trace Type Weight in lbs Pre/Post Dialysis Refused 221.272124759706 BP Diastolic BP Location Tested BP Systolic BP Type 81 121 Fetus Heart Rate Present Fetus Movement A Yes Comments Patient is having some contr actions, blurred vision, high blood pressure reading on Tuesday and swelling. bp normotensive, stopped working, precautions and education, cervix soft 0.5 cm, desires 39 week IOL plan for 09/25 at 1600. continue to monitor sxs Flowsheet Date 09/21/2024 Linton Score Blood Edema Fundus Height Fundus Units Glucose Ketones Leukocytes Nitrite Labor Signs Protein Cervic Dilation Cervic Effacement Cervic Station Type Weight in lbs Pre/Post Dialysis Refused BP Diastolic BP Location Tested BP Systolic BP Type Fetus Heart Rate Present Fetus Movement Comments Flowsheet Date 09/21/2024 Linton Score Blood Edema Fundus Height Fundus Units Glucose Ketones Leukocytes Nitrite Labor Signs Protein Cervic Dilation Cervic Effacement Cervic Station Type Weight in lbs Pre/Post Dialysis Refused Weight 225.618329068302 BP Diastolic BP Location Tested BP Systolic BP Type 75 122 Fetus Heart Rate Present Fetus Movement Comments Flowsheet Date 09/21/2024 Linton Score Blood Edema Fundus Height Fundus Units Glucose Ketones Leukocytes Nitrite Labor Signs Protein Cervic Dilation Cervic Effacement Cervic Station neg trace 1cm 40% -3 Type Weight in lbs Pre/Post Dialysis Refused 225.904009472869 BP Diastolic BP Location Tested BP Systolic BP Type 75 122 Fetus Heart Rate Present Fetus Movement A Yes Comments Patient states that is havin g some swelling, pressure, contractions and nausea. 2x2 pocket nellie 6.6, IOL next week, +FM, reviewed us with dr. vizcaino f/u IOL, precautions and education Flowsheet Date 09/25/2024 Linton Score Blood Edema Fundus Height Fundus Units Glucose Ketones Leukocytes Nitrite Labor Signs Protein Cervic Dilation Cervic Effacement Cervic Station Type Weight in lbs Pre/Post Dialysis Refused BP Diastolic BP Location Tested BP Systolic BP Type Fetus Heart Rate Present Fetus Movement Comments Menstrual History Last Menstrual Date Menses Monthly [...]
--- OUTSIDE RECORDS SUMMARY | 2024-09-25 18:10 | XMS_ITS | Referral Summary ---
Author Organization [facility] Address [address] [place] [address] Care Team Providers Care Cigar Wrapper Name Role Phone Katelynn Zheng MD Unavailable Suki Romeo Primary Care Provider Source Comments [facility],non-owned Affiliates and Associated Physician Practices is amultiple site organization consisting of ambulatory clinics and hospital sitesin [place], [place], [place] and [place]. This disclosure is being madepursuant to the Care Everywhere program and may not contain all information available regarding this patient. Last updated 18.[facility] Encounters Date Type Department Care Team Description 08/13/2024 1:45 PM BAKERY DEMONSTRATOR - 08/13/2024 11:59 PM BAKERY DEMONSTRATOR Hospital Encounter [facility] Maternal & Care [address] [place] [id number] Head, Trini Traore MD Discharge Disposition: Home or Self Care 07/13/2024 1:45 PM BAKERY DEMONSTRATOR - 07/13/2024 11:59 PM BAKERY DEMONSTRATOR Hospital Encounter [facility] [address] [place] [phone] Rony Velez MD Discharge Disposition: Home or Self Care from [...] Comments Blood Pressure 130/81 08/13/2024 2:56 PM BAKERY DEMONSTRATOR Pulse 113 08/13/2024 2:56 PM BAKERY DEMONSTRATOR Temperature 36.1 C (97 F) 06/26/2024 2:27 PM BAKERY DEMONSTRATOR Respiratory Rate 20 06/06/2015 12:3 0 PM BAKERY DEMONSTRATOR Oxygen Saturation 97% 06/26/2024 2:27 PM BAKERY DEMONSTRATOR Inhaled Oxygen Concentration 100% 12:00 PM BAKERY DEMONSTRATOR Weight 94.3 kg (207 lb 12.8 oz) 06/26/2024 2:27 PM BAKERY DEMONSTRATOR Height 154.9 cm (5' 1 ) 04/18/2024 [...] Description 12/26/2024 2:40 PM CDT Office Visit [facility] - Rheumatology [address] [place] [address] Katelynn Zheng MD [address] [facility] [address] [place] [id number] Procedures Procedure Name Priority Date/Time Associated Diagnosis Comments SONOGRAM - COMPLETE Routine 08/13/2024 1 :59 PM BAKERY DEMONSTRATOR Encounter for supervision of normal first in second trimester (HCC) Medication exposure during first trimester of (HCC) History of Daniel thyroiditis 28 weeks gestation of (HCC) Encounter for follow-up ultrasound of anatomy ([facility]) Encounter for ultrasound to assess growth (HCC) SONOGRAM - COMPLETE Routine 07/13/2024 1 :51 PM BAKERY DEMONSTRATOR Encounter for supervision of normal first in second trimester ([facility]) Medication exposure during first trimester of ([facility]) History of Daniel thyroiditis 28 weeks gestation of ([facility]) Encounter for follow-up ultrasound of anatomy ([facility]) Encounter for ultrasound to assess growth ([facility]) from Last 3 Months Results * SONOGRAM - COMPLETE (08/13/2024 1:59 PM BAKERY DEMONSTRATOR) Only the most recent of2 resultswithin the time period is included. Linked [...] 4 lb 13 oz EFW by Hadlock ([id number]) overall normal range, but the AC is [...] OB office, as scheduled Coding ====== Procedures 88737: [place] [address]: Biophysical Profile W NST H [facility] PACS Anatomical Region Laterality Modality Other 08/13/2024 1:59 PM BAKERY DEMONSTRATOR R Drew Connell MD [facility] ORDERABLES from Last 3 Months Administered Medications Care Teams Cigar Wrapper Relationship Specialty Start Date End Date Suki Romeo PA [address] [place] [address] PCP - General Physician Application Technical Designer 06/26/24 Katelynn Zheng MD [address] [place] [address] [address] [place] [address] Rheumatology 08/02/23
--- OUTSIDE RECORDS SUMMARY | 2024-09-25 18:10 | XMS_ITS | Clinical Summary ---
Author Organization [facility] Address [address] [place] [address] Care Team Providers Care Agent Spa Desk Name Role Phone Katelynn Zheng MD Unavailable Suki Romeo Primary Care Provider [phone] Source Comments [facility],non-owned Affiliates and Associated Physician Practices is amultiple site organization consisting of ambulatory clinics and hospital sitesin [place], [place], [place] and [place]. This disclosure is being madepursuant to the Care Everywhere program and may not contain all information available regarding this patient. Last updated 18.[facility] Allergies Active Allergy Reactions Criticality Noted Date [...] Department Care Team Description 08/13/2024 1:45 PM CAFETERIA AIDE - 08/13/2024 11:59 PM [facility] Hospital Encounter [facility] Maternal & Care [address] [place] [id number] Head, Trini Traore MD Discharge Disposition: Home or Self Care 07/13/2024 1:45 PM CAFETERIA AIDE - 07/13/2024 11:59 PM [facility] Hospital Encounter [facility] Maternal & Care [address] [place] [id number] Rony Velez MD Discharge Disposition: Home or Self Care from Last 3 Months Family History Medical [...] Comments Blood Pressure 130/81 08/13/2024 2:56 PM CAFETERIA AIDE Pulse 113 08/13/2024 2:56 PM CAFETERIA AIDE Temperature 36.1 C (97 F) 06/26/2024 2:27 PM CAFETERIA AIDE Respiratory Rate 20 06/06/2015 12:3 0 PM CAFETERIA AIDE Oxygen Saturation 97% 06/26/2024 2:27 PM CAFETERIA AIDE Inhaled Oxygen Concentration 100% 12:00 PM CAFETERIA AIDE Weight 94.3 kg (207 lb 12.8 oz) 06/26/2024 2:27 PM CAFETERIA AIDE Height 154.9 cm (5' 1 ) 04/18/2024 1:13 PM CDT Body Mass Index 39.26 04/18/2024 1:13 PM CDT Plan of Treatment Upcoming Encounters Date Type Department Care Team (Late st Contact Info) Description 12/26/2024 2:40 PM CDT Office Visit [facility] - Rheumatology [address] [place] [address] Katelynn Zheng MD [address] [place] [phone] Health Maintenance Due Date Last Done Comments [...] - COMPLETE Routine 08/13/2024 1 :59 PM CAFETERIA AIDE Encounter for supervision of normal first in second trimester (HCC) Medication exposure during first trimester of (HCC) History of Daniel thyroiditis 28 weeks gestation of (HCC) Encounter for follow-up ultrasound of anatomy ([facility]) Encounter for ultrasound to assess growth (HCC) SONOGRAM - COMPLETE Routine 07/13/2024 1 :51 PM CAFETERIA AIDE Encounter for supervision of normal first in second trimester (HCC) Medication exposure during first trimester of (HCC) History of Daniel thyroiditis 28 weeks gestation of (HCC) Encounter for follow-up ultrasound of anatomy ([facility]) Encounter for ultrasound to assess growth (HCC) from Last 3 Months Results * SONOGRAM - COMPLETE (08/13/2024 1:59 PM CAFETERIA AIDE) Only the most recent of2 resultswithin the [...] tone 2: Amniotic fluid volume NST: reactive 10/10 Biophysical profile score Non Stress Test NST [...] 4 lb 13 oz EFW by Hadlock ([id number]) overall normal range, but the AC is [...] OB office, as scheduled Coding ====== Procedures [id number]: [place] [id number]: Biophysical Profile W NST [facility] [employer] PACS Anatomical Region Laterality Modality Other 08/13/2024 1:59 PM CAFETERIA AIDE R Drew Connell MD [facility] ORDERABLES from Last 3 Months Care Teams Agent Spa Desk Relationship Specialty Start Date End Date Suki Romeo PA [facility] [place] [address] PCP - General Physician Library Services Dean 06/26/24 Katelynn Zheng MD [address] [place] [id number] Rheumatology 08/02/23
--- OUTSIDE RECORDS SUMMARY | 2024-09-25 18:11 | XMS_ITS | Patient Health Summary ---
Author Organization [facility] Address [address] [place] [address] Care Team Providers Care Mechanical Engineering Advisor Name Role Phone Katelynn Zheng MD Unavailable Suki Romeo Primary Care Provider [phone] Note from Formerly named [facility],non-owned Affiliates and Associated Physician Practices is amultiple site organization consisting of ambulatory clinics and hospital sitesin [place], [place], [place] and [place]. This disclosure is being madepursuant to the Care Everywhere program and may not contain all information available regarding this patient. Last updated 18.[facility] Allergies * Sulfa Antibiotics(Unknown) * [...] Comments Blood Pressure 130/81 08/13/2024 2:56 PM [employer]OR OF GERMAN Pulse 113 08/13/2024 2:56 PM [employer]OR [employer] GER[employer] Temperature 36.1 C (97 F) 06/26/2024 2:27 PM [employer]OR OF GERMAN Respiratory Rate 20 06/06/2015 12:3 0 PM [employer]OR OF GERMAN Oxygen Saturation 97% 06/26/2024 2:27 PM [employer]ERMAN Inhaled Oxygen Concentration 100% 12:00 PM [employer]ERMAN Weight 94.3 kg (207 lb 12.8 oz) 06/26/2024 2:27 PM [employer]OR OF GERMAN Height 154.9 cm (5' 1 ) 04/18/2024 1:13 PM CDT Body Mass Index 39.26 04/18/2024 1:13 PM CDT Procedures * SONOGRAM - COMPLETE(Performed 08/13/2024) Performed for Encounter for supervision of normal first in second trimester ([facility]), Medication exposure during first trimester of ([facility]), History of Daniel thyroiditis, 28 weeks gestation of ([facility]), Encounter for follow-up ultrasound of anatomy ([facility]), Encounter for ultrasound to assess growth ([facility]) * SONOGRAM - COMPLETE(Performed 07/13/2024) Performed for Encounter for supervision of normal first in second trimester ([facility]), Medication exposure during first trimester of ([facility]), History of Daniel thyroiditis, 28 weeks gestation of ([facility]), Encounter for follow-up ultrasound of anatomy ([facility]), Encounter for ultrasound to assess growth ([facility]) * C-REACTIVE PROTEIN(Performed 06/15/2024) * CBC W AUTO DIFFERENTIAL(Performed 06/15/2024) * ERYTHROCYTE SEDIMENTATION RATE(Performed 06/15/2024) * HEPATIC FUNCTION PANEL(Performed 06/15/2024) * BUN/CREATININE RATIO W/EGFR(Performed 06/15/2024) * SONOGRAM - COMPLETE(Performed 06/15/2024) Performed for Medication exposure during first trimester of ([facility]), History of Daniel thyroiditis, Encounter for supervision of normal first in second trimester ([facility]), 24 weeks gestation of ([facility]) * SONOGRAM - COMPLETE(Performed 05/18/2024) Performed for Medication exposure during first trimester of ([facility]), Encounter for supervision of normal first in second trimester ([facility]), History of Daniel thyroiditis, 20 weeks gestation of ([facility]), Encounter for anatomic survey ([facility]) * HERPES SIMPLEX 1+2 AB IGG SPEC(Performed 04/18/2024) * SONOGRAM - COMPLETE(Performed 04/18/2024) Performed for Medication exposure during first trimester of ([facility]), Encounter for supervision of normal first in second trimester ([facility]), History of Daniel thyroiditis, Bipolar affective disorder, remission status unspecified ([facility]), Cyst of ovary, unspecified laterality, Encounter for ultrasound ([facility]) * RHEUMATOID FACTOR BLOOD QUANTITATIVE(Performed 08/02/2023) Performed [...] * SONOGRAM - COMPLETE (08/13/2024 1:59 PM PROF[employer]OR OF GERMAN) Only the most recent of5 resultswithin the [...] 4 lb 13 oz EFW by Hadlock ([id number]) overall normal range, but the AC is [...] OB office, as scheduled Coding ====== Procedures 59152: [place] [address]: Biophysical Profile W NST [employer] PACS Anatomical Region Laterality Modality Other 08/13/2024 1:59 PM PROFESSOR OF GERMAN R Drew Connell MD [facility] ORDERABLES * (ABNORMAL) BUN/CREATININE RATIO W/EGFR (06/15/2024 2:32 PM PROFESSOR OF GERMAN) BUN 9 7 - 25 mg/dL [facility] Creatinine 0.48(L) 0.50 - 0.96 mg/dL [facility] eGFR by Cystatin C 138 > OR = 60 mL/min/1.7 3m2 [facility] BUN/Creatinine Ratio 19 6 - 22 (calc) [facility] Comment: Test Performed at: [facility] [employer] [address] [employer], [employer] [address] NOHEMI BLAKELY MD 06/15/2024 2:32 PM [employer]OR OF GERMAN 06/15/2024 2:34 PM [employer]OR OF GERMAN Katelynn Zheng MD LAB - CHEMISTRY ORDAshutosh TINSLEY Performing Organization Address [facility] [place] [place] [address] * (ABNORMAL) C-REACTIVE PROTEIN (06/15/2024 2:32 PM PROFESSOR OF GERMAN) Only the most recent of2 resultswithin the time period is included. C-Reactive Protein 18.0(H) <8.0 mg/L [facility] Comment: Test Performed at: [employer], [employer] [address] NOHEMI BLAKELY MD 06/15/2024 2:32 PM [employer]OR [employer] GERMAN 06/15/2024 2:34 PM PROF[employer]OR OF GERMAN Katelynn Zheng MD LAB - CHEMISTRY TANG TINSLEY Performing Organization Address [facility] [place] [address] * (ABNORMAL) ERYTHROCYTE SEDIMENTATION RATE (06/15/2024 2:32 PM PROFESSOR OF GERMAN) Only the most recent of2 resultswithin the time period is included. Erythrocyte Sedimentation Rate Westergren 28(H) < OR = 20 mm/h [facility] Comment: Test Performed at: [employer], [employer] [address] NOHEMI BLAKELY MD 06/15/2024 2:32 PM PROF[employer]OR OF GERMAN 06/15/2024 2:34 PM PROFESSOR OF GERMAN Katelynn Zheng MD LAB - HEMATOLOGY ORD ERABLES Performing Organization Address [facility] Co de Phone Number [address] [address] * CBC WITH DIFFERENTIAL (06/15/2024 2:32 PM PROFESSOR OF GERMAN) Only the most recent of2 resultswithin the time period is included. Pathologist [facility] White Blood Cell Count 8.8 3.8 - [...] 0.2 % [facility] Comment: Test Performed at: [employer] [facility] [address] [place] [address] NOHEMI BLAKELY MD 06/15/2024 2:32 PM PROFESSOR OF GERMAN 06/15/2024 2:34 PM [employer]OR OF GERMAN Katelynn Zheng MD LAB - HEMATOLOGY ORD ERABLES [facility] [address] [place] [address] * HEPATIC FUNCTION PANEL (06/15/2024 2:32 PM PROFESSOR OF GERMAN) Pathologist [facility] Protein Total 6.1 6.1 - 8.1 g/dL [...] 29 U/L [facility] Comment: Test Performed at: [place] [address] NOHEMI BLAKELY MD 06/15/2024 2:32 PM [employer]OR OF GERMAN 06/15/2024 2:34 PM PROFESSOR OF GERMAN Katelynn Zheng MD LAB - CHEMISTRY TANG TINSLEY [facility] [address] [place] [address] * (ABNORMAL) HERPES SIMPLEX 1+2 AB IGG SPEC (04/18/2024 2:39 PM CDT) Pathologist [facility] Herpes Simplex Virus Type 1 52.20(H) index [...] screening. For additional information, please refer to [email or web address] (This link is being provided for informational/ educational purposes only.) Test Performed at: [employer] [facility] [place] [address] NOHEMI BLAKELY MD 04/18/2024 2:39 PM CDT 04/18/2024 2:40 PM CDT Alla Edward MD LAB - SEROLOGY ORDER CHEYANNE [facility] [address] [place] [address] * RHEUMATOID ARTHRITIS 14-3-3 ETA (08/02/2023 2:28 PM PROFESSOR OF GERMAN) 14.3.3 eta Protein <0.20 ng/mL [facility] INSURANCE BILL Comment: Reference Range: < 0.20 Comments: 14-3-3 eta protein is a joint-derived, proinflammatory perinatal technician that is implicated in the joint erosion [...] et al. 14-3-3 eta is a novel perinatal technician associated with the pathogenesis of rheumatoid arthritis and joint damage. Arthritis Res Ther 2014;16:R99. This test was developed and its performance characteristics determined by [employer]. It has not been cleared or approved by the Food and Drug Administration. Blood BLOOD SPECIMEN / Unknown 08/02/2023 2:28 PM PROFESSOR OF GERMAN 08/02/2023 Narrative Resulting Agency Comment Lab Testing performed at: [facility] [address] [place] [id number] Katelynn Zheng MD LAB - CHEMISTRY TANG TINSLEY [facility] INSURANCE BILL [address] [place] [address] * BOBBY COMPREHENSIVE PLUS PROFILE (08/02/2023 2:28 PM PROFESSOR OF GERMAN) Anti-dsDNA Quantitative <1 0 - 9 IU/mL [facility] INSURANCE BILL Comment: Negative <5 Equivocal 5 - 9 Positive >9 EXTENDER Antibody <0.2 0.0 - 0.9 AI [facility] INSURANCE BILL Brody (LISE) Antibody <0.2 0.0 - 0.9 AI [facility] INSURANCE BILL Brody/EXTENDER Antibodies <0.2 0.0 - 0.9 AI [facility] [...] 30% Sm (anti-Brody) SLE 15 - 30% EXTENDER Mixed Connective Tissue Disease 95% (U1 nRNP, SLE 30 - 50% anti-ribonucleoprotein) Polymyositis and/or Dermatomyositis 20% Scl-70 (antiDNA Scleroderma (diffuse) 20 - 35% topoisomerase) Crest 13% Marianne-1 Polymyositis and/or Dermatomyositis 20 - 40% Centromere B Scleroderma - Crest variant 80% Ribosomal P SLE 10 - 20% Blood BLOOD SPECIMEN / Unknown 08/02/2023 2:28 PM PROFESSOR OF GERMAN 08/02/2023 Narrative Resulting Agency Comment Lab Testing performed at: [facility] [place] [facility] [id number] Katelynn Zheng MD LAB - CHEMISTRY ORDE RABLES Performing Organization Address City/[facility]/ZIP Co de Phone Number [facility] INSURANCE BILL [address] [place] [address] * CYCLIC CITRUL PEPTIDE ANTIBODY IGG/IGA (CCP) (08/02/2023 2:28 PM PROFESSOR OF GERMAN) CCP Antibodies IgG/IgA 4 0 - 19 units [facility] INSURANCE BILL Comment: Negative <20 Weak positive 20 - 39 Moderate positive 40 - 59 Strong positive >59 Blood BLOOD SPECIMEN / Unknown 08/02/2023 2:28 PM PROFESSOR OF GERMAN 08/02/2023 Narrative Resulting Agency Comment Lab Testing performed at: [facility] [place] [address] [facility] [id number] Katelynn Zheng MD LAB - SEROLOGY ORDER CHEYANNE [facility] INSURANCE BILL [address] [place] [address] * (ABNORMAL) RHEUMATOID FACTOR BLOOD QUANTITATIVE (08/02/2023 2:28 PM PROFESSOR OF GERMAN) Rheumatoid Factor 27.2(H) <14.0 IU/mL [facility] INSURANCE BILL Blood BLOOD SPECIMEN / Unknown 08/02/2023 2:28 PM PROFESSOR OF GERMAN 08/02/2023 Narrative Resulting Agency Comment Lab Testing performed at: [facility] [address] [facility] [id number] Katelynn Zheng MD LAB - CHEMISTRY TANG TINSLEY Performing Organization Address [facility] de Phone Number [facility] INSURANCE BILL [address] [place] [address] * BOBBY BLOOD SCREEN W/REFLEX TITER (08/02/2023 2:28 PM PROFESSOR OF GERMAN) BOBBY Negative [facility] INSURANCE BILL Comment: Negative <1:80 Borderline 1:80 Positive >1:80 ICAP nomenclature: AC-0 For more information about Hep-2 cell patterns use ANApatterns.org, the official website for the International Consensus on Antinuclear Antibody (BOBBY) Patterns (ICAP). Blood BLOOD SPECIMEN / Unknown 08/02/2023 2:28 PM PROFESSOR OF GERMAN 08/02/2023 Narrative Resulting Agency Comment Lab Testing performed at: [address] [id number] Katelynn Zheng MD LAB - CHEMISTRY TANG TINSLEY Performing Organization Address [facility] de Phone Number [facility] INSURANCE BILL [address] [place] [address] * HLA TYPING B27 (08/02/2023 2:28 PM PROFESSOR OF GERMAN) HLA-B27 Negative [facility] INSURANCE BILL Comment: HLA-B*27 Negative B27 allele interpretation for all loci based on IMGT/HLA database version 3.51.0 This test was developed and its performance characteristics determined by [employer]. It has not been cleared or approved by the Food and Drug Administration. [facility] CLIA ID Number [id number] THis test was performed using Polymerase Chain Reaction (PCR) and Sequence Specific Oligonucleotide Probes (SSOP) technique. Sequence Based Typing (SBT) may be used as a supplemental method when necessary. If you have questions, please call HLA customer service at or email at [email or web address]. Blood BLOOD SPECIMEN / Unknown 08/02/2023 2:28 PM PROFESSOR OF GERMAN 08/02/2023 Narrative Resulting Agency Comment Lab Testing performed at: [facility] ([facility] [employer])[facility] [address] [facility] [id number] Katelynn Zheng MD LAB - CHEMISTRY TANG TINSLEY [facility] INSURANCE BILL [address] [place] [address] * COMPREHENSIVE METABOLIC PANEL (08/02/2023 2:28 PM PROFESSOR OF GERMAN) Glucose 86 70 - 99 mg/dL [facility] [...] BLOOD SPECIMEN / Unknown 08/02/2023 2:28 PM PROFESSOR OF GERMAN 08/02/2023 Narrative Resulting Agency Comment Lab [facility] performed at: [facility] [address] [facility] [id number] Katelynn Zheng MD LAB - CHEMISTRY TANG TINSLEY [facility] INSURANCE BILL [address] [place] [address] * COMPLEMENT C3 C4 PANEL (08/02/2023 2:28 PM PROFESSOR OF GERMAN) Complement C3 131 82 - 167 mg/dL [facility] INSURANCE BILL Complement C4 20 12 - 38 mg/dL [facility] INSURANCE BILL Blood BLOOD SPECIMEN / Unknown 08/02/2023 2:28 PM PROFESSOR OF GERMAN 08/02/2023 Narrative Resulting Agency Comment Lab Testing performed at: [facility] [address] [facility] [id number] Katelynn Zheng MD LAB - CHEMISTRY TANG TINSLEY Performing Organization Address [facility]/ZIP Co de Phone Number [facility] INSURANCE BILL [address] [place] [address] * (ABNORMAL) SKIN TEST PPD - POINT OF CARE (08/06/2019) PPD 0mm(Negati ve) Comment:negative pdd read Other MISCELLANEOUS SAMPLE S / Unknown 08/06/2019 Simon Burns APRN-SPECIFICATION CONSULTANT LAB - POINT OF CA RE ORDERABLES * EEG AWAKE AND ASLEEP (2017 11:39 AM CDT) Narrative [facility] - 2017 11:39 AM CDT Elizabeth Mcdonnell MD 2017 11:[address] [address] CLINICAL NEUROPHYSIOLOGY NAME: Hector Traore Olafjohnny :2005 AD[address]ESS:[address] [place] [address] [facility] #: [id number] DATE OF TEST:01/17/2017 Requesting Physician :Gretta Alan MD FREEZER PERSON: Elizabeth Mcdonnell MD MEDICAL HISTORY: 12 years old female with spell concerning for seizures Vs syncope MEDICATIONS: Zoloft EEG DESCRIPTION: A routine EEG with scalp electrodes was performed during clinical wakefulness and drowsiness using RightScale monitoring system to record EEG data digitally [...] 11:19 AM Lauri Osborne MD NEUROLOGY ORDERABLES [facility] * LAB RESULTS ORDER (06/27/2015 10:50 PM PROFESSOR OF GERMAN) Only the most recent of2 resultswithin the time period is included. Narrative 06/27/2015 10:50 PM PROFESSOR OF GERMAN Ordered by an unspecified provider. Scanned Document LAB - THERAPEUTIC DR PAL MONITORING ORDERABLES * HELICOBACTER PYLORI UREASE (STL) (06/06/2015 11:30 AM PROFESSOR OF GERMAN) Helicobacter pylori Urease Initial Negative Negative 06/07/2015 1:27 PM PROF[employer]OR OF GERMAN [facility] Helicobacter pylori Urease Final Negative Negative 06/07/2015 1:27 PM PROFESSOR OF GERMAN [facility] Microbiology GASTRIC ANTRAL BIOPSY SPECIMEN / Unknown 06/06/2015 11:30 AM [employer]OR OF GERMAN 06/06/2015 11:55 AM PROFESSOR OF GERMAN Edwige Velez MD LAB - MICROBIOLOGY O RDERABLES [facility] [address] * GROSS + MICRO EXAM (STL) (06/06/2015 11:00 AM PROFESSOR OF GERMAN) Case Report Surgical Pathology Report Case: [id number] Authorizing Provider: Edwige Velez MD Collected: 06/06/2015 11:00 AM Ordering Location: ENDOSCOPY SERVICES Received: 06/06/2015 12:52 PM Pathologist: Brent Lennon MD Specimens: A) - Duodenal Biopsy B) - Stomach Biopsy C) - Esophageal Biopsy, DISTAL D) - Esophageal Biopsy, MID E) - Ileum Terminal F) - Colon Biopsy 06/10/2015 8:46 AM [facility] Final Diagnosis A. DUODENUM, BIOPSY: -NO PATHOLOGIC DIAGNOSIS. B. STOMACH, BIOPSY: -NO PATHOLOGIC DIAGNOSIS. C. DISTAL ESOPHAGUS, BIOPSY: -MILD REACTIVE ALTERATIONS. D. MID ESOPHAGUS, BIOPSY: -NO PATHOLOGIC DIAGNOSIS. E. TERMINAL ILEUM, BIOPSY: -NO PATHOLOGIC DIAGNOSIS. F. COLON, BIOPSY: -NO PATHOLOGIC DIAGNOSIS. 06/10/2015 8:46 AM [facility] Clinical History The patient is a 10-year-old girl who underwent upper endoscopy and colonscopy which were found to be normal. 06/10/2015 8:46 AM [facility] Gross Description The specimens [...] toto as F1. (/arm) 06/10/2015 8:46 AM [facility] Microscopic Description A. Duodenum, [...] mucosa are normal. (HR/scs) 06/10/2015 8:46 AM [facility] Pathology/Cytology DUODENAL BIOPSY SPECIMEN / Unknown 06/06/2015 11:00 AM [employer] OF GERMAN 06/06/2015 12:52 PM [employer]OR OF GERMAN Miscellaneous samples (specimen) BIOPSY OF STOMACH / Unknown 06/06/2015 11:00 AM [facility] 06/06/2015 12:52 PM PROFESSOR OF GERMAN Miscellaneous samples (specimen) ESOPHAGEAL BIOPSY SPECIMEN / Unknown 06/06/2015 11:00 AM [employer]ERMAN 06/06/2015 12:52 PM [employer]OR OF GERMAN Miscellaneous samples (specimen) ESOPHAGEAL BIOPSY SPECIMEN / Unknown 06/06/2015 11:34 AM [employer] OF GERMAN 06/06/2015 12:52 PM [employer]OR OF GERMAN Miscellaneous samples (specimen) TERMINAL ILEUM RESECTION SPECIMEN / Unknown 06/06/2015 11:37 AM [employer]ERMAN 06/06/2015 12:52 PM [employer]OR OF GERMAN Miscellaneous samples (specimen) COLONIC BIOPSY SPECIMEN / Unknown 06/06/2015 11:48 AM [employer]OR OF GERMAN 06/06/2015 12:52 PM PROFESSOR OF GERMAN Edwige Velez MD LAB - PATHOLOGY/CYTO LOGY ORDERABLES Performing Organization Address [facility] Co de Phone Number [facility] [address] [place] [address] * HCG URINE QUALITATIVE - POCT (IP) BEAKER (06/06/2015 9:02 AM PROFESSOR OF GERMAN) HCG Qual Urine Negative Negative [facility] QC Verified Yes Yes [facility] PO CT TESTING Urine specimen (specimen) URINE / Unknown 06/06/2015 9:02 AM PROFESSOR OF GERMAN Edwige Velez MD LAB - POINT OF CARE ORDERABLES Performing Organization Address [facility] de Phone Number [facility] [address] [phone] * ENDOSCOPY, COLON, DIAGNOSTIC (06/06/2015 5:59 AM PROFESSOR OF GERMAN) Report Endoscopy POC _ Patient Name: Hecotr Sainz Gender: Female Date of : 2005 Age: 10 Admit Type: Outpatient Attending MD: Edwige Velez, Order #: [id number] _ Procedure: Colonoscopy Indications: Generalized abdominal pain, [...] (with parent). Procedure Code(s): --- Professional --- 73572, Colonoscopy, flexible; with biopsy, single or multiple --- Technical --- 34643, Colonoscopy, flexible; with biopsy, single or multiple Diagnosis Code(s): --- Professional --- R10.84, Generalized abdominal pain K52.9, Noninfective gastroenteritis and colitis, unspecified --- Technical --- R10.84, Generalized abdominal pain K52.9, Noninfective gastroenteritis and colitis, unspecified CPT copyright 2014 [employer]. All rights reserved. The codes documented in this report are preliminary and upon medical billing coder review may be revised to meet current compliance requirements. Dr. Edwige Velez Ediwge Velez, 06/06/2015 11:57 AM This report has been signed electronically. Number of Addenda: 0 Note Initiated On: 06/06/2015 5:59 AM Procedure Date: 06/06/2015 5:59:06 AM This report has been signed electronically. [facility] ENDOSCOPY 06/06/2015 5:59 AM PROFESSOR OF GERMAN Edwige Velez MD GI PROCEDURE ORDERAB LES [facility] ENDOSCOPY [address] [facility] [place] [address] * EGD (06/06/2015 5:58 AM PROFESSOR OF GERMAN) Report Endoscopy POC _ Patient Name: Hector Sainz Gender: Female Date of : 2005 Age: 10 Admit Type: Outpatient Attending MD: Edwige Velez, Order #: [id number] _ Procedure: Upper GI endoscopy Indications: Generalized [...] pathology results. Procedure Code(s): --- Professional --- 73152, Esophagogastrodu odenoscopy, flexible, transoral; with biopsy, single or multiple --- Technical --- 38225, Esophagogastrodu odenoscopy, flexible, transoral; with biopsy, single or multiple Diagnosis Code(s): --- Professional --- R10.84, Generalized abdominal pain R19.7, Diarrhea, unspecified --- Technical --- R10.84, Generalized abdominal pain R19.7, Diarrhea, unspecified CPT copyright 2014 [employer]. All rights reserved. The codes documented in this report are preliminary and upon medical billing coder review may be revised to meet current compliance requirements. Dr. Edwige Velez Edwige Velez, 06/06/2015 11:37 AM This report has been signed electronically. Number of Addenda: 0 Note Initiated On: 06/06/2015 5:58 AM Procedure Date: 06/06/2015 5:58:29 AM This report has been signed electronically. [facility] ENDOSCOPY 06/06/2015 5:58 AM PROFESSOR OF GERMAN Edwige Velez MD GI PROCEDURE ORDERAB LES [facility] ENDOSCOPY [address] [place] [address] * US PELVIS W DOPPLER UTERUS OVARIES (06/02/2015 10:36 AM PROFESSOR OF GERMAN) Anatomical Region Laterality Modality Ultrasound 06/02/2015 10:5 6 AM [employer]OR OF GERMAN Impressions 06/02/2015 10:57 AM [employer]OR OF GERMAN Normal pelvic sonogram. Normal pelvic Doppler. Narrative 06/02/2015 10:57 AM [employer]OR OF GERMAN Pelvic sonogram transabdominal with Doppler History: Abdominal [...] * US ABDOMEN COMPLETE (06/02/2015 9:35 AM PROFESSOR OF GERMAN) Anatomical Region Laterality Modality Abdomen Ultrasound 06/02/2015 9:53 AM [employer]OR OF GERMAN Impressions 06/02/2015 9:54 AM [employer]OR OF GERMAN Normal abdominal sonogram. Narrative 06/02/2015 9:54 AM PROF[employer]OR OF GERMAN Abdominal sonogram History: Abdominal pain. The hepatobiliary system, spleen, kidneys, pancreas, and visible retroperitoneal great vessels are normal. Procedure Note Shannon Peters MD - 06/02/2015 Abdominal sonogram History: Abdominal pain. The hepatobiliary system, spleen, kidneys, pancreas, and visible retroperitoneal great vessels are normal. IMPRESSION Normal abdominal sonogram. Edwige Velez MD US ORDERABLES * URINALYSIS ROUTINE AUTO (09/26/2009 3:20 PM PROFESSOR OF GERMAN) Color UA YELLOW [facility] Character UA CLEAR [facility] Specific [place] UA 1.010 1.003 - 1.[address] [facility] pH UA 6.5 5.0 - 8.[address] [facility] Protein UA NEGATIVE Negative [facility] Glucose UA NEGATIVE Negative gm/dl [facility] Ketone UA NEGATIVE Negative [facility] Blood UA TRACE-INTACT Negative [facility] Bilirubin UA NEGATIVE Negative [facility] Reducing Substances UA NEGATIVE Negative % [facility] Epithelial Cell UA rare /HPF [facility] Crystals UA Small Amorphous [facility] Leukocyte UA NEGATIVE [facility] Nitrite UA NEGATIVE [facility] Urobilinogen UA 0.2 <=1.0 EU/dl [facility] URINE / Unknown 09/26/2009 3 :20 PM PROFESSOR OF GERMAN Sandro Heaton MD LAB - URINALYSIS OR DERABLES [facility] * CULTURE URINE (09/26/2009 3:20 PM PROFESSOR OF GERMAN) Report [facility] Comment: Final - GRAM STAIN No organisms seen CULTURE NO GROWTH (<1000 CFU/ml) URINE SPECIMEN OBTAINED BY CLEAN CATCH PROCEDURE / Unknown 09/26/2009 3:20 PM [employer]OR OF GERMAN Sandro Heaton MD LAB - MICROBIOLOGY ORDERABLES [facility] Care Teams Mechanical Engineering Advisor Relationship Specialty Start Date End Date Suki Romeo PA [address] [place] [id number] PCP - General Physician Occupational Health Manager 06/26/24 Katelynn Zheng MD [address] [place] [id number] Rheumatology 08/02/23
[2024-09-25 18:59] LABS: Syphilis IgG/IgM Antibody Negative (Negative)
[2024-09-25 19:01] LABS: HIV 1/2 Ab P24 Ag Result Negative (Negative)
[2024-09-25] MEDS: miSOPROStol 25 MCG TABLET 50 MCG BUCCAL (19:40)
--- NOTE | 2024-09-25 20:56 | WPDANESEPP ---
Anes - Eval Pre Procedure Procedure: Labor Pain Management Date/Time: 09/25/24 20:56 Surgeon: Joaquim Preop Diagnosis: Pain during labor Pre Op Diagnosis: Induction of Labor Patient Data Age: 19 Gender: F Height: 1.55 m Weight: 102 kg Last Vital Signs Pulse 115 H 09/25/24 20:54 BP 127/62 09/25/24 20:54 Pulse Ox 100 09/25/24 20:55 O2 Del Method Room Air 09/25/24 18:10 Allergies Allergy/AdvReac Type Severity Reaction Status Date / Time Sulfa (Sulfonamide Allergy Mild Unknown Verified 09/25/24 19:40 Antibiotics) sulfamethoxazole Allergy Mild Unknown Verified 09/25/24 19:40 trimethoprim (From ) Allergy Hives Verified 09/25/24 19:40 Home Medications ?Medication ?Instructions ?Recorded ?Confirmed ?Type lamotrigine 100 mg tablet 100 mg PO DAILY 10/28/22 09/25/24 History levothyroxine 25 mcg capsule 25 mcg PO DAILY 10/28/22 09/25/24 History albuterol sulfate 90 mcg/actuation 1 inh inhalation Q4H #8.5 grams 07/31/24 Rx aerosol inhaler valacyclovir 500 mg tablet 500 mg PO BID 09/05/24 09/25/24 History Laboratory Tests 09/25/24 09/25/24 17:51 17:52 WBC 12.1 H K/mm3 (4.5-10.0) RBC 4.36 M/mm3 (4.2-5.4) Hgb 11.4 L g/dL (12.0-15.0) Hct 34.3 L % (37.0-47.0) MCV 78.7 L fl (80-100) MCH 26.1 pg (26-34) MCHC 33.2 g/dl (32-36) RDW 13.8 % (11.5-14.5) Plt Count 297 k/mm3 (150-375) MPV 8.9 fl (7.4-10.4) Immature Gran % (Auto) 0.6 H % (0-0.5) Neut % (Auto) 80.9 H % (45.5-73.1) Lymph % (Auto) 11.1 L % (18.3-44.2) Sac % (Auto) 6.6 % (2.6-8.5) Eos % (Auto) 0.6 % (0-4.4) Baso % (Auto) 0.2 % (0.2-1.2) Lymph # (Auto) 1.34 K/mm3 (0.9-3.2) Sac # (Auto) 0.8 H K/mm3 (0.1-0.6) Eos # (Auto) 0.1 K/mm3 (0-0.3) Baso # (Auto) 0.0 K/mm3 (0.0-0.1) Abs Immat Gran (auto) 0.07 H K/mm3 (0.00-0.031) Absolute Neuts (auto) 9.8 H K/mm3 (1.3-6.7) Absolute Nucleated RBC 0.000 K/mm3 (0.0-0.012) Nucleated RBC % 0.0 % (0.0-0.2) Syphilis IgG/IgM Ab Negative (Negative) HIV 1&2 Ab/P24 Ag 4thGn Negative (Negative) Blood Type O Positive Antibody Screen Negative Patient hx anesthesia problems: none Family hx anesthesia problems: none Results Review: All pre-operative results and documents have been reviewed as part of the pre-operative evaluation. FOR[facility]LY [facility], LATER [facility] Past Medical History Medical History Bipolar 2 disorder Hyperlipidemia Seizures Chronic headaches Anxiety Anemia Daniel's disease Psoriasis Rafael-Danlos syndrome Family History Family History Father Diabetes mellitus Hypertension OCD (obsessive compulsive disorder) Mother Psoriasis Pernicious anemia Sibling Heart disease Psoriasis Grandparent Breast cancer Hypertension Thyroid disorder Grandparent Small cell lung cancer Hypertension Cerebrovascular accident Heart disease Social History Social History Smoking status: Never smoker Tobacco type: e-cigarettes/vaping Additional smoking assessment comments: x 3 years Substance use: never Substance use type: does not use Do You Feel Safe in your Home?: Yes Lack of Transportation: No Lack of Food: Never True Current Housing: I Have Housing Concerned About Future Housing: No Difficulty Paying Gas/Electric Bills: No Difficulty Paying for Meds: No Currently Unemployed: No Education: High School Diploma/GED Difficulty w/ Childcare or Family Care: No Living arrangements: with family Gender identity (if verbalized by the patient): Female Agree to blood products: Yes Exam Day of Procedure 09/25/24 20:56
--- NOTE | 2024-09-25 21:02 | P.HP_ITS ---
H&P: HPI History of Present Illness Date/Time: 09/25/24 21:02 Chief Complaint: pt is here for IOL, hx bipolar disorder, hashimotos, herpes simplex, cytotec given, 6 minute deceleration noted, CNM at bs, DR. March called in. SVE /-2 AROM clear fluid, IUPC placed, another 5+ minute decl noted, discussed with pt and dr. march, proceed to section PMFSH Past Medical History Medical History Bipolar 2 disorder Hyperlipidemia Seizures Chronic headaches Anxiety Anemia Daniel's disease Psoriasis Rafael-Danlos syndrome Family History Family History Father Diabetes mellitus Hypertension OCD (obsessive compulsive disorder) Mother Psoriasis Pernicious anemia Sibling Heart disease Psoriasis Grandparent Breast cancer Hypertension Thyroid disorder Grandparent Small cell lung cancer Hypertension Cerebrovascular accident Heart disease Social History Social History Smoking status: Never smoker Tobacco type: e-cigarettes/vaping Additional smoking assessment comments: x 3 years Substance use: never Substance use type: does not use Do You Feel Safe in your Home?: Yes Lack of Transportation: No Lack of Food: Never True Current Housing: I Have Housing Concerned About Future Housing: No Difficulty Paying Gas/Electric Bills: No Difficulty Paying for Meds: No Currently Unemployed: No Education: High School Diploma/GED Difficulty w/ Childcare or Family Care: No Living arrangements: with family Gender identity (if verbalized by the patient): Female Agree to blood products: Yes Meds Home Medications and Allergies Home Medications ?Medication ?Instructions ?Recorded ?Confirmed ?Type lamotrigine 100 mg tablet 100 mg PO DAILY 10/28/22 09/25/24 History levothyroxine 25 mcg capsule 25 mcg PO DAILY 10/28/22 09/25/24 History albuterol sulfate 90 mcg/actuation 1 inh inhalation Q4H #8.5 grams 07/31/24 Rx aerosol inhaler valacyclovir 500 mg tablet 500 mg PO BID 09/05/24 09/25/24 History Allergies Allergy/AdvReac Type Severity Reaction Status Date / Time Sulfa (Sulfonamide Allergy Mild Unknown Verified 09/25/24 19:40 Antibiotics) sulfamethoxazole Allergy Mild Unknown Verified 09/25/24 19:40 trimethoprim (From [facility]) Allergy Hives Verified 09/25/24 19:40 Vital Signs Vital Signs - 24 hr 09/25/24 17:37 09/25/24 17:38 09/25/24 17:41 Pulse Rate Blood Pressure Pulse Oximetry 98 100 96 Oxygen Delivery 09/25/24 17:46 09/25/24 17:51 09/25/24 17:56 Pulse Rate Blood Pressure Pulse Oximetry 99 99 98 Oxygen Delivery 09/25/24 17:58 09/25/24 18:00 09/25/24 18:01 Pulse Rate 102 H 108 H Blood Pressure 122/75 120/78 Pulse Oximetry 98 Oxygen Delivery 09/25/24 18:06 09/25/24 18:10 09/25/24 18:11 Pulse Rate Blood Pressure Pulse Oximetry 98 99 Oxygen Delivery Room Air 09/25/24 18:15 09/25/24 18:16 09/25/24 18:24 Pulse Rate 97 Blood Pressure 123/65 Pulse Oximetry 98 94 Oxygen Delivery 09/25/24 18:27 09/25/24 18:30 09/25/24 18:32 Pulse Rate 118 H Blood Pressure 112/91 H Pulse Oximetry 98 97 Oxygen Delivery 09/25/24 18:37 09/25/24 18:38 09/25/24 18:43 Pulse Rate Blood Pressure Pulse Oximetry 97 99 97 Oxygen Delivery 09/25/24 18:45 09/25/24 18:48 09/25/24 18:53 Pulse Rate 106 H Blood Pressure 117/76 Pulse Oximetry 98 97 Oxygen Delivery 09/25/24 18:58 09/25/24 19:02 09/25/24 19:03 Pulse Rate 95 Blood Pressure 124/71 Pulse Oximetry 98 99 Oxygen Delivery 09/25/24 19:07 09/25/24 19:12 09/25/24 19:15 Pulse Rate 97 Blood Pressure 118/58 L Pulse Oximetry 99 97 Oxygen Delivery 09/25/24 19:17 09/25/24 19:19 09/25/24 19:21 Pulse Rate Blood Pressure Pulse Oximetry 97 98 98 Oxygen Delivery 09/25/24 19:26 09/25/24 19:30 09/25/24 19:31 Pulse Rate 97 Blood Pressure 107/58 L Pulse Oximetry 97 97 Oxygen Delivery 09/25/24 19:36 09/25/24 19:41 09/25/24 19:46 Pulse Rate Blood Pressure Pulse Oximetry 98 99 98 Oxygen Delivery 09/25/24 19:51 09/25/24 19:56 09/25/24 20:01 Pulse Rate Blood Pressure Pulse Oximetry 98 98 100 Oxygen Delivery 09/25/24 20:04 09/25/24 20:04 09/25/24 20:09 Pulse Rate Blood Pressure Pulse Oximetry 81 L 89 L 100 Oxygen Delivery 09/25/24 20:11 09/25/24 20:16 09/25/24 20:21 Pulse Rate Blood Pressure Pulse Oximetry 96 97 100 Oxygen Delivery 09/25/24 20:26 09/25/24 20:30 09/25/24 20:31 Pulse Rate 114 H Blood Pressure 127/71 Pulse Oximetry 98 99 Oxygen Delivery 09/25/24 20:36 09/25/24 20:41 09/25/24 20:42 Pulse Rate 138 H Blood Pressure 131/93 H Pulse Oximetry 100 100 Oxygen Delivery 09/25/24 20:43 09/25/24 20:45 09/25/24 20:48 Pulse Rate 125 H 108 H 110 H Blood Pressure 146/85 H 125/57 L 114/92 H Pulse Oximetry 97 100 Oxygen Delivery 09/25/24 20:50 09/25/24 20:51 09/25/24 20:54 Pulse Rate 124 H 115 H Blood Pressure 136/75 127/62 Pulse Oximetry 100 Oxygen Delivery 09/25/24 20:55 09/25/24 20:59 09/25/24 21:01 Pulse Rate 158 H 207 H Blood Pressure 125/73 113/55 L Pulse Oximetry 100 Oxygen Delivery Exam Const: General: cooperative and healthy appearing Chest: Chest palpation & inspection: normal inspection of the chest Resp: Effort & Inspection: normal respiratory effort Auscultation: clear to auscultation bilaterally Cardio: Rate: regular rate Rhythm: regular rhythm GI: Other: soft gravid : Other: SVE 80/-2 Back/Spine/Pelvis: Back: no CVA tenderness Skin: General skin exam: normal color Neuro: General: oriented to person, oriented to place, oriented to time, patient oriented x3, gait normal and moves all extremities Extrem: General: normal to inspection Psych: Appearance: grossly normal H&P: Results Labs Labs: Short CBC 09/25/24 Range/Units 17:52 WBC 12.1 H (4.5-10.0) K/mm3 Hgb 11.4 L (12.0-15.0) g/dL Hct 34.3 L (37.0-47.0) % Plt Count 297 (150-375) k/mm3 Assessment and Plan Assessment and plan (1) intolerance to labor, delivered, current hospitalization: Code(s): O77.9 - Labor and delivery complicated by stress, unspecified Status: Acute Plan intolerance to labor proceed with section
--- NOTE | 2024-09-25 21:16 | WPDHPUPDATE1 ---
History and Physical Update Update Date/Time: 09/25/24 21:16 History and Physical has been reviewed, including an updated exam of the patient. Recurrent prolonged decelerations on cytotec. Discussed risks of PCS vs trying to continue labor which I do not recommend at this time due to intolerance in early labor. Risks and benefits of PCS were discussed. Patient voices understanding. Will proceed with primary c section. Risks, benefits, and alternatives have been discussed and questions answered. Patient agrees to proceed with procedure.
[2024-09-25] MEDS: ONDANSETRON INJ 4 MG/2 ML VIAL IV PUSH (21:20)
[2024-09-25] MEDS: FAMOTIDINE 20 MG/2 ML VIAL (21:20)
--- NOTE | 2024-09-25 21:59 | W.PM.OBCSD ---
OB - Delivery Note Procedure Delivery date: 09/25/24 Pre-op diagnosis: Decelerations (recurrent prolonged) Post-op Diagnosis: Same Induction method: Per Misoprostol Protocol Delivery augmentation: Rupture of Membranes Delivery monitor: External FHT Prior to decision for section, ACOG/SMFM labor guidelines were considered and discussed with the patient and staff. Decision made to proceed with the section.: Yes Procedure Performed: Primary Primary branch: low cervical, transverse Surgeon: Emery March MD Anesthesia type: Epidural Description of Procedure/Findings: The patient was taken to the operating room where she was placed in the dorsal supine position with a leftward tilt. heart tones were in a prolonged deceleration and the decision was made to proceed with emergent delivery. She was prepped and draped in the normal sterile fashion, and anesthesia was checked to be adequate. A Pfannenstiel skin incision was made with the scalpel and carried through to the underlying layer of fascia with the scalpel. The fascia was incised in the midline and the incision extended laterally bluntly. The underlying rectus muscles dissected off bluntly. The rectus muscles were then in the midline, and the peritoneum entered bluntly. The peritoneal incision was extended superiorly and inferiorly with good visualization of the bladder. With the bladder blade providing retraction and visualization, the lower uterine segment was incised in a transverse fashion with the scalpel. The uterine incision was then extended laterally. The bladder blade was removed and the 's head was elevated and delivered atraumatically. The remainder of the was then delivered without difficulty. The umbilical cord was doubly clamped and cut. The infant was then handed off to the waiting nursing staff. Specimens then obtained as listed below. The placenta was then removed manually and the uterus was exteriorized and cleared of all clots and debris. The uterine incision was repaired with 0-Monocryl in a running, interlocked fashion. The posterior cul-de-sac was manually cleared of all clots and debris. The uterus was returned to the abdomen. The gutters were then manually cleared of all clots and debris.? The uterine incision was visualized to be hemostatic. The fascia was reapproximated with 0-Vicryl in a running fashion. The subcutaneous tissues were irrigated with warmed normal saline, and hemostasis was assured. The subcutaneous tissue was greater than 2 cm and closed in a running fashion with 2-0 plain gut suture.? The skin was closed with 4-0 monocryl in a running subcuticular stitch. Fundal pressure was applied to express remaining intrauterine clots and debris. The patient tolerated the procedure well. Sponge, lap, and needle counts were correct times three per nursing. The patient was taken to the recovery room in stable condition. Specimen: Yes Estimated Blood Loss: 380 Pathology: Yes Complications: No immediate complications Condition: Stable Disposition: Floor [place] Baby Date of : 09/25/24 Time of : 21:27 Gestational Age by Date: 39 Infant gender: Male Weight (pounds): 7 Weight (ounces): 8 presentation: vertex Placenta delivery description: Expressed Cord Vessel Description: 3 Vessels, Nuchal Cord and Reduced
[2024-09-25] MEDS: OXYTOCIN 30 UNITS/NS 500 ML 30 UNITS/500 ML BAG 125 UNITS IV CONT (23:53)
[2024-09-26] VITALS (11 sets, daily range): BP systolic 103–121; BP diastolic 48–76; PULSE 72–136; RESP 13–16; TEMP 36.6–37.1; O2SAT 97–100
--- NOTE | 2024-09-26 02:23 | OBPPTRN ---
Addendum entered by Arcelia oCnnelly RN 09/26/24 02:25: wrong time entered, patient arrived on unit at 0022. Original Note: Patient transferred to post room #281 via stretcher. Support person present. Oriented to unit, room, information board, rooming in, admission packet and security measures. Patient verbalizes understanding.
[2024-09-26] MEDS: ACETAMINOPHEN 325 MG TABLET 650 MG PO ×4 (04:23→22:20)
[2024-09-26] MEDS: KETOROLAC 15 MG/ML VIAL (*BKC) IV PUSH ×3 (04:23→16:21)
[2024-09-26 04:44] LABS: Basophils Percent Auto 0.2 % (0.2-1.2); Hematocrit 35.9 % (37.0-47.0); Hemoglobin 11.6 g/dL (12.0-15.0); Immature Granulocyte Absolute 0.21 K/mm3 (0.00-0.031); Immature Granulocyte Percent A 0.9 % (0-0.5); Lymphocytes Absolute Auto 0.75 K/mm3 (0.9-3.2); Lymphocytes Percent Auto 3.1 % (18.3-44.2); Mean Corpuscular HGB Conc 32.3 g/dl (32-36); Mean Corpuscular Volume 80.5 fl (80-100); Mean Platelet Volume 8.8 fl (7.4-10.4); Monocytes Absolute Auto 0.5 K/mm3 (0.1-0.6); Monocytes Percent Auto 2.1 % (2.6-8.5); Neutrophils Absolute Auto 22.8 K/mm3 (1.3-6.7); Neutrophils Percent Auto 93.7 % (45.5-73.1); Platelet Count Result 282 k/mm3 (150-375); Red Blood Count 4.46 M/mm3 (4.2-5.4); Red Cell Distribution Width 13.7 % (11.5-14.5); White Blood Count 24.3 K/mm3 (4.5-10.0)
[2024-09-26] MEDS: ceFAZolin 2 GM/D5W 50 ML 2 GM/50 ML BAG IVPB (05:31)
[2024-09-26] MEDS: LEVOTHYROXINE SODIUM 25 MCG TABLET PO (07:37)
--- NOTE | 2024-09-26 07:51 | P.PNOB_ITS ---
OB - PN: Subj Subjective Date/time seen: 09/26/24 07:51 Interval history: pp day 1 c/s, sitting in chair, voiding without difficulty OB - PN: Obj Data Labs 09/26/24 04:18 Labs: Laboratory Results - last 24 hr 09/25/24 09/25/24 09/26/24 17:51 17:52 04:18 WBC 12.1 H 24.3 H RBC 4.36 4.46 Hgb 11.4 L 11.6 L Hct 34.3 L 35.9 L MCV 78.7 L 80.5 MCH 26.1 26.0 MCHC 33.2 32.3 RDW 13.8 13.7 Plt Count 297 282 MPV 8.9 8.8 Immature Gran % (Auto) 0.6 H 0.9 H Neut % (Auto) 80.9 H 93.7 H Lymph % (Auto) 11.1 L 3.1 L [place] % (Auto) 6.6 2.1 L Eos % (Auto) 0.6 0.0 Baso % (Auto) 0.2 0.2 Lymph # (Auto) 1.34 0.75 L [place] # (Auto) 0.8 H 0.5 Eos # (Auto) 0.1 0.0 Baso # (Auto) 0.0 0.0 Abs Immat Gran (auto) 0.07 H 0.21 H Absolute Neuts (auto) 9.8 H 22.8 H Absolute Nucleated RBC 0.000 0.000 Nucleated RBC % 0.0 0.0 Syphilis IgG/IgM Ab Negative HIV 1&2 Ab/P24 Ag 4thGn Negative Blood Type O Positive Antibody Screen Negative Imaging Radiologist's impression: Impressions Abdomen X-Ray 09/25/24 22:24 IMPRESSION: No radiopaque foreign body is visualized on the submitted image OB - PN A/P Plan day: 1 Plan: routine care Time Spent With Patient Time: Total time spent is greater than 50% in coordination of care (as documented) at patient's floor/unit and/or counseling patient: Review of Systems 2 Review of Systems: All systems reviewed & are unremarkable except as noted in HPI and below Exam 2 Const: General: cooperative and healthy appearing Resp: Effort & Inspection: normal respiratory effort Cardio: Rate: regular rate GI: Other: Incision:CDI
[2024-09-26] MEDS: SIMETHICONE 80 MG TAB.CHEW PO ×3 (09:54→16:20)
[2024-09-26] MEDS: MULTIVIT/MIN/PREN/FOL AC/IRON TABLET 1 TAB PO (09:55)
[2024-09-26] MEDS: LIDOCAINE 5% PATCH 1 PATCH TRANSDERM (09:55)
[2024-09-26] MEDS: DOCUSATE SODIUM 100 MG CAPSULE (13:06)
[2024-09-26] MEDS: HYDROcodone/acetaminophen (*CRX) 5-325 MG TABLET 1 TAB PO (13:06)
--- NOTE | 2024-09-26 14:08 | WPDANLDPN2 ---
Anes-Prog Note L&D Date/Time: 09/26/24 14:08 Comfortable throughout: section Neuraxial method: spinal Epidural/Spinal procedure site: clean & non-tender Neuro status: Neuro function grossly intact. Respiratory status: normal Airway patency: baseline Mental status: baseline Post-Op hydration status: normal Vital Signs: Last Vital Signs Temp 36.6 C 09/26/24 13:03 Pulse 72 09/26/24 13:03 Resp 16 09/26/24 13:03 BP 106/48 L 09/26/24 13:03 Pulse Ox 98 09/26/24 13:03 O2 Del Method Room Air 09/26/24 01:30 Pain score (VAS): 08/03 I/O: Intake & Output 09/25/24 09/26/24 09/26/24 23:59 07:59 15:59 Intake Total 240 Output Total 440 1700 400 Balance -440 -1700 -160 Post-procedural complaints: none Patient feedback: Patient satisfied with anesthetic care.
--- NOTE | 2024-09-26 14:09 | WPDANLDNPN2 ---
Anes-Prog Note L&D-Neuraxial Date/Time: 09/26/24 14:09 Neuraxial medications: intrathecal PF morphine Opiod-related complaints: none Patient feedback: Patient satisfied with post-operative pain management.
--- NOTE | 2024-09-26 14:49 | PC.NURSE ---
Board updated with contact information for RN, handouts provided for basic care. Parents are sleeping at this time and will call this RN for next feeding if assistance is needed. Discussed that would like to observe one feeding before discharge.
--- NOTE | 2024-09-26 15:35 | PC.NURSE ---
Called to room to assist with latching infant. Mother works well with but infant was sleepy. After little stimulation, infant latched to the left breast in football position. Minimum assistance needed.
[2024-09-26] MEDS: IBUPROFEN 600 MG TABLET PO (22:19)
[2024-09-26] MEDS: lamoTRIgine 100 MG TABLET PO (22:20)
[2024-09-27] MEDS: HYDROcodone/acetaminophen (*CRX) 5-325 MG TABLET 1 TAB PO ×3 (01:29→16:16)
[2024-09-27 04:30] VITALS: BP 103/65; PULSE 85; RESP 16; TEMP 36.5; O2SAT 100
[2024-09-27] MEDS: ACETAMINOPHEN 325 MG TABLET 650 MG PO ×2 (07:09→13:05)
[2024-09-27] MEDS: SIMETHICONE 80 MG TAB.CHEW PO ×3 (07:09→16:13)
[2024-09-27] MEDS: IBUPROFEN 600 MG TABLET PO ×3 (07:09→20:00)
[2024-09-27] MEDS: LEVOTHYROXINE SODIUM 25 MCG TABLET PO (07:09)
[2024-09-27 07:40] VITALS: BP 134/67; PULSE 77; RESP 16; TEMP 36.6; O2SAT 99
--- NOTE | 2024-09-27 08:15 | P.PNOB_ITS ---
OB - PN: Subj Subjective Date/time seen: 09/27/24 08:15 Interval history: pp day 1 c/s, sitting in chair, voiding without difficulty Patient comments: no complaints, pain well controlled, incisional pain, tolerating diet and flatus present OB - PN: Obj Data Labs 09/26/24 04:18 OB - PN A/P Plan day: 2 Plan: routine care Comments: POD#2 LTCS - no problems, Time Spent With Patient Time: Total time spent is greater than 50% in coordination of care (as documented) at patient's floor/unit and/or counseling patient: Exam 2 Const: General: comfortable, no acute distress and alert Resp: Effort & Inspection: normal respiratory effort Auscultation: no crackles, no rales and no rhonchi Cardio: Rate: regular rate Heart sounds: no click, no murmurs and no rubs GI: Inspection: non-distended Auscultation: normal bowel sounds Other: Incision - CDI Extrem: General: normal to inspection, no pedal edema and no calf tenderness
[2024-09-27] MEDS: DOCUSATE SODIUM 100 MG CAPSULE PO ×2 (08:30→21:44)
[2024-09-27] MEDS: MULTIVIT/MIN/PREN/FOL AC/IRON TABLET 1 TAB PO (08:30)
[2024-09-27] MEDS: HYDROcodone/acetaminophen (*CRX) 10-325 MG TABLET 1 TAB PO ×2 (11:35→20:00)
--- NOTE | 2024-09-27 12:45 | PC.NURSE ---
Introductions were made, then consulted with patient to assess needs related to . Discussed with mother her?plans to feed?her and the?experience so far. Per mother she would like to only pump and bottle feed, she wishes to no longer put baby to breast. A breast pump was then provided due to mother's request, she would like a [employer] breast pump, paperwork completed and faxed. Instructions given on cleaning, care, usage, that there should be no pain, pumping schedule for milk production, collection, and storage of human milk. Patient was assessed for correct placement, flange size (both nipples measured 17mm and she is using the size 21 flange), to pump for comfort and nipple stretching/stimulation for adequate milk production every 3 hours (8 times in 24 hours) 1-2 times at night. Parents are encouraged to record the pumping schedule on the feeding sheet.?Mother voiced understanding of the education shared along with mom/baby guide and the pump measurement, flange fit handout for additional resource information. Resources provided for inpatient and outpatient services with the feeding sheet, mom/baby guide and name written on the communication board. Mother voiced understanding of information and will call if there is a request for assistance. [facility] referral on mother's chart to be faxed @ discharge to the [facility] office per parent's request. Parents were also shown and taught how to syringe feed from their primary RN, Shyla [place]. Reported all other information to the Primary RN.
[2024-09-27] MEDS: ONDANSETRON HCL ODT 4 MG TABLET PO (16:14)
[2024-09-27] MEDS: LIDOCAINE 5% PATCH 1 PATCH TRANSDERM (20:15)
[2024-09-27 20:45] VITALS: BP 128/76; PULSE 90; RESP 16; TEMP 37.1; O2SAT 100
[2024-09-28] MEDS: ACETAMINOPHEN 325 MG TABLET 650 MG PO ×2 (02:20→07:44)
[2024-09-28] MEDS: IBUPROFEN 600 MG TABLET PO ×2 (02:20→07:43)
[2024-09-28] MEDS: HYDROcodone/acetaminophen (*CRX) 5-325 MG TABLET 1 TAB PO ×2 (03:28→08:19)
[2024-09-28] MEDS: LEVOTHYROXINE SODIUM 25 MCG TABLET PO (07:43)
[2024-09-28] MEDS: DOCUSATE SODIUM 100 MG CAPSULE PO (07:44)
[2024-09-28] MEDS: MULTIVIT/MIN/PREN/FOL AC/IRON TABLET 1 TAB PO (07:44)
[2024-09-28] MEDS: SIMETHICONE 80 MG TAB.CHEW PO ×2 (07:44→11:29)
[2024-09-28 08:50] VITALS: BP 107/61; PULSE 84; RESP 16; TEMP 36.6; O2SAT 99
--- NOTE | 2024-09-28 08:51 | P.PNOB_ITS ---
OB - PN: Subj Subjective Date/time seen: 09/28/24 08:51 Interval history: pp day 1 c/s, sitting in chair, voiding without difficulty Patient comments: no complaints, pain well controlled, incisional pain, tolerating diet and flatus present OB - PN: Obj Data Labs 09/26/24 04:18 OB - PN A/P Plan day: 3 Plan: routine care, discharge home and other Comments: Incision check in one week. Given precautions Time Spent With Patient Time: Total time spent is greater than 50% in coordination of care (as documented) at patient's floor/unit and/or counseling patient: Exam 2 Const: General: comfortable, no acute distress and alert Resp: Effort & Inspection: normal respiratory effort Auscultation: no crackles, no rales and no rhonchi Cardio: Rate: regular rate Heart sounds: no click, no murmurs and no rubs GI: Inspection: non-distended GI Palp: No Tenderness to palpation present (GI) Auscultation: normal bowel sounds Other: Incision - CDI Extrem: General: normal to inspection, no pedal edema and no calf tenderness
--- NOTE | 2024-09-28 10:50 | PM.OBDSVD ---
DS: Admitting Diagnosis Discharge Date September 28, 2024 Admitting Diagnosis term DS: Discharge Diagnosis Discharge Diagnosis (1) Term delivered: Code(s): O80 - Encounter for full-term uncomplicated delivery Status: Acute OB - DS: Summary OB Procedures : None OB Procedures Intrapartum: Spontaneous Vag Delivery OB Procedures: : None Peripartum Data Procedures: Procedures Operation Date: 09/25/24 21:20 Actual Procedure Side Surgeon p Section Emery March MD Time Spent with Patient Time attestation: Total time spent providing and/or coordinating discharge services: DS: Data Data Completed and Pending Pending studies at discharge: Pending at discharge 09/25/24 22:53 Surgical [PTH] Routine Discharge Plan Discharge Discharging Clinician: Alex Connell Patient Disposition: Home, Self-Care Activity: may shower Diet: as tolerated Wound Care Instructions: follow printed instructions Discharge Instructions: Education: Mom and Baby Guide Given to: Mother Follow-Up: Call your delivering provider's office for an appointment to be seen in: 1 Week Mom and baby should come to the [facility] for the follow-up appointment. Appointment Date/Time: September 29, 2024 at 9:00 am What to expect at your follow-up visit: Blood Pressure Check Physical Assessment Call [phone] if you are unable to keep your appointment time. BREAST CARE: * Wear a snug supportive bra. * For engorgement discomfort: Breast Feeding: * Apply warm moist washcloths * Express milk as needed to relieve engorgement * Wear loose clothing Bottle Feeding: * May apply ice packs * For sore nipples: * Identify correct latch-on * Apply warm moist washcloths before and after nursing * Air dry nipples after nursing * May apply Lansinoh cream to nipples ABDOMINAL INCISION: (if applicable) * Allow incision to air dry * Do NOT use lotions for powders on your incision * When showering, allow soap and water to run over the incision, but do not wash incision EPISIOTOMY/PERINEAL CARE: * Until bleeding stops, use your charla bottle after urinating * Change your pad frequently throughout the day * You may take sitz baths several times a day (fill your bathtub with warm water and soak for 20 minutes.) Do NOT bathe in the water * No tub baths until seen by your physician - You may shower ACTIVITY: * Rest as much as possible. * Do not exercise or lift anything heavier than your baby (such as laundry or other children.) * Avoid stairs or driving as much as possible. * Do not put anything into the vagina. No douching, tampons, or sexual activity until seen by physician. NOTIFY PHYSICIAN IF YOU HAVE ANY QUESTIONS OR IF ANY OF THE FOLLOWING SYMPTOMS OCCUR: * If your episiotomy or incision becomes red, swollen, or more painful than what you have experienced in the hospital. * If your vaginal bleeding becomes foul smelling. * If your vaginal bleeding becomes more heavy than a period or if your bleeding changes from pink to bright red. However, you may pass an occasional walnut-sized clot once or twice for the first week . * If you experience a sharp, shooting pain in you calves. * If you discover a hard, reddened area on your breast or if you experience flu-like symptoms. DIET: * Eat regular, well-balanced meals. * Drink plenty of fluids daily. If , drink to thirst. Patient Instructions: Caring for Your Baby (DC), (DC) Patient Language: [place] Stand Alone Forms: General Discharge Information Follow-up/Referrals: Emery March MD [Physician] - Discharge Medications: New hydrocodone-acetaminophen 5-325 mg tablet 1 - 2 tablet PO Q6H PRN (Reason: pain) Qty: 25 0RF Continued albuterol sulfate 90 mcg/actuation HFA aerosol inhaler 1 inh inhalation Q4H Qty: 8.5 0RF No Action levothyroxine 25 mcg capsule 25 mcg PO DAILY lamotrigine 100 mg tablet 100 mg PO DAILY valacyclovir 500 mg tablet 500 mg PO BID Date of admission: 09/25/24 16:02 Primary Care Provider: Suki Romeo Admitting Provider: Alex Connell Attending physician on admission: Alex Connell Condition: Stable
[2024-09-28] MEDS: HYDROcodone/acetaminophen (*CRX) 10-325 MG TABLET 1 TAB PO (11:29)
--- NOTE | 2024-09-28 12:15 | PC.NURSE ---
Consulted with mother concerning needs and she shared her ability to independently use her breast pump without pain. Mother is pumping and bottle feeding only. Mother is feeding appropriately for growth of infant and understands stimulating to eat if needed. Infant has had appropriate feedings in the last 24 hours meets the outcomes for weight, output, blood sugar and jaundice at this time. Reinforced understanding of milk production, transition of milk, signs of adequate intake, transition of stool, prevention/relief of engorgement, plugged ducts, mastitis, responsive feeding watching for feeding cues, community resources, and when to call a provider using the resource of the feeding sheet along with the mom and baby guide. Mother voiced understanding of the information shared, is confident to continue effectively feed her at home, when to call for assistance, denies any additional assistance or education at this time. [facility] Referral form completed and faxed to the [facility] office, physical copy placed on mother's chart. Reported to the Primary RN.
[2024-09-29 09:26] VITALS: BP 119/64; PULSE 86; RESP 20; TEMP 36.9; O2SAT 100
== END 2024-09-28 13:45 | disposition home or self-care (01) | DRG 787 ==
LOC: ANHLDR 16:56 → ANHOB2 09-26 02:21
PROVIDERS: Obstetrics & Gynecology; Admitting Provider Obstetrics & Gynecology; PCP Physician Assistant Medical; Referring Provider Advanced Practice Midwife; Visit Provider Obstetrics & Gynecology
PROC: 10D00Z1 Extraction of Products of Conception, Low, Open Approach (ICD-10-PCS; CPT 59514; principal; 2024-09-25 21:20)
DX: O36.8330 Maternal care for abnormalities of the fetal heart rate or rhythm, third trimester, not applicable or unspecified (principal); O41.03X0 Oligohydramnios, third trimester, not applicable or unspecified; Z37.0 Single live birth; Z3A.39 39 weeks gestation of pregnancy; O69.81X0 Labor and delivery complicated by cord around neck, without compression, not applicable or unspecified
CPT/HCPCS: 36415; 74018; 85025; 86593; 86703; 86850; 86900; 86901; 88307; A9270; G0432; J0690; J1100; J1885; J2004; J2274; J2405; J2590; J2795